=== PATIENT | male | born 1930 | race Caucasian/White ===

== ENCOUNTER 2017-04-10 12:10 | Emergency (ER) | payer MEDICARE, OTHER ==
[2017-04-10] MEDS ORDERED: Tetan/Diph/Pertus SYR(Tdap)* 0.5 ML SYR(BOOSTRIX) use SYR IM ONE (12:19)
[2017-04-10] MEDS ORDERED: Lidocaine 2% EPI 1:200000 MPF* 20 ML VIAL ONE (13:05)
--- NOTE | 2017-04-10 13:06 | RAD ---
HISTORY: Fall, head trauma COMPARISONS: November 17, 2007 TECHNIQUE: Multiple contiguous axial CT scans were obtained of the head without intravenous contrast. FINDINGS: HEMORRHAGE/INFARCT: There is no hemorrhage or acute infarct. MASSES/SHIFT: There is no mass or shift. EXTRA-AXIAL SPACES: There are no extra-axial fluid collections. SULCI AND VENTRICLES: The sulci and ventricles are normal in size and position for the patient's stated age. CEREBRUM: There are no focal parenchymal abnormalities. BRAINSTEM: There are no focal parenchymal abnormalities. CEREBELLUM: There are no focal parenchymal abnormalities. VESSELS: The vessels are grossly normal. PARANASAL SINUSES: The paranasal sinuses are clear. ORBITS: The orbits are unremarkable. BONES AND SOFT TISSUE: There is soft tissue swelling of the right frontal scalp. OTHER: None IMPRESSION: NO ACUTE INTRACRANIAL PATHOLOGY.
--- NOTE | 2017-04-10 13:09 | RAD ---
INDICATION: Fall. COMPARISON: No relevant prior exams available on the [facility] PACS for comparison. TECHNIQUE: Multidetector CT images foramen magnum to lung apices without contrast. Multiplanar reformation. REPORT: Normal vertebral alignment accounting for exam positioning without spondylolisthesis or subluxation at any level. Negative for cervical vertebral body or posterior element fracture. Negative for paravertebral hematoma. Advanced disc space narrowing with associated vertebral endplate osteophytosis and subchondral sclerosis at C5-C6. Less marked disc space narrowing at C6-C7. Mild multilevel facet joint osteoarthritis. Negative for significant acquired spinal stenosis at any level. IMPRESSION: Negative for traumatic cervical spine injury.
--- NOTE | 2017-04-10 13:21 | RAD ---
HISTORY: Fall, facial trauma COMPARISONS: August 11, 2012 TECHNIQUE: Multiple contiguous axial CT scans were obtained of the face without intravenous contrast, with coronal and sagittal multiplanar reformations. FINDINGS: BONES: There is no displaced fracture or dislocation. The orbital rim is intact. The zygomatic arch is intact. The pterygoid plates are intact. Degenerative changes are noted of the spine. ORBITS: The globes are round. The optic nerves are symmetric. The extraocular musculature is normal. There is no post septal or intraconal inflammatory change. There is no retrobulbar hematoma. PARANASAL SINUSES: There is mucosal thickening of the maxillary sinuses and ethmoid air cells. BRAIN AND SOFT TISSUE: There is soft tissue swelling of the right frontal scalp. OTHER: None. IMPRESSION: NO FACIAL FRACTURE
[2017-04-10 14:14] VITALS: BP 170/72
--- NOTE | 2017-04-11 08:16 | ED ---
Lanie Davis Gabriel, scribed for Brandon Talley MD on 04/10/17 at 1227 . Adult Trauma - HPI Summary HPI Summary: This patient is a 86 year old M BIBA to [facility] s/p fall that occurred [facility]. Patient had just finished a water Sal class at [employer] and was walking to his car in the parking lot when his legs became weak and he fell. Upon arrival patient was able to ambulate from the stretcher to the bed. Patient denies LOC, CP, SOB, dizziness, neck pain, memory loss, and confusion. Patient is not on blood thinner but took ASA this morning for a sore throat. Patient is unaware of when he has his last tetanus shot. - History of Current Complaint Stated Complaint: FALL Time Seen by Provider: 04/10/17 12:16 Hx Obtained From: Patient Mechanism of Injury: Fall Loss of Consciousness: no loss of consciousness Onset/Duration: Started Minutes Ago, Still Present Onset of Pain: Immediate Onset Severity: Mild Current Severity: Mild Pain Intensity: 2 Pain Scale Used: 0-10 Numeric Associated Signs & Symptoms: Positive: Negative - LOC, CP, SOB, dizziness, neck pain, and confusion. - Additional Pertinent History Primary Care Physician: [id number] - Allergy/Home Medications Allergies/Adverse Reactions: Allergies Allergy/AdvReac Type Severity Reaction Status Date / Time No Known Allergies Allergy Verified 05/05/15 02:22 PMH/Surg Hx/FS Hx/Imm Hx Endocrine/Hematology History: Reports: Hx Thyroid Disease - hypothyroidism Denies: Hx Diabetes Cardiovascular History: Reports: Hx Deep Vein Thrombosis - 2009, Other Cardiovascular Problems/Disorders - chronic lower extremity lymphadema Denies: Hx Hypertension Respiratory History: Reports: Hx Sleep Apnea - pt's own CPAP, Other Respiratory Problems/Disorders - KRISTA Denies: Hx Asthma, Hx Chronic Obstructive Pulmonary Disease (COPD) GI History: Denies: Hx Ulcer History: Reports: Hx Benign Prostatic Hyperplasia - s/p TURP, 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, Other Problems/ Disorders - TURP, R nephrectomy s/p renal cell carcinoma Sensory History: Reports: Hx Contacts or Glasses, Hx Glaucoma, Hx Hearing Aid - Bilat., Hx Hearing Problem Opthamlomology History: Reports: Hx Contacts or Glasses, Hx Glaucoma - Cancer History Cancer Type, Location and Year: Right kidney removed in 1990 - Surgical History Surgery Procedure, Year, and Place: t&a, gall bladder, bilat knee replacement, thyroid nodules removed, bilateral cataract, appendix, right kidney Infectious Disease History: Denies: Hx Hepatitis, Hx Human Immunodeficiency Virus (HIV), History Other Infectious Disease - Family History Known Family History: Negative: Renal Disease, Respiratory Disease, Seizure Disorder - Social History Alcohol Use: None Substance Use Type: Reports: None Smoking Status (MU): Never Smoked Tobacco Review of Systems Negative: Chest Pain Negative: Shortness Of Breath Musculoskeletal: Negative - neck pain, dizziness, confusion, memory loss Positive: Other - laceration to face Neurological: Negative - LOC All Other Systems Reviewed And Are Negative: Yes Physical Exam - Summary Physical Exam Summary: VITAL SIGNS: Reviewed. GENERAL: Patient is an obese male who is lying comfortable in the stretcher. Patient is not in any acute respiratory distress. HEAD AND FACE: laceration on the right eyebrow and right side of face. EYES: PERRLA, EOMI x 2, No injected conjunctiva, no nystagmus. EARS: Hearing grossly intact. Ear canals and tympanic membranes are within normal limits. MOUTH: Oropharynx within normal limits. NECK: Supple, trachea is midline, no adenopathy, no JVD, no carotid bruit, no c- spine tenderness, neck with full ROM. CHEST: Symmetric, no tenderness at palpation LUNGS: Clear to auscultation bilaterally. No wheezing or crackles. CVS: Regular rate and rhythm, S1 and S2 present, no murmurs or gallops appreciated. ABDOMEN: Soft, non-tender. No signs of distention. No rebound no guarding, and no masses palpated. Bowel sounds are normal. EXTREMITIES: FROM in all major joints, no edema, no cyanosis or clubbing. NEURO: Alert and oriented x 3. No acute neurological deficits. Speech is normal and follows commands. SKIN: Dry and warm, abrasion to the right ventral aspect of the hand Triage Information Reviewed: Yes Vital Signs On Initial Exam: Initial Vitals Temp Pulse Resp BP Pulse Ox 97.5 F 64 17 157/79 97 04/10/17 12:25 04/10/17 12:25 04/10/17 12:25 04/10/17 12:25 04/10/17 12:25 Vital Signs Reviewed: Yes Procedures - Laceration/Wound Repair 1 Location: head - above right eye Description: Irregular Anesthesia: 1.0%, Lido Betadine Prep?: Yes Irrigated w/ Saline (ccs): 500 Suture Type: Nylon Number of Sutures: 7 Diagnostics - Vital Signs Vital Signs Temp Pulse Resp BP Pulse Ox 04/10/17 14:12 97.9 F 66 17 170/72 97 04/10/17 12:25 97.5 F 64 17 157/79 97 - Laboratory Lab Statement: Any lab studies that have been ordered have been reviewed, and results considered in the medical decision making process. - CT CT C-spine CT Interpretation Completed By: Radiologist - Negative for traumatic cervical spine injury. ED physician has reviewed this radiology report. CT Brain CT Interpretation Completed By: Radiologist - NO ACUTE INTRACRANIAL PATHOLOGY. ED physician has reviewed this radiology report. CT Maxillofacial CT Interpretation Completed By: Radiologist - NO FACIAL FRACTURE ED physician has reviewed this radiology report. Adult Trauma Course/Dx - Course Assessment/Plan: This patient is a 86 year old M BIBA to [facility] s/p fall that occurred [employer]. Patient had just finished a water Sal class at [employer] and was walking to his car in the parking lot when his legs became weak and he fell. Upon arrival patient was able to ambulate from the stretcher to the bed. Patient denies LOC, CP, SOB, dizziness, neck pain, and confusion. Patient is not on blood thinner but took ASA this morning for a sore throat. Patient is unaware of when he has his last tetanus shot. CT C-spine reveals, per radiologist, Negative for traumatic cervical spine injury. CT Maxillofacial reveals, per radiologist, NO FACIAL FRACTURE. CT Brain reveals, per radiologist , NO ACUTE INTRACRANIAL PATHOLOGY. Patient had a mechanical fall. He denies MARRUFO dizziness double vision SOB CP and palpitations. There was laceration on the right eyebrow that was repaired he was give tetanus vaccine. He did not require pain medication. The patient is able to ambulating with cane and has no deficits so he will be discharged and follow up PCP. The patient is agreeable with this plan. - Diagnoses Differential Diagnosis/HQI/PQRI: Positive: Abrasion(s), Contusion(s), Fracture, Dislocation, Hematoma(s), Laceration(s), Sprain, Strain Provider Diagnoses: Laceration of face, Mechanical fall , Facial contusion, Abrasion Discharge - Discharge Plan Condition: Stable Disposition: HOME Patient Education Materials: Laceration (ED), Fall Prevention for Older Adults (ED) Referrals: Mikel Arriola MD [Medical Doctor] - 3 Days Additional Instructions: RETURN TO EMERGENCY DEPARTMENT FOR ANY NEW OR WORSENING SYMPTOMS The documentation as recorded by the Lanie strong Gabriel accurately reflects the service I personally performed and the decisions made by , Brandon Talley MD.
== END 2017-04-10 14:12 | disposition home or self-care (01) ==
LOC: ED 12:10
DX: S01.111A Laceration without foreign body of right eyelid and periocular area, initial encounter (principal); Z86.718 Personal history of other venous thrombosis and embolism; Z96.653 Presence of artificial knee joint, bilateral; N40.0 Benign prostatic hyperplasia without lower urinary tract symptoms; E03.9 Hypothyroidism, unspecified; W19.XXXA Unspecified fall, initial encounter; Y93.01 Activity, walking, marching and hiking; Y92.481 Parking lot as the place of occurrence of the external cause
CPT/HCPCS: 70450; 70486; 72125; 90471; 90715; 99282

== ENCOUNTER 2017-05-04 16:20 | Inpatient (IN) | payer MEDICARE, OTHER ==
--- NOTE | 2017-05-04 17:15 | RAD ---
INDICATION: Cough. COMPARISON: Comparison is made with a prior chest x-ray study from May 03, 2015. TECHNIQUE: A portable view of the chest was obtained. FINDINGS: Cardiac and mediastinal contours appear to be within normal limits. There is a small infiltrate at the right lung base. The lungs are otherwise clear. No pleural effusion is seen. IMPRESSION: SMALL RIGHT BASILAR INFILTRATE.
[2017-05-04 17:18] LABS: ABS Basophils 0 10^3/ul (0-0.2); ABS Eosinophils 0.1 10^3/ul (0-0.6); ABS Lymphocytes 1.2 10^3/ul (1.0-4.8); ABS Monocytes 0.7 10^3/ul (0-0.8); ABS Neutrophils 2.6 10^3/ul (1.5-7.7); ABS Nucleated RBC 0 10^3/ul; Eosinophil % 1.2 % (0-6); Hematocrit 39 % (42-52); Hemoglobin 13.7 g/dl (14.0-18.0); Lymphocyte % 26.3 % (25-47); Mean Corpuscular HGB Conc 35 g/dl (31-36); Mean Corpuscular Hemoglobin 31 pg (27-31); Mean Corpuscular Volume 88 fL (80-94); Mean Platelet Volume 8 um3 (7.4-10.4); Nucleated Red Blood Cells % 0.1; Platelet Count 108 10^3/ul (150-450); Red Blood Count 4.46 10^6/ul (4.0-5.4); Red Cell Distribution Width 14 % (10.5-15); White Blood Count 4.6 10^3/ul (3.5-10.8)
[2017-05-04 17:32] LABS: INR 1.13 (0.77-1.02)
[2017-05-04 17:35] LABS: Urine Appearance Clear; Urine Blood Negative (Negative); Urine Color Yellow; Urine Ketones Negative (Negative); Urine Protein 1+(30 mg/dL) (Negative); Urine Specific Gravity 1.017 (1.010-1.030); Urine Urobilinogen Negative (Negative)
[2017-05-04 17:49] LABS: EGFR Non-African American 47.8 (>60)
[2017-05-04] MEDS ORDERED: NS 0.9% 1000 ML* 1,000 ML IV ONE (18:21)
[2017-05-04] MEDS ORDERED: Levofloxacin 750 MG IVPREMIX(* 750 MG/150 ML BAG IVPB ONE (18:21)
[2017-05-04] MEDS ORDERED: Oseltamivir CAP* 75 MG CAP PO ONE (18:21)
--- NOTE | 2017-05-04 18:33 | ED ---
Pearl Davis Thomas, scribed for Raguh Epps MD on 05/04/17 at 1655 . Influenza-Like Illness - HPI Summary HPI Summary: The patient is an 86 year old male presenting with a fever, generalized weakness , and nasal drainage that began today. He has been dealing with a cough for the last few weeks that significantly worsened today. - History of Current Complaint Chief Complaint: EDFluSymptoms Time Seen by Provider: 05/04/17 16:27 Hx Obtained From: Patient Onset/Duration: Lasting Hours - onset today, Still Present Associated Signs & Symptoms: Fever, Cough, Nasal Congestion Related Hx: Possible Flu/Infectious Exposure - Allergy/Home Medications Allergies/Adverse Reactions: Allergies Allergy/AdvReac Type Severity Reaction Status Date / Time No Known Allergies Allergy Verified 05/05/15 02:22 PMH/Surg Hx/FS Hx/Imm Hx Endocrine/Hematology History: Reports: Hx Thyroid Disease - hypothyroidism Denies: Hx Diabetes Cardiovascular History: Reports: Hx Deep Vein Thrombosis - 2009, Other Cardiovascular Problems/Disorders - chronic lower extremity lymphadema Denies: Hx Hypertension Respiratory History: Reports: Hx Sleep Apnea - pt's own CPAP, Other Respiratory Problems/Disorders - KRISTA Denies: Hx Asthma, Hx Chronic Obstructive Pulmonary Disease (COPD) GI History: Denies: Hx Ulcer History: Reports: Hx Benign Prostatic Hyperplasia - s/p TURP, 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, Other Problems/ Disorders - TURP, R nephrectomy s/p renal cell carcinoma Sensory History: Reports: Hx Contacts or Glasses, Hx Glaucoma, Hx Hearing Aid - Bilat., Hx Hearing Problem Opthamlomology History: Reports: Hx Contacts or Glasses, Hx Glaucoma - Cancer History Cancer Type, Location and Year: Right kidney removed in 1990 - Surgical History Surgery Procedure, Year, and Place: t&a, gall bladder, bilat knee replacement, thyroid nodules removed, bilateral cataract, appendix, right kidney - Immunization History Date of Tetanus Vaccine: not upto date Infectious Disease History: No Infectious Disease History: Denies: Hx Hepatitis, Hx Human Immunodeficiency Virus (HIV), History Other Infectious Disease, Traveled Outside the [place] in Last 30 Days - Family History Known Family History: Negative: Renal Disease, Respiratory Disease, Seizure Disorder - Social History Alcohol Use: None Substance Use Type: Reports: None Smoking Status (MU): Never Smoked Tobacco Review of Systems Positive: Fever, Other - Generalized weakness Positive: Nasal Discharge Positive: Cough All Other Systems Reviewed And Are Negative: Yes Physical Exam - Summary Physical Exam Summary: Appearance: The patient is well-nourished in no acute distress and in no acute pain. Skin: The skin is warm and dry and skin color reflects adequate perfusion. HEENT: The head is normocephalic and atraumatic. The pupils are equal and reactive. The conjunctivae are clear and without drainage. Nares are patent and with congestion. Mouth reveals moist mucous membranes and the throat is without erythema and exudate. The external ears are intact. The ear canals are patent and without drainage. The tympanic membranes are intact. Neck: the neck is supple with full range of motion and non-tender. There are no carotid bruits. There is no neck vein distension. Respiratory: Chest is non-tender. He has coarse upper airway sounds. Cardiovascular: Heart is regular rate and rhythm. There is no murmur or rub auscultated. There is no peripheral edema and pulses are symmetrical and equal. Abdomen: The abdomen is soft and non-tender. There are normal bowel sounds heard in all four quadrants and there is no organomegaly palpated. Musculoskeletal: There is no back tenderness noted. Extremities are non-tender with full range of motion. There is good capillary refill. There is no peripheral edema or calf tenderness elicited. Neurological: Patient is alert and oriented to person, place and time. The patient has symmetrical motor strength in all four extremities. Cranial nerves are grossly intact. Deep tendon reflexes are symmetrical and equal in all four extremities. Psychiatric: The patient has an appropriate affect and does not exhibit any anxiety or depression. Triage Information Reviewed: Yes Vital Signs On Initial Exam: Initial Vitals Temp Pulse Resp BP Pulse Ox 100.7 F 82 20 158/69 97 05/04/17 16:24 1818 16:24 18 16:24 05/04/17 16:24 05/04/17 16:24 Vital Signs Reviewed: Yes Diagnostics - Vital Signs Vital Signs Temp Pulse Resp BP Pulse Ox 05/04/17 16:24 100.7 F 82 20 158/69 97 - Laboratory Lab Results: Lab Results 05/04/17 05/04/17 05/04/17 Range/Units 17:05 17:06 17:06 WBC 4.6 (3.5-10.8) 10^3/ul RBC 4.46 (4.0-5.4) 10^6/ul Hgb 13.7 L (14.0-18.0) g/dl Hct 39 L (42-52) % MCV 88 (80-94) fL MCH 31 (27-31) pg MCHC 35 (31-36) g/dl RDW 14 (10.5-15) % Plt Count 108 L (150-450) 10^3/ul MPV 8 (7.4-10.4) um3 Neut % (Auto) 57.4 (38-83) % Lymph % (Auto) 26.3 (25-47) % [place] % (Auto) 14.7 H (1-9) % Eos % (Auto) 1.2 (0-6) % Baso % (Auto) 0.4 (0-2) % Absolute Neuts (auto) 2.6 (1.5-7.7) 10^3/ul Absolute Lymphs (auto) 1.2 (1.0-4.8) 10^3/ul Absolute Monos (auto) 0.7 (0-0.8) 10^3/ul Absolute Eos (auto) 0.1 (0-0.6) 10^3/ul Absolute Basos (auto) 0 (0-0.2) 10^3/ul Absolute Nucleated RBC 0 10^3/ul Nucleated RBC % 0.1 INR (Anticoag Therapy) (0.77-1.02) Sodium 136 (133-145) mmol/L Potassium 4.3 (3.5-5.0) mmol/L Chloride 104 (101-111) mmol/L Carbon Dioxide 25 (22-32) mmol/L Anion Gap 7 (2-11) mmol/L BUN 18 (6-24) mg/dL Creatinine 1.41 H (0.67-1.17) mg/dL Est GFR ( Amer) 61.4 (>60) Est GFR (Non-Af Amer) 47.8 (>60) BUN/Creatinine Ratio 12.8 (8-20) Glucose 122 H (70-100) mg/dL Lactic Acid (0.5-2.0) mmol/L Calcium 9.1 (8.6-10.3) mg/dL Total Bilirubin 0.60 (0.2-1.0) mg/dL AST 36 (13-39) U/L ALT 39 (7-52) U/L Alkaline Phosphatase 54 (34-104) U/L Troponin I 0.01 (<0.04) ng/mL C-Reactive Protein 11.95 H (< 5.00) mg/L Total Protein 6.4 (6.4-8.9) g/dL Albumin 3.9 (3.2-5.2) g/dL Globulin 2.5 (2-4) g/dL Albumin/Globulin Ratio 1.6 (1-3) Urine Color Yellow Urine Appearance Clear Urine pH 6.0 (5-9) Ur Specific [place] 1.017 (1.010-1.030) Urine Protein 1+(30 mg/dl) H (Negative) Urine Ketones Negative (Negative) Urine Blood Negative (Negative) Urine Nitrate Negative (Negative) Urine Bilirubin Negative (Negative) Urine Urobilinogen Negative (Negative) Ur Leukocyte Esterase Negative (Negative) Urine WBC (Auto) Absent (Absent) Urine RBC (Auto) Absent (Absent) Urine Bacteria Absent (Absent) Urine Glucose Negative (Negative) Influenza A (Rapid) (Negative) Influenza B (Rapid) (Negative) 05/04/17 05/04/17 05/04/17 Range/Units 17:06 17:06 17:12 WBC (3.5-10.8) 10^3/ul RBC (4.0-5.4) 10^6/ul Hgb (14.0-18.0) g/dl Hct (42-52) % MCV (80-94) fL MCH (27-31) pg MCHC (31-36) g/dl RDW (10.5-15) % Plt Count (150-450) 10^3/ul MPV (7.4-10.4) um3 Neut % (Auto) (38-83) % Lymph % (Auto) (25-47) % [place] % (Auto) (1-9) % Eos % (Auto) (0-6) % Baso % (Auto) (0-2) % Absolute Neuts (auto) (1.5-7.7) 10^3/ul Absolute Lymphs (auto) (1.0-4.8) 10^3/ul Absolute Monos (auto) (0-0.8) 10^3/ul Absolute Eos (auto) (0-0.6) 10^3/ul Absolute Basos (auto) (0-0.2) 10^3/ul Absolute Nucleated RBC 10^3/ul Nucleated RBC % INR (Anticoag Therapy) 1.13 H (0.77-1.02) Sodium (133-145) mmol/L Potassium (3.5-5.0) mmol/L Chloride (101-111) mmol/L Carbon Dioxide (22-32) mmol/L Anion Gap (2-11) mmol/L BUN (6-24) mg/dL Creatinine (0.67-1.17) mg/dL Est GFR ( Amer) (>60) Est GFR (Non-Af Amer) (>60) BUN/Creatinine Ratio (8-20) Glucose (70-100) mg/dL Lactic Acid 1.3 (0.5-2.0) mmol/L Calcium (8.6-10.3) mg/dL Total Bilirubin (0.2-1.0) mg/dL AST (13-39) U/L ALT (7-52) U/L Alkaline Phosphatase (34-104) U/L Troponin I (<0.04) ng/mL C-Reactive Protein (< 5.00) mg/L Total Protein (6.4-8.9) g/dL Albumin (3.2-5.2) g/dL Globulin (2-4) g/dL Albumin/Globulin Ratio (1-3) Urine Color Urine Appearance Urine pH (5-9) Ur Specific [place] (1.010-1.030) Urine Protein (Negative) Urine Ketones (Negative) Urine Blood (Negative) Urine Nitrate (Negative) Urine Bilirubin (Negative) Urine Urobilinogen (Negative) Ur Leukocyte Esterase (Negative) Urine WBC (Auto) (Absent) Urine RBC (Auto) (Absent) Urine Bacteria (Absent) Urine Glucose (Negative) Influenza A (Rapid) Negative (Negative) Influenza B (Rapid) Positive H (Negative) Result Diagrams: 05/04/17 17:06 05/04/17 17:06 Lab Statement: Any lab studies that have been ordered have been reviewed, and results considered in the medical decision making process. - Radiology CXR Xray Interpretation: Positive (See Comments) - SMALL RIGHT BASILAR INFILTRATE. Dr. Epps has reviewed this report. Radiology Interpretation Completed By: Radiologist Flu Symptom Course/Dx - Course Course Of Treatment: Mr. Shah has has URI symptoms for less than a day. He is too weak to safely walk on his own and his is too frail to help him (his BMI is 39). He was found to have influenza B and a secondary pneumonia. He was treated with Tamiflu, IV NS and Levaquin. - Diagnoses Provider Diagnoses: Influenza, Pneumonia - Physician Notifications Discussed Care Of Patient With: Ryley Weeks Time Discussed With Above Provider: 18:24 Instructed by Provider To: Admit As Inpatient Discharge - Discharge Plan Condition: Stable Disposition: ADMITTED TO [facility] Referrals: Niurka Lei MD [Primary Care Provider] - The documentation as recorded by the Pearl strong Thomas accurately reflects the service I personally performed and the decisions made by me, Raghu Epps MD.
[2017-05-04] MEDS ORDERED: Acetaminophen TAB* 325 MG PO ONE (19:19)
[2017-05-04] MEDS ORDERED: Albuterol 2.5 MG/3 ML NEB.SOL* (0.083%) INH PRN (19:22)
[2017-05-04] MEDS ORDERED: Al Hydrox/Mg Hydrox/Simet LIQ* 30 ML UDC PO PRN (19:22)
[2017-05-04] MEDS ORDERED: Magnesium Hydroxide LIQ* 30 ML UDC PO PRN (19:22)
[2017-05-04] MEDS ORDERED: NS 0.9% 1000 ML* 1,000 ML IV SCH (19:30)
[2017-05-04] MEDS: cefTRIAXone(*) 1 GM in D5W 50 ML BAG* 50 ML IVPB SCH (21:14)
[2017-05-04] MEDS: Azithromycin IV(*) 500 MG in NS 0.9% 250 ML* 250 ML IVPB SCH (22:26)
[2017-05-04] MEDS: Heparin VIAL(*) 5000 UNITS/ML VIAL (FIVE THOUSAND) SUBCUT SCH (22:44)
[2017-05-05] MEDS ORDERED: Ondansetron INJ* 2 MG/ML VIAL IV PRN (04:27)
[2017-05-05] MEDS: Heparin VIAL(*) 5000 UNITS/ML VIAL (FIVE THOUSAND) SUBCUT SCH ×3 (06:19→21:22)
[2017-05-05] MEDS: Levothyroxine TAB* 100 MCG TAB PO SCH (06:19)
--- NOTE | 2017-05-05 06:30 | HP ---
CC: Dr. Niurka Lei * HISTORY AND PHYSICAL: DATE OF ADMISSION: 05/04/17 PROVIDER: Lola Rucker NP PRIMARY CARE PROVIDER: Dr. Niurka Lei. ATTENDING PHYSICIAN WHILE IN THE HOSPITAL: Dr. Ryley Weeks * (dictated by Lola Rucker NP). CHIEF COMPLAINT: 1. Weakness. 2. Influenza. HISTORY OF PRESENT ILLNESS: Mr. Shah is an 86-year-old gentleman, who carries a history of BPH; renal cell carcinoma; hypothyroid; chronic kidney disease, stage 3; glaucoma, who was brought to the emergency room by EMS due to weakness and fever. The patient states that he developed a cough approximately 3 days ago and the cough became worse yesterday, he reports this is a nonproductive cough. He states that today, he felt a fever and generalized weakness, muscle and joint aches. He states that his fever at home today was 101.7; at that time , his called his primary care physician, who instructed him to come to the emergency room. Due to his increased level of weakness, EMS was called and he was brought to the emergency room by EMS. He denies any other complaints other than the weakness, fatigue, and fever. He denies any falls. Denies any head injury. Denies any loss of consciousness. Denies any nausea, vomiting, or diarrhea. Denies any abdominal pain. Denies any shortness of breath or chest pain. Denies any urinary frequency. He does report urgency, but that is relieved if he stands to urinate. The patient does have a documented fever of 100.7 in the emergency room. Because of his profound weakness, fever, and positive influenza B, we were asked to evaluate him for admission. PAST MEDICAL HISTORY: Significant for: 1. BPH. 2. Renal cell carcinoma. 3. Hypothyroid. 4. Chronic kidney disease, stage 3. 5. Glaucoma. PAST SURGICAL HISTORY: Includes: 1. Right nephrectomy. 2. Prostate resection. 3. Arthroplasty of bilateral knees. 4. Tonsil and adenoids. 5. Appendectomy. 6. Cholecystectomy. 7. Thyroidectomy. ALLERGIES TO MEDICATIONS: No known drug allergies. FAMILY HISTORY: Coronary artery disease. Father had hypertension. Mother had diabetes and mother also had breast cancer. SOCIAL HISTORY: The patient has never smoked. He reports rare use of alcohol. Denies any drug use. He is currently retired as a sheet metal mechanic. He is and lives with his at home. His surrogate decision maker in the event he is unable to make his own decisions is his , her name is Amna Shah, her phone number is [phone]. REVIEW OF SYSTEMS: There was a documented fever. There has been no significant weight change. No double vision. Denies any ear drainage. Does report some rhinorrhea. Denies sore throat. Denies any chest pain. Denies orthopnea or nocturnal dyspnea. There is no abdominal pain. No nausea or vomiting. No diarrhea. No dysuria, no frequency. No seizures or loss of consciousness. No pruritus or skin ulcerations. A review of 14 systems was completed and all others are negative. PHYSICAL EXAMINATION GENERAL: At this time, Mr. Shah is an 86-year-old, who appears flushed, sitting on the stretcher in the emergency room. He does not appear to be in any acute distress. VITAL SIGNS: Blood pressure 171/72, heart rate is 71, respirations are 16 and regular, O2 saturation is 92% to 97% on room air. HEENT: Head is atraumatic, normocephalic. Eyes: EOMs are intact. Sclerae anicteric, not pale. Oral mucosa appears moist. No oropharyngeal erythema. NECK: Supple. LUNGS: With expiratory wheezes throughout bilaterally and diminished on the right base. There are no rales or rhonchi. CARDIAC: Heart sounds S1, S2. Regular rate and rhythm. There are no murmurs, rubs, or gallops. ABDOMEN: Soft and nontender. Bowel sounds are present x4. EXTREMITIES: Pulses are +2 throughout. He is able to move all 4 extremities with 5/5 strength. NEUROLOGIC: He is awake, alert, and oriented x3. His tongue is midline. Speech is clear. There are no gross focal deficits. SKIN: Intact. DIAGNOSTIC STUDIES/LAB DATA: WBC 4.6, RBC 4.46, hemoglobin 13.7, hematocrit 39 , platelet count was 108. INR was 1.13. Chemistry: Sodium 136, potassium 4.3 , chloride 104, carbon dioxide 25, anion gap 7, BUN 18, creatinine 1.41, glucose is 122, lactic acid was 1.3, calcium 9.1. AST 36, ALT 39. Troponin was 0.01. C- reactive protein was 11.95. Urine was clear, pH was 6; specific gravity 1.017; urine protein was 1+; urine ketones, blood, nitrites, bilirubin, , leukocyte esterase, wbc's, rbc's, urine bacteria, and urine glucose were all negative. Influenza A was negative, influenza B was positive. Chest x-ray shows small right basilar infiltrate. ASSESSMENT AND PLAN: Mr. Shah is an 86-year-old man that presented to the emergency room today by EMS for complaints of generalized weakness, fever, and cough. We were asked to evaluate due to his weakness and cough and he will be admitted inpatient for: 1. Weakness. I suspect this is probably related to his fever and influenza. I think that it would be beneficial to get him physical therapy evaluation for strength training so he can return home. His chest x-ray does show a right basilar infiltrate. I suspect this is related to pneumonia. He also tested positive for influenza B, which is probably contributing to his weakness and has a documented fever at home of 101.7 and in the emergency room of 100.7, also feels this is contributing to his generalized weakness and body aches. 2. Suspect right lower lobe pneumonia. We will place him on azithromycin 500 mg IV q.24 hours and ceftriaxone 1 g q.24 hours. He does have some wheezing present during auscultation. I will also order albuterol nebs q.4 hours as needed for shortness of breath and wheezing. 3. Fever. I suspect this is related to his influenza and possible pneumonia. We will continue to treat him with IV antibiotics for the pneumonia and Tamiflu for the influenza and we will give acetaminophen as needed to treat the fever. 4. Influenza B. We will place him on Tamiflu 30 mg p.o. b.i.d. He needs a renal adjusted dose to his creatinine of 1.41. 5. Glaucoma. He will continue his home eye drops timolol 0.5% and latanoprost 0.005%. 6. Benign prostatic hyperplasia. He will be placed on mg. 7. Hypothyroidism. He will continue his levothyroxine 200 mcg. 8. DVT prophylaxis. He will be placed on heparin 5000 units subcu daily q.8 hours. 9. Code status. He is a full code. 10. Fluid, electrolytes, and nutrition. He will be placed on a heart-healthy, caffeine okay diet. TIME SPENT: On this admission was approximately 60 minutes, greater than half that time was spent [id number] with the patient and his obtaining history and physical and the other time was spent going over his plan of care with the patient and implementing the plan of care. I have discussed this with my attending, Dr. Ryley Weeks, and he is in agreement with my plan. LOLA RUCKER, W[employer] TECHNICIAN [id number]/[facility] #: [id number] NIKITA
[2017-05-05 06:40] LABS: ABS Basophils 0 10^3/ul (0-0.2); ABS Eosinophils 0 10^3/ul (0-0.6); ABS Lymphocytes 1.2 10^3/ul (1.0-4.8); ABS Monocytes 0.4 10^3/ul (0-0.8); ABS Neutrophils 1.2 10^3/ul (1.5-7.7); ABS Nucleated RBC 0 10^3/ul; Eosinophil % 0.5 % (0-6); Hematocrit 36 % (42-52); Hemoglobin 12.8 g/dl (14.0-18.0); Lymphocyte % 41.5 % (25-47); Mean Corpuscular HGB Conc 36 g/dl (31-36); Mean Corpuscular Hemoglobin 31 pg (27-31); Mean Corpuscular Volume 88 fL (80-94); Mean Platelet Volume 8 um3 (7.4-10.4); Nucleated Red Blood Cells % 0.3; Platelet Count 93 10^3/ul (150-450); Red Cell Distribution Width 14 % (10.5-15); White Blood Count 2.8 10^3/ul (3.5-10.8)
[2017-05-05] MEDS: Timolol 0.5% OPTH.SOL* BTL BOTH EYES SCH (09:36)
[2017-05-05] MEDS: Oseltamivir CAP* 30 MG CAP PO SCH ×2 (09:37→21:22)
[2017-05-05] MEDS ORDERED: hydrALAZINE IV* 20 MG/ML VIAL IV SLOW PU PRN (12:09)
--- NOTE | 2017-05-05 12:28 | PN ---
Subjective Date of Service: 05/05/17 Interval History: Patient seen and examined at bedside. Denies fever, chills, headache, shortness of breath, chest discomfort, N/V/D. Pt states that he is feeling much better then when he arrived to the hospital. Pt states that his normal blood pressure is 130s systolic and high is no more than 150s. Family History: Unchanged from Admission Social History: Unchanged from Admission Past Medical History: Unchanged from Admission Objective Active Medications: Acetaminophen (Tylenol Tab*) 650 mg PO Q4H PRN Reason: FEVER/PAIN Al Hydrox/Mg Hydrox/Simethicone (Maalox Plus*) 30 ml PO Q6H PRN Reason: INDIGESTION Albuterol (Ventolin 2.5 Mg/3 Ml Neb.Guillermina*) 2.5 mg INH [id number] AWAKE PRN Reason: sob/wheezing Amlodipine Besylate (Norvasc Tab*) 5 mg PO DAILY [facility] Fesoterodine Fumarate (Toviaz (Nf)) 8 mg PO DAILY [facility] Heparin Sodium (Porcine) (Heparin Vial(*)) 5,000 units SUBCUT Q8HR [facility] Hydralazine HCl (Apresoline Iv*) 5 mg IV SLOW PU Q6H PRN Reason: Systolic Bp Greater Than: 185 Sodium Chloride (Ns 0.9% 1000 Ml*) 1,000 mls @ 75 mls/hr IV PER RATE [facility] Stop: 05/06/17 08:49 Ceftriaxone Sodium 1 gm/ (Dextrose) 50 mls @ 200 mls/hr IVPB Q24H [facility] Azithromycin 500 mg/ Sodium (Chloride) 250 mls @ 250 mls/hr IVPB Q24H [facility] Latanoprost (Xalatan 0.005%*) 1 drop BOTH EYES BEDTIME [facility] Levothyroxine Sodium (Synthroid Tab*) 200 mcg PO DAILY@0600 [facility] Magnesium Hydroxide (Milk Of Magnesia Liq*) 30 ml PO Q4H PRN Reason: CONSTIPATION Ondansetron HCl (Zofran Inj*) 4 mg IV Q6H PRN Reason: NAUSEA Oseltamivir Phosphate (Tamiflu Cap*) 30 mg PO BID [facility] Stop: 05/09/17 09:01 Timolol Maleate (Timoptic 0.5% Opth*) 1 drop BOTH EYES DAILY [facility] Vital Signs - 8 hr 05/05/17 05/05/17 05/05/17 07:51 08:29 11:13 Temperature 98.1 F 97.9 F Pulse Rate 77 62 Respiratory 16 16 20 Rate Blood Pressure 164/73 183/67 (mmHg) O2 Sat by Pulse 97 97 97 Oximetry 05/05/17 12:07 Temperature Pulse Rate Respiratory Rate Blood Pressure 192/98 (mmHg) O2 Sat by Pulse Oximetry Oxygen Devices in Use Now: None Appearance: NAD, laying in bed Ears/Nose/Mouth/Throat: Mucous Membranes Moist Respiratory: Symmetrical Chest Expansion and Respiratory Effort Cardiovascular: NL Sounds; No Murmurs; No JVD, RRR Abdominal: NL Sounds; No Tenderness; No Distention Extremities: No Edema Skin: No Rash or Ulcers Neurological: Alert and Oriented x 3, NL Muscle Strength and Tone Lines/Tubes/Other Access: Clean, Dry and Intact Peripheral IV - site benign Nutrition: Taking PO's Result Diagrams: 05/05/17 06:13 05/05/17 06:12 Additional Lab and Data: Microbiology and Other Data: Microbiology 05/05/17 06:45 Gram Stain - Final Sputum Assess/Plan/Problems-Billing Assessment: Mr. Shah is an 86 yo male with PMH significant for BPH, renal cell CA, hypothyroidism, CKD stage 3, and glaucoma who presented to the emergency room with complaints of weakness and cough - Patient Problems (1) Pneumonia Code(s): J18.9 - PNEUMONIA, UNSPECIFIED ORGANISM SNOMED Code(s): 505160632 Comment: - Afebrile and no leukocytosis - Legionella and S. Pneumo urine antigens negative - Sputum culture, pending - Continue azithromycin and ceftriaxone (2) Influenza B Code(s): J10.1 - FLU DUE TO OTH IDENT INFLUENZA VIRUS W OTH RESP MANIFEST SNOMED Code(s): 98845691 Comment: - Continue Tamiflu (renally dosed) and supportive care (3) HTN (hypertension) Code(s): I10 - ESSENTIAL (PRIMARY) HYPERTENSION SNOMED Code(s): 97387202 Comment: - SBP 140-190's - Will start amlodipine and hydralazine PRN for SBP > 185 (4) Weakness Code(s): R53.1 - WEAKNESS SNOMED Code(s): 04361401 Comment: - Resolving - Suspect secondary to PNA and Influenza B - Continue PT (5) BPH (benign prostatic hyperplasia) Code(s): N40.0 - BENIGN PROSTATIC HYPERPLASIA WITHOUT LOWER URINRY TRACT SYMP SNOMED Code(s): 991748295 Comment: - Continue Toviaz (6) Glaucoma Code(s): H40.9 - UNSPECIFIED GLAUCOMA SNOMED Code(s): 00354006 Comment: - Continue timolol and lantanoprost (7) Chronic kidney disease (CKD), stage III (moderate) Code(s): N18.3 - CHRONIC KIDNEY DISEASE, STAGE 3 (MODERATE) SNOMED Code(s): 249225911 Comment: - Stage 3 - Stable, at baseline (8) History of hypothyroidism Code(s): Z86.39 - PERSONAL HISTORY OF ENDO, NUTRITIONAL AND METABOLIC DISEASE SNOMED Code(s): 838832897 Comment: - TSH 3.16 - Continue levothyroxine (9) History of renal cell carcinoma Code(s): Z85.528 - PERSONAL HISTORY OF OTHER MALIGNANT NEOPLASM OF KIDNEY SNOMED Code(s): 368969467 (10) Obstructive sleep apnea on CPAP Code(s): G47.33 - OBSTRUCTIVE SLEEP APNEA (ADULT) (PEDIATRIC) SNOMED Code(s): 10753654 Comment: - Continue CPAP (11) DVT prophylaxis Code(s): ZSO1817 - SNOMED Code(s): 963196713 Comment: - SQ Heparin (12) Full code status Code(s): Z78.9 - OTHER SPECIFIED HEALTH STATUS SNOMED Code(s): 424527265 Status and Disposition: Inpatient. Discharge to home when medically stable, possibly in the morning.
[2017-05-05] MEDS: FESOTERODINE 8 MG PO SCH (12:38)
[2017-05-05] MEDS: amLODIPine TAB* 5 MG PO SCH (12:39)
[2017-05-05] MEDS ORDERED: Latanoprost 0.005%* 2.5 ml BTL BOTH EYES SCH (21:00)
[2017-05-05] MEDS: cefTRIAXone(*) 1 GM in D5W 50 ML BAG* 50 ML IVPB SCH (21:21)
[2017-05-05] MEDS: Azithromycin IV(*) 500 MG in NS 0.9% 250 ML* 250 ML IVPB SCH (22:00)
[2017-05-06] MEDS: Heparin VIAL(*) 5000 UNITS/ML VIAL (FIVE THOUSAND) SUBCUT SCH (05:56)
[2017-05-06] MEDS: Levothyroxine TAB* 100 MCG TAB PO SCH (05:56)
[2017-05-06] MEDS: Acetaminophen TAB* 325 MG PO PRN ×2 (05:56→11:31)
[2017-05-06 07:09] LABS: EGFR Non-African American 50.7 (>60)
[2017-05-06 07:28] LABS: Hematocrit 37 % (42-52); Mean Corpuscular HGB Conc 35 g/dl (31-36); Mean Corpuscular Hemoglobin 31 pg (27-31); Mean Corpuscular Volume 88 fL (80-94); Mean Platelet Volume 8 um3 (7.4-10.4); Platelet Count 97 10^3/ul (150-450); Red Blood Count 4.19 10^6/ul (4.0-5.4); Red Cell Distribution Width 14 % (10.5-15); White Blood Count 3.2 10^3/ul (3.5-10.8)
[2017-05-06 07:55] LABS: ABS Basophils 0 10^3/ul (0-0.2); ABS Eosinophils 0.1 10^3/ul (0-0.6); ABS Lymphocytes 1.5 10^3/ul (1.0-4.8); ABS Monocytes 0.4 10^3/ul (0-0.8); ABS Neutrophils 1.3 10^3/ul (1.5-7.7); ABS Nucleated RBC 0 10^3/ul; Eosinophil % 2.2 % (0-6); Lymphocyte % 45.8 % (25-47); Nucleated Red Blood Cells % 0.2
[2017-05-06] MEDS: FESOTERODINE 8 MG PO SCH (08:10)
[2017-05-06] MEDS: amLODIPine TAB* 5 MG PO SCH (08:10)
[2017-05-06] MEDS: Timolol 0.5% OPTH.SOL* BTL BOTH EYES SCH (08:10)
[2017-05-06] MEDS: Oseltamivir CAP* 30 MG CAP PO SCH (08:10)
[2017-05-06 11:11] VITALS: BP 127/65
--- NOTE | 2017-05-06 12:23 | PN ---
Subjective Date of Service: 05/06/17 Interval History: Patient seen and examined at bedside. Denies fever, chills, shortness of breath , chest discomfort, N/V/D. Pt reports wheezing when laying back, this mostly clears with cough, he also reports nasal congestion and postnasal drip. Pt reports discomfort in his left thigh, feels like he has strained a muscle. Family History: Unchanged from Admission Social History: Unchanged from Admission Past Medical History: Unchanged from Admission Objective Active Medications: Acetaminophen (Tylenol Tab*) 650 mg PO Q4H PRN Reason: FEVER/PAIN Al Hydrox/Mg Hydrox/Simethicone (Maalox Plus*) 30 ml PO Q6H PRN Reason: INDIGESTION Albuterol (Ventolin 2.5 Mg/3 Ml Neb.Guillermina*) 2.5 mg INH [id number] AWAKE PRN Reason: sob/wheezing Amlodipine Besylate (Norvasc Tab*) 5 mg PO DAILY [facility] Fesoterodine Fumarate (Toviaz (Nf)) 8 mg PO DAILY [facility] Heparin Sodium (Porcine) (Heparin Vial(*)) 5,000 units SUBCUT Q8HR [facility] Hydralazine HCl (Apresoline Iv*) 5 mg IV SLOW PU Q6H PRN Reason: Systolic Bp Greater Than: 185 Ceftriaxone Sodium 1 gm/ (Dextrose) 50 mls @ 200 mls/hr IVPB Q24H [facility] Azithromycin 500 mg/ Sodium (Chloride) 250 mls @ 250 mls/hr IVPB Q24H [facility] Latanoprost (Xalatan 0.005%*) 1 drop BOTH EYES BEDTIME [facility] Levothyroxine Sodium (Synthroid Tab*) 200 mcg PO DAILY@0600 [facility] Magnesium Hydroxide (Milk Of Magnesia Liq*) 30 ml PO Q4H PRN Reason: CONSTIPATION Ondansetron HCl (Zofran Inj*) 4 mg IV Q6H PRN Reason: NAUSEA Oseltamivir Phosphate (Tamiflu Cap*) 30 mg PO BID [facility] Stop: 05/09/17 09:01 Timolol Maleate (Timoptic 0.5% Opth*) 1 drop BOTH EYES DAILY [facility] Vital Signs - 8 hr 05/06/17 05/06/17 05/06/17 07:28 08:00 11:09 Temperature 97.7 F 97.8 F Pulse Rate 69 76 Respiratory 16 16 16 Rate Blood Pressure 147/67 127/65 (mmHg) O2 Sat by Pulse 95 95 98 Oximetry Oxygen Devices in Use Now: None Appearance: NAD, laying in bed Ears/Nose/Mouth/Throat: Mucous Membranes Moist Respiratory: Symmetrical Chest Expansion and Respiratory Effort, - - Upper airway rhonchi, Lung sounds diminished Cardiovascular: NL Sounds; No Murmurs; No JVD, RRR Abdominal: NL Sounds; No Tenderness; No Distention Extremities: - - trace bilateral LE edema Skin: No Rash or Ulcers Neurological: Alert and Oriented x 3, NL Muscle Strength and Tone Lines/Tubes/Other Access: Clean, Dry and Intact Peripheral IV - site benign Nutrition: Taking PO's Result Diagrams: 05/06/17 06:14 05/06/17 06:14 Additional Lab and Data: Microbiology and Other Data: Microbiology 05/05/17 06:45 Gram Stain - Final Sputum Assess/Plan/Problems-Billing Assessment: Mr. Shah is an 86 yo male with PMH significant for BPH, renal cell CA, hypothyroidism, CKD stage 3, and glaucoma who presented to the emergency room with complaints of weakness and cough - Patient Problems (1) Pneumonia Code(s): J18.9 - PNEUMONIA, UNSPECIFIED ORGANISM SNOMED Code(s): 012428035 Comment: - Afebrile and no leukocytosis - Legionella and S. Pneumo urine antigens negative - Blood cultures, no growth day 1 - Sputum culture, pending - Continue azithromycin and change to cefdinir (2) Influenza B Code(s): J10.1 - FLU DUE TO OTH IDENT INFLUENZA VIRUS W OTH RESP MANIFEST SNOMED Code(s): 98430951 Comment: - Continue Tamiflu (renally dosed) and supportive care (3) HTN (hypertension) Code(s): I10 - ESSENTIAL (PRIMARY) HYPERTENSION SNOMED Code(s): 44523189 Comment: - SBP 120-160's - Continue amlodipine (4) Weakness Code(s): R53.1 - WEAKNESS SNOMED Code(s): 74221390 Comment: - Resolving - Suspect secondary to PNA and Influenza B (5) BPH (benign prostatic hyperplasia) Code(s): N40.0 - BENIGN PROSTATIC HYPERPLASIA WITHOUT LOWER URINRY TRACT SYMP SNOMED Code(s): 167933632 Comment: - Continue Toviaz (6) Glaucoma Code(s): H40.9 - UNSPECIFIED GLAUCOMA SNOMED Code(s): 10550529 Comment: - Continue timolol and lantanoprost (7) Chronic kidney disease (CKD), stage III (moderate) Code(s): N18.3 - CHRONIC KIDNEY DISEASE, STAGE 3 (MODERATE) SNOMED Code(s): 864144781 Comment: - Stage 3 - Stable, at baseline (8) History of hypothyroidism Code(s): Z86.39 - PERSONAL HISTORY OF ENDO, NUTRITIONAL AND METABOLIC DISEASE SNOMED Code(s): 122769338 Comment: - TSH 3.16 - Continue levothyroxine (9) History of renal cell carcinoma Code(s): Z85.528 - PERSONAL HISTORY OF OTHER MALIGNANT NEOPLASM OF KIDNEY SNOMED Code(s): 344438738 (10) Obstructive sleep apnea on CPAP Code(s): G47.33 - OBSTRUCTIVE SLEEP APNEA (ADULT) (PEDIATRIC) SNOMED Code(s): 79352300 Comment: - Continue CPAP (11) DVT prophylaxis Code(s): UNL8147 - SNOMED Code(s): 820406190 Comment: - SQ Heparin (12) Full code status Code(s): Z78.9 - OTHER SPECIFIED HEALTH STATUS SNOMED Code(s): 871711040 Status and Disposition: Inpatient. Stable for discharge to home today.
--- NOTE | 2017-05-07 16:28 | DS ---
CC: Dr. Niurka Lei * DATE OF ADMISSION: 05/04/2017 DATE OF DISCHARGE: 05/06/2017 ATTENDING PHYSICIAN: Dr. Lyle Lyman * (dictated by Chace Chester NP). PRIMARY CARE PROVIDER: Dr. Niurka Lei. PRIMARY DIAGNOSES: 1. Influenza B. 2. Right lower lobe pneumonia. 3. Hypertension. 4. IV weakness, resolved. SECONDARY DIAGNOSES: 1. Glaucoma. 2. Benign prostatic hyperplasia. 3. Hypothyroidism. STUDIES DONE WHILE IN THE HOSPITAL: Chest x-ray on 05/04/2017: Radiologist's impression: Small right basilar infiltrate. DISCHARGE MEDICATIONS: New home medication: 1. Acetaminophen 650 mg oral every 4 hours as needed for fever or pain. 2. Tamiflu 30 mg oral twice daily for 3 more days to complete a 5 day course. 3. Amlodipine 5 mg oral daily. 4. Azithromycin 250 mg oral daily for 5 more days. 5. Cefdinir 300 mg oral twice daily for 8 more days. Continued home medications: 1. Timolol 0.5% one drop to both eyes daily. 2. Levothyroxine 200 mcg oral daily. 3. Latanoprost 0.005 one drop to both eyes daily. 4. Toviaz 8 mg oral daily. HISTORY OF PRESENT ILLNESS/HOSPITAL COURSE: Mr. Shah is an 86-year-old male with a past medical history significant for BPH, renal cell carcinoma, hypothyroidism, chronic kidney disease stage 3, and glaucoma who presented to the emergency room by EMS with complaints of weakness and fever. The patient had developed a cough approximately 3 days prior to his presentation and then the cough increased. He denied any sputum production. Patient then developed a fever, generalized weakness, muscle and joint pain. He reported having a fever up to 101.7 at home. His called his primary care provider who instructed him to go to the emergency room. Due to his increased level of weakness, she called the EMS who brought him to the emergency room. While in the emergency room, the patient had a temperature of 100.7. He was noted to have profound weakness. He was influenza B positive. He had a chest x-ray showing a right lower lobe infiltrate and the hospitalists were asked to evaluate him for admission. While in the hospital, the patient was treated with Tamiflu on a renally adjusted dose. He received 2 days of this. He remained afebrile with no leukocytosis. His weakness improved after some IV hydration. The patient was placed on azithromycin IV and ceftriaxone IV for his right lower lobe pneumonia. He worked with Physical Therapy and felt better. He was tolerating regular diet. Mr. Shah is stable for discharge to home today. Vital signs are as follows: Temperature 97.8, heart rate 76, respiratory rate 16, O2 sat 98% on room air, blood pressure 127/65. DISCHARGE PLAN: Mr. Shah will be discharged to home. Activity as tolerated. He should be on a regular diet. In regards to his influenza, he will be continued on Tamiflu 30 mg twice daily for 3 more days. This is renally adjusted due to his chronic kidney disease. For his right lower lobe pneumonia , he will be continued on azithromycin 250 mg daily for 5 more days to complete a 7 day course. He will be placed on cefdinir 300 mg oral twice daily for 8 more days to complete a 10 day course of cephalosporin. Patient was noted to be hypertensive during his stay with blood pressures in the 140s to 190s. He was started on amlodipine 5 mg oral daily. He has been encouraged to drink plenty of fluids to stay hydrated. He has a followup appointment with his primary care provider, Dr. Lei, on Friday, May 09 at 9 a.m. He has been asked to return to the emergency room for any chest pain or shortness of breath. He has been asked to call Dr. Lei's office if he develops lightheadedness. POINTS OF FOLLOW UP AT DISCUSSION: Please continue to monitor the patient's blood pressure to make sure that he does not become hypotensive in the setting of his newly added amlodipine. This is a summarized report of a complex medical history and hospital stay. For further details, please see the entire medical record. TIME SPENT: Time for this discharge was approximately 50 minutes, greater than half of that was spent [id number] with the patient and his discussing discharge plans and instructions. CONDITION ON DISCHARGE: Stable. CHACE CHESTER, MARIANNE [id number]/[facility] #: [id number] [facility] CENTERMax
== END 2017-05-06 13:10 | disposition home or self-care (01) | DRG 195 ==
LOC: ED 16:20 → MED 19:20
PROVIDERS: ADMIT Internal Medicine; ATTEND Internal Medicine
DX: J10.08 Influenza due to other identified influenza virus with other specified pneumonia (principal); N18.3 Chronic kidney disease, stage 3 (moderate); E89.0 Postprocedural hypothyroidism; G47.33 Obstructive sleep apnea (adult) (pediatric); N40.0 Benign prostatic hyperplasia without lower urinary tract symptoms; N18.9 Chronic kidney disease, unspecified; H40.9 Unspecified glaucoma; I12.9 Hypertensive chronic kidney disease with stage 1 through stage 4 chronic kidney disease, or unspecified chronic kidney disease; R53.1 Weakness; H91.93 Unspecified hearing loss, bilateral; Z96.653 Presence of artificial knee joint, bilateral; Z82.49 Family history of ischemic heart disease and other diseases of the circulatory system; Z80.3 Family history of malignant neoplasm of breast; Z72.89 Other problems related to lifestyle; Z86.718 Personal history of other venous thrombosis and embolism; Z90.5 Acquired absence of kidney; Z85.528 Personal history of other malignant neoplasm of kidney; Z97.4 Presence of external hearing-aid; Z98.42 Cataract extraction status, left eye; Z98.41 Cataract extraction status, right eye; Z90.49 Acquired absence of other specified parts of digestive tract
CPT/HCPCS: 36415; 71045; 80048; 80053; 81003; 81015; 83605; 84443; 84484; 85025; 85060; 85610; 86140; 87040; 87070; 87205; 87502; 87899; 99285; A9270-GY; J0360; J0456; J0696; J1644; J2405

== ENCOUNTER 2017-07-31 16:56 | Inpatient (IN) | payer MEDICARE, OTHER ==
[2017-07-31 18:05] LABS: Hematocrit 43 % (42-52); Hemoglobin 14.7 g/dl (14.0-18.0); Mean Corpuscular HGB Conc 34 g/dl (31-36); Mean Corpuscular Hemoglobin 30 pg (27-31); Mean Corpuscular Volume 89 fL (80-94); Platelet Count 149 10^3/ul (150-450); Red Blood Count 4.88 10^6/ul (4.0-5.4); Red Cell Distribution Width 14 % (10.5-15); White Blood Count 9.2 10^3/ul (3.5-10.8)
[2017-07-31 18:23] LABS: EGFR Non-African American 46.6 (>60)
--- NOTE | 2017-07-31 18:27 | RAD ---
Indication: Fall, ankle injury. 3 views of the right ankle demonstrates fracture of the medial malleolus and avulsion fracture of the distal fibula. Posterior malleolus appears to be grossly intact. IMPRESSION: Transverse fracture medial malleolus and avulsion fracture of the distal fibula.
--- NOTE | 2017-07-31 18:28 | RAD ---
Indication: Fall, foot injury. 3 views of the right foot demonstrates fracture of the medial and lateral malleolus. The remainder of the foot is unremarkable. The base of the fifth metatarsal is unremarkable. IMPRESSION: Bimalleolar fracture.
[2017-07-31] MEDS ORDERED: Cephalexin CAP* 500 MG PO ONE ×2 (18:32→18:38)
[2017-07-31] MEDS ORDERED: traMADol TAB* 50 MG PO ONE (18:33)
[2017-07-31] MEDS ORDERED: Sulfamethox/Trimethoprim DS 800/160* TAB PO ONE (18:38)
[2017-07-31] MEDS ORDERED: Ondansetron ODT TAB* 4 MG PO ONE (20:22)
[2017-07-31] MEDS ORDERED: Morphine VIAL* 4 MG/ML VIAL (1 ml vial) IV ONE (20:22)
[2017-07-31] MEDS ORDERED: Morphine VIAL* 4 MG/ML VIAL (1 ml vial) IV PRN (22:39)
[2017-08-01] MEDS: NS 0.9% 1000 ML* 1,000 ML IV SCH (01:18)
[2017-08-01] MEDS: oxyCODONE TAB* 5 MG TAB PO PRN ×2 (01:18→20:17)
[2017-08-01] MEDS: Latanoprost 0.005%* 2.5 ml BTL BOTH EYES SCH ×3 (04:18→20:18)
--- NOTE | 2017-08-01 05:25 | HP ---
H&P (Free Text) History and Physical: PCP: Nemo Gray MD Date/Time: 07/31/20170 CC: R ankle FX s/p mechanical fall HPI: Mr Shah is an 86YO male HX renal cell CA s/p R nephrectomy, CKD stg 3a, hypothyroidism, BPH, & glaucoma presents after falling from his lawn tractor 2nd getting his R foot caught. He was unable to stand, but denies significant pain. EMS was called and noted deformity of the R ankle which was confirmed as a bimalleolar FX via XRY upon arrival. He was unable to ambulate afterwards reducing/splinting and family was concerned about taking him home. As such, he will be observed overnight and orthopedics consulted for further management. There was no LOC or head impact. 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 hypothyroidism BPH glaucoma Ambulatory Orders Timolol 0.5% OPTH.TUNG* [Timoptic 0.5% Opth*] 1 drop BOTH EYES QAM 04/09/15 Fesoterodine (NF) [Toviaz (NF)] 8 mg PO DAILY 05/04/17 Latanoprost 0.005%* [Xalatan 0.005%*] 1 drop BOTH EYES QPM 05/04/17 Levothyroxine TAB* [Synthroid TAB*] 200 mcg PO DAILY 05/04/17 Fluticasone NASAL SPRAY 50MCG* [Flonase NASAL SPRAY 50MCG*] 1 spray BOTH NARES DAILY 07/31/17 Lisinopril TAB* [Prinivil TAB*] 5 mg PO DAILY 07/31/17 Allergies No Known Allergies Allergy (Verified 07/31/17 17:27) PSurgHx R nephrectomy TURP B TKA tonsillectomy appendectomy cholecystectomy thyroidectomy SocHx: no tobacco or recreational drugs, rare alcohol; lives with his ; retired; full code status FamHx: positive for CAD, HTN, DM, & breast CA ROS: as above, otherwise reviewed and all were negative vitals: Vital Signs Temp 36.9 C 08/01/17 04:22 Pulse 76 08/01/17 04:22 Resp 16 08/01/17 04:22 BP 160/86 08/01/17 04:30 Pulse Ox 98 08/01/17 04:22 Intake & Output 07/31/17 07/31/17 08/01/17 11:59 23:59 11:59 Output Total 300 Balance -300 Weight 140.704 kg 140.704 kg Output: Urine 300 Constitutional: NAD, normally developed, obese white male HEENM: atraumatic; sclera/conjunctiva: anicteric/clear; hearing: clinically mildly decreased; oropharynx: clear, mucosa moist Neck: soft tissue: non-tender; thyroid: normal Pulmonary: clear to auscultation bilaterally, good aeration, no accessory muscle use CV: RR/RR, normal S1S2, no carotid bruit, no jugular venous distention, 2+ B DP/ PT, no edema Abdominal: soft, non-distended, non-tender, no rebound/guarding/rigidity, normoactive bowel sounds, no hepatosplenomegaly or masses, no costovertebral angle tenderness Musculoskeletal: general: grossly intact, RLE in splint, currently non- ambulatory Integumental: normal appearance and texture of exposed skin Psychiatric orientation: AA&O to PPS affect: calm mood: cooperative eye contact: good content: reliable responses: timely insight: good Testing: Lab Results 07/31/17 07/31/17 08/01/17 Range/Units 17:54 17:54 00:08 WBC 9.2 (3.5-10.8) 10^3/ul RBC 4.88 (4.0-5.4) 10^6/ul Hgb 14.7 (14.0-18.0) g/dl Hct 43 (42-52) % MCV 89 (80-94) fL MCH 30 (27-31) pg MCHC 34 (31-36) g/dl RDW 14 (10.5-15) % Plt Count 149 L (150-450) 10^3/ul MPV 8.0 (7.4-10.4) um3 APTT 35.2 (26.0-36.3) seconds Sodium 141 (139-145) mmol/L Potassium 4.9 (3.5-5.0) mmol/L Chloride 108 (101-111) mmol/L Carbon Dioxide 28 (22-32) mmol/L Anion Gap 5 (2-11) mmol/L BUN 28 H (6-24) mg/dL Creatinine 1.44 H (0.67-1.17) mg/dL Est GFR ( Amer) 60.0 (>60) Est GFR (Non-Af Amer) 46.6 (>60) BUN/Creatinine Ratio 19.4 (8-20) Glucose 116 H (70-100) mg/dL Calcium 9.5 (8.6-10.3) mg/dL Total Bilirubin 0.50 (0.2-1.0) mg/dL AST 13 (13-39) U/L ALT 10 (7-52) U/L Alkaline Phosphatase 40 (34-104) U/L Total Protein 6.6 (6.4-8.9) g/dL Albumin 4.0 (3.2-5.2) g/dL Globulin 2.6 (2-4) g/dL Albumin/Globulin Ratio 1.5 (1-3) R ankle XRY, personally reviewed: IMPRESSION: Transverse fracture medial malleolus and avulsion fracture of the distal fibula. R foot XRY, personally reviewed: IMPRESSION: Bimalleolar fracture. 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
[2017-08-01 05:41] LABS: ABS Basophils 0 10^3/ul (0-0.2); ABS Eosinophils 0.1 10^3/ul (0-0.6); ABS Lymphocytes 1.9 10^3/ul (1.0-4.8); ABS Monocytes 0.6 10^3/ul (0-0.8); ABS Neutrophils 3.5 10^3/ul (1.5-7.7); ABS Nucleated RBC 0 10^3/ul; Eosinophil % 1.8 % (0-6); Hematocrit 40 % (42-52); Hemoglobin 13.9 g/dl (14.0-18.0); Lymphocyte % 31.2 % (25-47); Mean Corpuscular HGB Conc 35 g/dl (31-36); Mean Corpuscular Hemoglobin 31 pg (27-31); Mean Corpuscular Volume 88 fL (80-94); Nucleated Red Blood Cells % 0.1; Platelet Count 126 10^3/ul (150-450); Red Blood Count 4.56 10^6/ul (4.0-5.4); Red Cell Distribution Width 14 % (10.5-15); White Blood Count 6.1 10^3/ul (3.5-10.8)
[2017-08-01 05:48] LABS: INR 1.05 (0.77-1.02)
[2017-08-01] MEDS: Levothyroxine TAB* 100 MCG TAB PO SCH (05:57)
[2017-08-01] MEDS: Omeprazole CAP* 20 MG PO SCH (05:57)
[2017-08-01 05:58] LABS: EGFR Non-African American 51.1 (>60)
[2017-08-01] MEDS: Acetaminophen TAB* 325 MG PO PRN ×2 (05:58→20:17)
[2017-08-01] MEDS ORDERED: Heparin VIAL(*) 5000 UNITS/ML VIAL (FIVE THOUSAND) SUBCUT SCH (06:00)
[2017-08-01] MEDS: Docusate CAP* 100 MG PO SCH ×2 (09:13→20:17)
[2017-08-01] MEDS: Lisinopril TAB* 5 MG PO SCH (09:13)
[2017-08-01] MEDS: Timolol 0.5% OPTH.SOL* BTL BOTH EYES SCH (09:31)
--- NOTE | 2017-08-01 10:37 | RAD ---
INDICATION: Traumatic bimalleolar fracture of the right ankle. COMPARISON: Comparison is made with a prior x-ray study of the right ankle from July 31, 2017. TECHNIQUE: Contiguous axial sections were obtained of the right ankle. Images were reconstructed in the sagittal and coronal planes. FINDINGS: There is diffuse soft tissue swelling present. There is a small avulsion fracture fragment arising from the distal fibula which appears nondisplaced. The fracture fragment measures 1.6 x 0.6 cm in size. In addition, there is a transverse fracture of the medial malleolus which extends to the articular margin. The distal fragment is slightly displaced medially approximately 2 mm. There is mild widening of the medial joint space. There is also a small avulsion fracture fragment extending through the very posterior aspect of the posterior malleolus. The talus and calcaneus appear intact. There appear to be fractures at the bases of the third and fourth metatarsals which are only partially visualized on this exam of the ankle. IMPRESSION: 1. TRANSVERSE SLIGHTLY DISPLACED INTRA-ARTICULAR FRACTURE OF THE MEDIAL MALLEOLUS WITH MILD WIDENING OF THE MEDIAL MORTISE. 2. NONDISPLACED AVULSION FRACTURE FRAGMENT ARISING FROM THE FIBULAR TIP. 3. SMALL NONDISPLACED AVULSION FRACTURE FRAGMENT OF THE POSTERIOR MALLEOLUS. 4. FRACTURES AT THE BASES OF THE FOURTH AND FIFTH METATARSALS WHICH ARE NOT COMPLETELY IMAGED ON THIS STUDY.
[2017-08-01] MEDS ORDERED: Sodium Citrate/Citric Acid* 15 ML UDC ONE (13:16)
[2017-08-01] MEDS ORDERED: Bupivacaine 0.25% SDV* 30 ML ONE (13:36)
[2017-08-01] MEDS ORDERED: ceFAZolin 2 GM PREMIX (*) 2 GM/50 ML BAG IVPB ONE (14:05)
[2017-08-01] MEDS ORDERED: ceFAZolin 1 GM in Dextrose (*) 1 GM/50 ML BAG IVPB ONE (14:05)
[2017-08-01] MEDS ORDERED: fentaNYL* 50 MCG/ML 2 ML VIAL (100 MCG VIAL) ONE (14:21)
[2017-08-01] MEDS ORDERED: EPHEDrine (Pressors)* 50 MG/ML VIAL ONE (14:58)
[2017-08-01] MEDS ORDERED: Propofol* 10 MG/ML 20 ML BTL IV PUSH ONE (15:00)
[2017-08-01] MEDS ORDERED: fentaNYL* 50 MCG/ML 2 ML VIAL (100 MCG VIAL) IV PRN (15:26)
[2017-08-01] MEDS ORDERED: Naloxone* 0.4 MG/ML 1 ML VIAL IV PRN (15:26)
--- NOTE | 2017-08-01 18:54 | PN ---
Subjective Date of Service: 08/01/17 Interval History: Patient seen and examined in recovery, S/P right ankle repair. Patient denies chest pain or shortness of breath. Denies abd pain n/v/d. reports mild right ankle pain, sensation,movement and right toes warm to touch cap refill 3 seconds,. splint intact to right lower leg. Family History: Unchanged from Admission Social History: Unchanged from Admission Past Medical History: Unchanged from Admission Objective Active Medications: Acetaminophen (Tylenol Tab*) 650 mg PO Q6H PRN PRN Reason: FEVER/PAIN Last Admin: 08/01/17 05:58 Dose: 650 mg Docusate Sodium (Colace Cap*) 200 mg PO BID [facility] Last Admin: 08/01/17 09:13 Dose: Not Given Heparin Sodium (Porcine) (Heparin Vial(*)) 5,000 units SUBCUT Q8HR [facility] Sodium Chloride (Ns 0.9% 1000 Ml*) 1,000 mls @ 50 mls/hr IV PER RATE [facility] Last Admin: 08/01/17 01:18 Dose: 50 mls/hr Cefazolin Sodium/Dextrose (Kefzol 1 Gm In Dextrose Duplex (*)) 1 gm in 50 mls @ 200 mls/hr IVPB Q8H [facility] Latanoprost (Xalatan 0.005%*) 1 drop BOTH EYES QPM [facility] Last Admin: 08/01/17 04:18 Dose: Not Given Levothyroxine Sodium (Synthroid Tab*) 200 mcg PO 0600 [facility] Last Admin: 08/01/17 05:57 Dose: 200 mcg Lisinopril (Prinivil Tab*) 5 mg PO DAILY [facility] Last Admin: 08/01/17 09:13 Dose: Not Given Morphine Sulfate (Morphine Vial*) 2 mg IV Q4H PRN PRN Reason: PAIN Last Admin: 08/01/17 10:28 Dose: 2 mg Naloxone HCl (Narcan*) 0.08 mg IV Q2M PRN PRN Reason: severe induced resp depression Stop: 08/02/17 15:25 Omeprazole (Prilosec Cap*) 20 mg PO DAILY@0600 [facility] Last Admin: 08/01/17 05:57 Dose: 20 mg Oxycodone HCl (Roxycodone Tab*) 5 mg PO Q4H PRN PRN Reason: PAIN Last Admin: 08/01/17 01:18 Dose: 5 mg Timolol Maleate (Timoptic 0.5% Opth*) 1 drop BOTH EYES QAM [facility] Last Admin: 08/01/17 09:31 Dose: 1 drp Tramadol HCl (Ultram*) 50 mg PO Q6H PRN PRN Reason: PAIN Vital Signs - 8 hr 08/01/17 08/01/17 08/01/17 15:15 15:20 15:21 Temperature 97.9 F Pulse Rate 76 76 Respiratory 20 18 19 Rate Blood Pressure 154/76 156/77 (mmHg) O2 Sat by Pulse 97 97 Oximetry 08/01/17 08/01/17 08/01/17 15:25 15:26 15:30 Temperature Pulse Rate 76 Respiratory 18 20 18 Rate Blood Pressure 153/76 (mmHg) O2 Sat by Pulse 98 Oximetry 08/01/17 08/01/17 08/01/17 15:31 15:45 15:46 Temperature Pulse Rate 74 71 Respiratory 18 18 15 Rate Blood Pressure 162/90 165/94 (mmHg) O2 Sat by Pulse 99 97 Oximetry 08/01/17 08/01/17 08/01/17 16:00 16:01 16:16 Temperature Pulse Rate 68 73 Respiratory 18 16 19 Rate Blood Pressure 160/93 158/81 (mmHg) O2 Sat by Pulse 97 98 Oximetry 08/01/17 08/01/17 08/01/17 16:31 16:44 17:30 Temperature 97.9 F Pulse Rate 71 77 Respiratory 16 18 18 Rate Blood Pressure 146/72 166/86 (mmHg) O2 Sat by Pulse 97 98 Oximetry Oxygen Devices in Use Now: None Appearance: elderly male appears comfortable sitting on the str. Alert and oriented Eyes: No Scleral Icterus Ears/Nose/Mouth/Throat: Clear Oropharnyx, Mucous Membranes Moist Neck: NL Appearance and Movements; NL JVP, Trachea Midline Respiratory: Symmetrical Chest Expansion and Respiratory Effort, Clear to Auscultation Cardiovascular: NL Sounds; No Murmurs; No JVD, No Edema Abdominal: NL Sounds; No Tenderness; No Distention Extremities: No Edema, No Clubbing, Cyanosis Skin: No Rash or Ulcers, - - splint intact to right lower leg Neurological: Alert and Oriented x 3, NL Muscle Strength and Tone Nutrition: Taking PO's Result Diagrams: 08/01/17 05:07 08/01/17 05:07 Assess/Plan/Problems-Billing Assessment: Mr. Shah is an 86 y.o male with a history of renal cell CA s/p right nephrectomy , CKD, hypothyroid, glaucoma who presented with a right ankle fracture. S/p repair today. - Patient Problems (1) Closed right ankle fracture Current Visit: Yes Status: Acute Code(s): S82.891A - OTH FRACTURE OF RIGHT LOWER LEG, INIT FOR CLOS FX SNOMED Code(s): 76098900 Comment: Pt/OT per orthopedics pain management per orthopedics (2) HTN (hypertension) Current Visit: No Status: Acute Code(s): I10 - ESSENTIAL (PRIMARY) HYPERTENSION SNOMED Code(s): 30286957 Comment: - Currently taking lisinopril 5 mg at home - SBP 141-166 today may need to increase lisinopril to 10 mg (3) History of BPH Current Visit: No Status: Chronic Priority: Medium Code(s): Z87.438 - PERSONAL HISTORY OF OTHER DISEASES OF MALE GENITAL ORGANS SNOMED Code(s): 649195369 Comment: - Continue Toviaz. (4) History of glaucoma Current Visit: No Status: Chronic Priority: Medium Code(s): Z86.69 - PERSONAL HISTORY OF DIS OF THE NERVOUS SYS AND SENSE ORGANS SNOMED Code(s): 010598885 Comment: stable - continue home eye drops (5) History of hypothyroidism Current Visit: No Status: Chronic Priority: Medium Code(s): Z86.39 - PERSONAL HISTORY OF ENDO, NUTRITIONAL AND METABOLIC DISEASE SNOMED Code(s): 724952237 Comment: - Continue levothyroxine 200 mcg (6) DVT prophylaxis Current Visit: No Status: Acute Priority: Medium Onset Date: 03/06/14 Code(s): HTW7357 - SNOMED Code(s): 368490559 (7) Full code status Current Visit: No Status: Acute Priority: Medium Onset Date: 03/06/14 Code(s): Z78.9 - OTHER SPECIFIED HEALTH STATUS SNOMED Code(s): 963389778 Status and Disposition: inpatient - will most likely need STR at discharge.
--- NOTE | 2017-08-01 18:58 | ED ---
Lanie Davis Gabriel, scribed for Steven Daniels MD on 07/31/17 at 1751 . 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 Pt was mowing his lawn earlier and caught his ankle under the mower as he was stepping off it. There was obvious deformity on EMS arrival and they attempted a reduction that appeared successful. The patient rates the pain 1/10 in severity. Patient reports abrasions to the left castro and mild swelling. Patient denies head trauma. Pt has had multiple cellulitis infections and is requesting abx. - History of Current Complaint Chief Complaint: EDExtremityLower Stated Complaint: RT ANKLE INJURY Time Seen by Provider: 07/31/17 17:39 Hx Obtained From: Patient Mechanism Of Injury: Other Onset of Pain: Immediate Onset/Duration: Hours Severity Initially: Mild Severity Currently: Mild Pain Intensity: 1 Pain Scale Used: 0-10 Numeric Timing: Constant Associated Signs And Symptoms: Positive: Swelling - mild - Allergies/Home Medications Allergies/Adverse Reactions: Allergies Allergy/AdvReac Type Severity Reaction Status Date / Time No Known Allergies Allergy Verified 07/31/17 17:27 Home Medications: Home Medications Fluticasone NASAL SPRAY 50MCG* [Flonase NASAL SPRAY 50MCG*] 1 spray BOTH NARES DAILY 07/31/17 [History Confirmed 07/31/17] Lisinopril TAB* [Prinivil TAB*] 5 mg PO DAILY 07/31/17 [History Confirmed ] PMH/Surg Hx/FS Hx/Imm Hx Endocrine/Hematology History: Reports: Hx Thyroid Disease - hypothyroidism Denies: Hx Diabetes Cardiovascular History: Reports: Hx Deep Vein Thrombosis - 2009, Other Cardiovascular Problems/Disorders - chronic lower extremity lymphadema Denies: Hx Hypertension Respiratory History: Reports: Hx Sleep Apnea - pt's own CPAP, Other Respiratory Problems/Disorders - KRISTA Denies: Hx Asthma, Hx Chronic Obstructive Pulmonary Disease (COPD) GI History: Denies: Hx Ulcer History: Reports: Hx Benign Prostatic Hyperplasia - s/p TURP, 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, Other Problems/ Disorders - TURP, R nephrectomy s/p renal cell carcinoma Sensory History: Reports: Hx Contacts or Glasses, Hx Glaucoma, Hx Hearing Aid - Bilat., Hx Hearing Problem Opthamlomology History: Reports: Hx Contacts or Glasses, Hx Glaucoma - Cancer History Cancer Type, Location and Year: Right kidney removed in 1990 - Surgical History Surgery Procedure, Year, and Place: t&a, gall bladder, bilat knee replacement, thyroid nodules removed, bilateral cataract, appendix, right kidney - Immunization History Date of Tetanus Vaccine: not upto date Infectious Disease History: No Infectious Disease History: Denies: Hx Hepatitis, Hx Human Immunodeficiency Virus (HIV), History Other Infectious Disease, Traveled Outside the [place] in Last 30 Days - Family History Known Family History: Negative: Renal Disease, Respiratory Disease, Seizure Disorder - Social History Alcohol Use: None Substance Use Type: Reports: None Smoking Status (MU): Never Smoked Tobacco Review of Systems Constitutional: Negative - head trauma Negative: Fever, Chills Negative: Erythema Negative: Sore Throat Negative: Chest Pain Negative: Shortness Of Breath, Cough Negative: Abdominal Pain, Vomiting, Nausea Negative: dysuria, hematuria Positive: Edema, Other - RLE pain . Negative: Myalgia Positive: Other - abrasion . Negative: Rash Neurological: Negative - dizziness All Other Systems Reviewed And Are Negative: Yes Physical Exam - Summary Physical Exam Summary: Constitutional: Well-developed, Well-nourished, Alert. (-) Distressed Skin: Warm, Dry, multiple abrasion on the left anterior castro HENT: Normocephalic; Atraumatic Eyes: Conjunctiva normal Neck: Musculoskeletal ROM normal neck. (-) JVD, (-) Stridor, (-) Tracheal deviation Cardio: Rhythm regular, rate normal, Heart sounds normal; Intact distal pulses; The pedal pulses are 2+ and symmetric. Radial pulses are 2+ and symmetric. (-) Murmur Pulmonary/Chest wall: Effort normal. (-) Respiratory distress, (-) Wheezes, (-) Rales Abd: Soft, (-) Tenderness, (-) Distension, (-) Guarding, (-) Rebound Musculoskeletal: selling in the right ankle, pulses and movement are intact Lymph: (-) Cervical adenopathy Neuro: Alert, Oriented x3 Psych: Mood and affect Normal Triage Information Reviewed: Yes Vital Signs On Initial Exam: Initial Vitals Temp Pulse Resp BP Pulse Ox 97.5 F 78 20 150/72 99 05/18 17:23 07/31/17 17:23 07/31/17 17:23 07/31/17 17:23 07/31/17 17:23 Vital Signs Reviewed: Yes Procedures - Procedure Summary Procedure Summary: There was a second orthoglass splint applied that was posterior. Nuerovacular intact. Well tolerated. - Splinting Location: RLE Hand-Made Type: orthoglass Splint: sugar-tong Pre-Proc Neuro Vasc Exam: normal Post-Proc Neuro Vasc Exam: normal Diagnostics - Vital Signs Vital Signs Temp Pulse Resp BP Pulse Ox 07/31/17 17:23 97.5 F 78 20 150/72 99 - Laboratory Result Diagrams: 07/31/17 17:54 07/31/17 17:54 Lab Statement: Any lab studies that have been ordered have been reviewed, and results considered in the medical decision making process. - Radiology foot xray Radiology Interpretation Completed By: Radiologist - Bimalleolar fracture. ED physician has reviewed this radiology report. ankle Xray Radiology Interpretation Completed By: Radiologist - Transverse fracture medial malleolus and avulsion fracture of the distal fibula. ED physician has reviewed this radiology report. 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 Pt was mowing his lawn earlier and caught his ankle under the mower as he was stepping off it. There was obvious deformity on EMS arrival and they attempted a reduction that appeared successful. The patient rates the pain 1/10 in severity. Patient reports abrasions to the left castro and mild swelling. Patient denies head trauma. Pt has had multiple cellulitis infections and is requesting abx. Foot XR reveals, per radiologist, Bimalleolar fracture. Ankle XR reveals, per radiologist, Transverse fracture medial malleolus and avulsion fracture of the distal. fibula. We discussed patient care with Dr. Kelley and she accepts the patient for admission. The patient is agreeable with this plan. - Diagnoses Provider Diagnoses: Bimalleolar ankle fracture, Puncture wound of leg not thigh - Physician Notifications Discussed Care Of Patient With: Edwin Alcocer Time Discussed With Above Provider: 19:08 Instructed by Provider To: Admit As Inpatient Discharge - Sign-Out/Discharge Documenting (check all that apply): Discharge/Admit/Transfer - admitted - Discharge Plan Condition: Fair Disposition: ADMITTED TO [facility] Referrals: Yandy Sanford MD [Medical Doctor] - The documentation as recorded by the Lanie strong Gabriel accurately reflects the service I personally performed and the decisions made by , Steven Daniels MD.
--- NOTE | 2017-08-01 19:02 | RAD ---
INDICATION: Right knee pain. Fall. COMPARISON: None TECHNIQUE: AP and lateral views were obtained. FINDINGS: There is right knee arthroplasty. The prosthesis appears normally seated. There are soft tissue calcifications. No additional findings. IMPRESSION: THE RIGHT KNEE PROSTHESIS APPEARS NORMALLY SEATED. THERE ARE NO ACUTE FINDINGS
--- NOTE | 2017-08-01 20:29 | CONS ---
CONSULTATION REPORT: DATE OF CONSULT: 08/01/17 ATTENDING PHYSICIAN: Dr. Sanderson. REASON FOR CONSULTATION: Right ankle bimalleolar fracture. CHIEF COMPLAINT: Mr. Shah is a very pleasant 86-year-old gentleman who fell out of his riding subassembler on 07/31/17 and suffered a twisting injury to his right foot after it got caught. He was unable to stand, but denied increased pain. EMS was called, and a right ankle deformity was noted which was reduced on site. The patient was taken to [facility] Emergency Room where foot and ankle x-rays were obtained, which showed a bimalleolar fracture. Splint was applied. The patient was unable to ambulate and was admitted for observation last night with the possibility of undergoing an ORIF this morning. PAST MEDICAL HISTORY: 1. Renal cell carcinoma, status post right nephrectomy. 2. Chronic kidney disease, stage 3A. 3. Hypothyroidism. 4. BPH. 5. Glaucoma. PAST SURGICAL HISTORY: 1. Right nephrectomy. 2. TURP. 3. Bilateral total knee arthroplasties. 4. Tonsillectomy. 5. Appendectomy. 6. Cholecystectomy. 7. Partial thyroidectomy. MEDICATIONS: 1. Timolol 0.5% ophthalmic solution 1 drop both eyes q.a.m. 2. Toviaz 8 mg p.o. daily. 3. Xalatan 0.005% 1 drop both eyes q.p.m. 4. Synthroid 200 mcg p.o. daily. 5. Flonase nasal spray 1 spray bilateral nares. 6. Lisinopril 5 mg p.o. daily. ALLERGIES: No known drug allergies. SOCIAL HISTORY: The patient denies tobacco or recreational use. Rare alcohol use. Currently lives with his on one floor of his home. Retired. FAMILY MEDICAL HISTORY: Positive for CAD, hypertension, diabetes, and breast cancer. REVIEW OF SYSTEMS: The patient denies lightheadedness, dizziness, chest pain, fever, chills, nausea, vomiting, constipation, diarrhea, blood in his stool, blood in his urine, urinary tract infections, history of epilepsy, DVT, asthma. Positive for left knee pain. PHYSICAL EXAM: Vital Signs: Temperature 98.4, pulse 76, respirations 16, oxygen saturation 98% on room air, blood pressure 163/74. General: Well appearing, in no acute distress. Alert and oriented, appears slightly older than stated age. HEENT: Normocephalic, atraumatic. Musculoskeletal: Left lower extremity with mild nonpitting edema. Superficial abrasion to distal left castro. Negative Homans sign. Full range of motion of left ankle. Nontender to palpation of her left knee. Right lower extremity in a posterior and used splint. The patient has sensation over toes, although is unable to accurately state which toe is being touched. Minimal dorsiflexion, plantar flexion able to be performed due to splint; however, the patient states this is nontender. No induration or erythema noted above the splint. Tenderness to the medial collateral ligament and medial joint line on the left main, nontender over lateral aspect of the tibial plateau. Negative patellar grind. Negative patellar apprehension. Range of motion 0 to 105 degrees without difficulty. No swelling or edema noted. LABORATORY DATA: H and H of 13.9 and 40 with an INR of 0.15. Creatinine improved overnight from 1.44 to today's value of 1.33. Platelets low at 126,000 , down from 149,000 from last night. RADIOGRAPHS: CT recently obtained of the right lower extremity, awaiting final read. Foot and ankle x-rays obtained 07/31/17 show a bimalleolar fracture. IMPRESSION: An 86-year-old gentleman, status post mechanical fall resulting in right bimalleolar fracture. PLAN: 1. Hold anticoagulation and continue to keep the patient n.p.o. for possible OR this afternoon. 2. Continue to wear splint. 3. Hospitalists managing other medical comorbidities. 4. Nonweightbearing. 5. Surgery was discussed with the patient briefly. However, the patient will meet with either Dr. Landis or Dr. Sanderson to review exact surgical plan after CT has been reviewed. ANAND HOWE [id number]/[facility] #: [id number] NIKITA
[2017-08-01] MEDS: Heparin VIAL(*) 5000 UNITS/ML VIAL (FIVE THOUSAND) SUBCUT SCH (23:03)
[2017-08-01] MEDS: ceFAZolin 1 GM in Dextrose (*) 1 GM/50 ML BAG IVPB SCH (23:24)
[2017-08-02] MEDS: Levothyroxine TAB* 100 MCG TAB PO SCH (04:57)
[2017-08-02] MEDS: Acetaminophen TAB* 325 MG PO PRN (04:57)
[2017-08-02] MEDS: Omeprazole CAP* 20 MG PO SCH (04:57)
[2017-08-02] MEDS: NS 0.9% 1000 ML* 1,000 ML IV SCH (04:59)
--- NOTE | 2017-08-02 05:01 | OP ---
OPERATIVE REPORT: DATE OF OPERATION: 08/01/17 DATE OF : 32 SURGEON: Mitchell Sanderson MD PUMP ATTENDANT: Delaney Hameed PA-C PRE-OP DIAGNOSIS: Right medial malleolus fracture displacement. POST-OP DIAGNOSIS: Right medial malleolus fracture displacement. OPERATIVE PROCEDURE: Internal fixation right medial malleolus. DESCRIPTION OF PROCEDURE: The patient was taken to the operating room where a thigh tourniquet was i nflated and we made a longitudinal incision over the medial malleolus. The fracture was essentially at the axilla and displaced medially and posteriorly. We re-reduced this after irrigating the joint and pinned this temporarily. Paired 40-mm cancellous screws were placed across the fracture site wit h washers and then a small one-third tubular spring plate was attached with cortical screws. X-ray i ntraoperatively showed good satisfactory position of the hardware and the fracture. We then irrigate d thoroughly closing with 2-0 Vicryl, gabe for the skin, and a compression dressing plaster splint applied. [id number]/[facility] #: [id number]
[2017-08-02] MEDS: ceFAZolin 1 GM in Dextrose (*) 1 GM/50 ML BAG IVPB SCH ×3 (06:40→22:27)
[2017-08-02] MEDS: Heparin VIAL(*) 5000 UNITS/ML VIAL (FIVE THOUSAND) SUBCUT SCH ×3 (06:40→21:46)
[2017-08-02] MEDS: Timolol 0.5% OPTH.SOL* BTL BOTH EYES SCH (08:31)
[2017-08-02] MEDS: Lisinopril TAB* 5 MG PO SCH (08:32)
[2017-08-02] MEDS: Docusate CAP* 100 MG PO SCH ×2 (08:32→21:46)
[2017-08-02] MEDS: traMADol TAB* 50 MG PO PRN ×2 (08:33→14:46)
[2017-08-02] MEDS: oxyCODONE TAB* 5 MG TAB PO PRN ×3 (10:39→22:23)
[2017-08-02] MEDS: FESOTERODINE 8 MG PO SCH (10:40)
--- NOTE | 2017-08-02 15:06 | PN ---
Subjective Date of Service: 08/02/17 Interval History: c/o mild pain to right ankle, denies chest pain or shortness of breath. Denies abd pain n/v/d. denies fever or chills Family History: Unchanged from Admission Social History: Unchanged from Admission Past Medical History: Unchanged from Admission Objective Active Medications: Acetaminophen (Tylenol Tab*) 650 mg PO Q6H PRN PRN Reason: FEVER/PAIN Last Admin: 08/02/17 04:57 Dose: 650 mg Docusate Sodium (Colace Cap*) 200 mg PO BID [facility] Last Admin: 08/02/17 08:32 Dose: Not Given Heparin Sodium (Porcine) (Heparin Vial(*)) 5,000 units SUBCUT Q8HR [facility] Last Admin: 08/02/17 13:45 Dose: 5,000 units Cefazolin Sodium/Dextrose (Kefzol 1 Gm In Dextrose Duplex (*)) 1 gm in 50 mls @ 200 mls/hr IVPB Q8H [facility] Last Admin: 08/02/17 14:46 Dose: 200 mls/hr Latanoprost (Xalatan 0.005%*) 1 drop BOTH EYES QPM [facility] Last Admin: 08/01/17 20:18 Dose: 1 drop Levothyroxine Sodium (Synthroid Tab*) 200 mcg PO 0600 [facility] Last Admin: 08/02/17 04:57 Dose: 200 mcg Lisinopril (Prinivil Tab*) 5 mg PO DAILY [facility] Last Admin: 08/02/17 08:32 Dose: 5 mg Morphine Sulfate (Morphine Vial*) 2 mg IV Q4H PRN PRN Reason: PAIN Last Admin: 08/01/17 10:28 Dose: 2 mg Naloxone HCl (Narcan*) 0.08 mg IV Q2M PRN PRN Reason: severe induced resp depression Stop: 08/02/17 15:25 Non-Formulary Medication (Fesoterodine (Nf) [Toviaz (Nf)]) 8 mg PO DAILY [facility] Last Admin: 08/02/17 10:40 Dose: Not Given Omeprazole (Prilosec Cap*) 20 mg PO DAILY@0600 [facility] Last Admin: 08/02/17 04:57 Dose: 20 mg Oxycodone HCl (Roxycodone Tab*) 5 mg PO Q4H PRN PRN Reason: PAIN Last Admin: 08/02/17 10:39 Dose: 5 mg Timolol Maleate (Timoptic 0.5% Opth*) 1 drop BOTH EYES [facility]AM [facility] Last Admin: 08/02/17 08:31 Dose: 1 drp Tramadol HCl (Ultram*) 50 mg PO Q6H PRN PRN Reason: PAIN Last Admin: 08/02/17 14:46 Dose: 50 mg Vital Signs - 8 hr 08/02/17 08/02/17 08/02/17 08:00 08:26 08:33 Temperature 99.1 F Pulse Rate 76 Respiratory 18 18 20 Rate Blood Pressure 140/59 (mmHg) O2 Sat by Pulse 96 Oximetry 08/02/17 08/02/17 08/02/17 10:39 10:48 11:56 Temperature 98.8 F Pulse Rate 78 Respiratory 16 18 20 Rate Blood Pressure 178/90 (mmHg) O2 Sat by Pulse 99 Oximetry 08/02/17 08/02/17 13:05 14:46 Temperature Pulse Rate Respiratory 18 18 Rate Blood Pressure (mmHg) O2 Sat by Pulse Oximetry Oxygen Devices in Use Now: None, CPAP Appearance: appears comfortable resting in bed, no acute distress, alert and oriented x 3 Eyes: No Scleral Icterus Ears/Nose/Mouth/Throat: Clear Oropharnyx, Mucous Membranes Moist Neck: NL Appearance and Movements; NL JVP, Trachea Midline Respiratory: Symmetrical Chest Expansion and Respiratory Effort, Clear to Auscultation Cardiovascular: NL Sounds; No Murmurs; No JVD, No Edema Abdominal: NL Sounds; No Tenderness; No Distention Extremities: No Clubbing, Cyanosis, - - right toes warm to the touch , sensation intact Skin: - - abrasion to left leg, splint intact to right lower leg. Neurological: Alert and Oriented x 3, NL Muscle Strength and Tone Nutrition: Taking PO's Result Diagrams: 08/01/17 05:07 08/01/17 05:07 Assess/Plan/Problems-Billing Assessment: Mr. Shah is an 86 y.o male with a history of renal cell CA s/p right nephrectomy , CKD, hypothyroid, glaucoma who presented with a right ankle fracture. S/p repair today. - Patient Problems (1) Closed right ankle fracture Current Visit: Yes Status: Acute Code(s): S82.891A - OTH FRACTURE OF RIGHT LOWER LEG, INIT FOR CLOS FX SNOMED Code(s): 64404151 Comment: Pt/OT per orthopedics pain management per orthopedics (2) Abrasion Current Visit: Yes Status: Acute Code(s): T14.8XXA - OTHER INJURY OF UNSPECIFIED BODY REGION, INITIAL ENCOUNTER SNOMED Code(s): 724214459 Comment: dressing changes daily to left will contiue to monitor for signs of infection (3) HTN (hypertension) Current Visit: No Status: Acute Code(s): I10 - ESSENTIAL (PRIMARY) HYPERTENSION SNOMED Code(s): 10339866 Comment: - Currently taking lisinopril 5 mg at home - SBP 140-178 will increase lisinopril to 10 mg (4) History of BPH Current Visit: No Status: Chronic Priority: Medium Code(s): Z87.438 - PERSONAL HISTORY OF OTHER DISEASES OF MALE GENITAL ORGANS SNOMED Code(s): 757848876 Comment: - Continue Toviaz. (5) History of glaucoma Current Visit: No Status: Chronic Priority: Medium Code(s): Z86.69 - PERSONAL HISTORY OF DIS OF THE NERVOUS SYS AND SENSE ORGANS SNOMED Code(s): 665523983 Comment: stable - continue home eye drops (6) History of hypothyroidism Current Visit: No Status: Chronic Priority: Medium Code(s): Z86.39 - PERSONAL HISTORY OF ENDO, NUTRITIONAL AND METABOLIC DISEASE SNOMED Code(s): 539086539 Comment: - Continue levothyroxine 200 mcg (7) DVT prophylaxis Current Visit: No Status: Acute Priority: Medium Onset Date: 03/06/14 Code(s): XIN6163 - SNOMED Code(s): 524496549 (8) Full code status Current Visit: No Status: Acute Priority: Medium Onset Date: 03/06/14 Code(s): Z78.9 - OTHER SPECIFIED HEALTH STATUS SNOMED Code(s): 424816477 Status and Disposition: inpatient - will most likely need STR at discharge.
[2017-08-02] MEDS: Latanoprost 0.005%* 2.5 ml BTL BOTH EYES SCH (21:43)
[2017-08-03 05:44] LABS: ABS Basophils 0 10^3/ul (0-0.2); ABS Eosinophils 0.1 10^3/ul (0-0.6); ABS Lymphocytes 1.9 10^3/ul (1.0-4.8); ABS Monocytes 0.6 10^3/ul (0-0.8); ABS Neutrophils 3.6 10^3/ul (1.5-7.7); ABS Nucleated RBC 0 10^3/ul; Eosinophil % 2.2 % (0-6); Hematocrit 37 % (42-52); Hemoglobin 12.9 g/dl (14.0-18.0); Lymphocyte % 30.7 % (25-47); Mean Corpuscular HGB Conc 35 g/dl (31-36); Mean Corpuscular Hemoglobin 31 pg (27-31); Mean Corpuscular Volume 88 fL (80-94); Mean Platelet Volume 8.1 um3 (7.4-10.4); Nucleated Red Blood Cells % 0; Platelet Count 124 10^3/ul (150-450); Red Cell Distribution Width 14 % (10.5-15); White Blood Count 6.3 10^3/ul (3.5-10.8)
[2017-08-03] MEDS: Heparin VIAL(*) 5000 UNITS/ML VIAL (FIVE THOUSAND) SUBCUT SCH ×3 (05:54→21:56)
[2017-08-03] MEDS: Omeprazole CAP* 20 MG PO SCH (05:54)
[2017-08-03] MEDS: Levothyroxine TAB* 100 MCG TAB PO SCH (05:54)
[2017-08-03] MEDS: oxyCODONE TAB* 5 MG TAB PO PRN ×2 (05:54→13:51)
[2017-08-03] MEDS: ceFAZolin 1 GM in Dextrose (*) 1 GM/50 ML BAG IVPB SCH ×3 (05:55→21:57)
[2017-08-03] MEDS: Lisinopril TAB* 10 MG PO SCH (09:10)
[2017-08-03] MEDS: Docusate CAP* 100 MG PO SCH ×2 (09:10→19:28)
[2017-08-03] MEDS: FESOTERODINE 8 MG PO SCH ×2 (09:10→10:29)
[2017-08-03] MEDS: Timolol 0.5% OPTH.SOL* BTL BOTH EYES SCH (09:10)
[2017-08-03] MEDS: traMADol TAB* 50 MG PO PRN ×2 (09:45→17:59)
--- NOTE | 2017-08-03 13:31 | PN ---
Progress Note - Progress Note Date of Service: 08/03/17 SOAP: Subjective: Pt is doing well. Pain controlled. Denies F/C, CP, SOB, N/T or calf pain. VSS overnight Objective: PE: 86 y/o WDWN M NAD, A&Ox3, lying comfortably in bed RLE- splint c/d/i, +F/E knee and toes, NVI Vital Signs Temp Pulse Resp BP Pulse Ox 97.7 F 73 16 126/48 99 08/03/17 11:08 08/03/17 11:08 08/03/17 12:23 08/03/17 11:08 08/03/17 11:08 Laboratory Results - last 24 hr 08/03/17 05:09 WBC 6.3 RBC 4.20 Hgb 12.9 L Hct 37 L MCV 88 MCH 31 MCHC 35 RDW 14 Plt Count 124 L MPV 8.1 Neut % (Auto) 57.3 Lymph % (Auto) 30.7 [place] % (Auto) 9.6 H Eos % (Auto) 2.2 Baso % (Auto) 0.2 Absolute Neuts (auto) 3.6 Absolute Lymphs (auto) 1.9 Absolute Monos (auto) 0.6 Absolute Eos (auto) 0.1 Absolute Basos (auto) 0 Absolute Nucleated RBC 0 Nucleated RBC % 0 Assessment: S/P right ankle ORIF medial malleolus fracture with Dr. Sanderson 08/01 Plan: NWB RLE- ok to use knee scooter keep splint clean dry and intact until post op visit Cont PT/OT F/U Dr Sanderson 14 days post op DC per hospitalist, will likely need GREG
[2017-08-03] MEDS: Acetaminophen TAB* 325 MG PO PRN (13:51)
[2017-08-03] MEDS: Latanoprost 0.005%* 2.5 ml BTL BOTH EYES SCH (17:59)
--- NOTE | 2017-08-03 18:19 | PN ---
Subjective Date of Service: 08/03/17 Interval History: c/o coccyx pain for lying in bed, encouraged to reposition, Denies chest pain or shortness of breath. denies abd pain n/v/d, no c/o right ankle pain, Family History: Unchanged from Admission Social History: Unchanged from Admission Past Medical History: Unchanged from Admission Objective Active Medications: Acetaminophen (Tylenol Tab*) 650 mg PO Q6H PRN PRN Reason: FEVER/PAIN Last Admin: 08/03/17 13:51 Dose: 650 mg Docusate Sodium (Colace Cap*) 200 mg PO BID [facility] Last Admin: 08/03/17 09:10 Dose: 200 mg Fesoterodine Fumarate (Toviaz (Nf)) 8 mg PO DAILY [facility] Last Admin: 08/03/17 09:10 Dose: 8 mg Heparin Sodium (Porcine) (Heparin Vial(*)) 5,000 units SUBCUT Q8HR [facility] Last Admin: 08/03/17 13:52 Dose: 5,000 units Cefazolin Sodium/Dextrose (Kefzol 1 Gm In Dextrose Duplex (*)) 1 gm in 50 mls @ 200 mls/hr IVPB Q8H [facility] Last Admin: 08/03/17 13:52 Dose: 200 mls/hr Latanoprost (Xalatan 0.005%*) 1 drop BOTH EYES QPM [facility] Last Admin: 08/03/17 17:59 Dose: 1 drop Levothyroxine Sodium (Synthroid Tab*) 200 mcg PO 0600 [facility] Last Admin: 08/03/17 05:54 Dose: 200 mcg Lisinopril (Prinivil Tab*) 10 mg PO DAILY [facility] Last Admin: 08/03/17 09:10 Dose: 10 mg Morphine Sulfate (Morphine Vial*) 2 mg IV Q4H PRN PRN Reason: PAIN Last Admin: 08/01/17 10:28 Dose: 2 mg Omeprazole (Prilosec Cap*) 20 mg PO DAILY@0600 [facility] Last Admin: 08/03/17 05:54 Dose: 20 mg Oxycodone HCl (Roxycodone Tab*) 5 mg PO Q4H PRN PRN Reason: PAIN Last Admin: 08/03/17 13:51 Dose: 5 mg Timolol Maleate (Timoptic 0.5% Opth*) 1 drop BOTH EYES QAM [facility] Last Admin: 08/03/17 09:10 Dose: 2 drp Tramadol HCl (Ultram*) 50 mg PO Q6H PRN PRN Reason: PAIN Last Admin: 08/03/17 17:59 Dose: 50 mg Vital Signs - 8 hr 08/03/17 08/03/17 08/03/17 10:22 11:08 12:23 Temperature 97.7 F Pulse Rate 73 Respiratory 16 16 16 Rate Blood Pressure 126/48 (mmHg) O2 Sat by Pulse 99 Oximetry 08/03/17 08/03/17 13:51 17:59 Temperature Pulse Rate Respiratory 16 20 Rate Blood Pressure (mmHg) O2 Sat by Pulse Oximetry Oxygen Devices in Use Now: None Appearance: appears comfortable resting in bed, alert Eyes: No Scleral Icterus Ears/Nose/Mouth/Throat: Clear Oropharnyx, Mucous Membranes Moist Neck: NL Appearance and Movements; NL JVP, Trachea Midline Respiratory: Symmetrical Chest Expansion and Respiratory Effort, Clear to Auscultation Cardiovascular: NL Sounds; No Murmurs; No JVD, No Edema Abdominal: NL Sounds; No Tenderness; No Distention Extremities: No Edema, No Clubbing, Cyanosis Skin: - - dressing intact to right ankle Neurological: Alert and Oriented x 3 Nutrition: Taking PO's Result Diagrams: 08/03/17 05:09 08/01/17 05:07 Assess/Plan/Problems-Billing Assessment: Mr. Shah is an 86 y.o male with a history of renal cell CA s/p right nephrectomy , CKD, hypothyroid, glaucoma who presented with a right ankle fracture. S/p repair today. - Patient Problems (1) Closed right ankle fracture Current Visit: Yes Status: Acute Code(s): S82.891A - OTH FRACTURE OF RIGHT LOWER LEG, INIT FOR CLOS FX SNOMED Code(s): 07143623 Comment: Pt/OT per orthopedics pain management per orthopedics (2) Abrasion Current Visit: Yes Status: Acute Code(s): T14.8XXA - OTHER INJURY OF UNSPECIFIED BODY REGION, INITIAL ENCOUNTER SNOMED Code(s): 685255801 Comment: dressing changes daily to left will continue to monitor for signs of infection- no sign of infection today (3) HTN (hypertension) Current Visit: No Status: Acute Code(s): I10 - ESSENTIAL (PRIMARY) HYPERTENSION SNOMED Code(s): 35702208 Comment: - Currently taking lisinopril 10 mg - SBP 126-148 - improved (4) History of BPH Current Visit: No Status: Chronic Priority: Medium Code(s): Z87.438 - PERSONAL HISTORY OF OTHER DISEASES OF MALE GENITAL ORGANS SNOMED Code(s): 769858292 Comment: - Continue Toviaz. (5) History of glaucoma Current Visit: No Status: Chronic Priority: Medium Code(s): Z86.69 - PERSONAL HISTORY OF DIS OF THE NERVOUS SYS AND SENSE ORGANS SNOMED Code(s): 214667514 Comment: stable - continue home eye drops (6) History of hypothyroidism Current Visit: No Status: Chronic Priority: Medium Code(s): Z86.39 - PERSONAL HISTORY OF ENDO, NUTRITIONAL AND METABOLIC DISEASE SNOMED Code(s): 841814674 Comment: - Continue levothyroxine 200 mcg (7) DVT prophylaxis Current Visit: No Status: Acute Priority: Medium Onset Date: 03/06/14 Code(s): TRR6911 - SNOMED Code(s): 891973809 (8) Full code status Current Visit: No Status: Acute Priority: Medium Onset Date: 03/06/14 Code(s): Z78.9 - OTHER SPECIFIED HEALTH STATUS SNOMED Code(s): 564971395 Status and Disposition: inpatient - will most likely need STR at discharge.
[2017-08-04] MEDS: traMADol TAB* 50 MG PO PRN ×2 (05:26→15:20)
[2017-08-04] MEDS: Omeprazole CAP* 20 MG PO SCH (05:26)
[2017-08-04] MEDS: Levothyroxine TAB* 100 MCG TAB PO SCH (05:26)
[2017-08-04] MEDS: Heparin VIAL(*) 5000 UNITS/ML VIAL (FIVE THOUSAND) SUBCUT SCH ×4 (05:28→22:48)
[2017-08-04] MEDS: ceFAZolin 1 GM in Dextrose (*) 1 GM/50 ML BAG IVPB SCH (06:09)
[2017-08-04] MEDS: Lisinopril TAB* 10 MG PO SCH (08:25)
[2017-08-04] MEDS: Docusate CAP* 100 MG PO SCH ×2 (08:25→20:40)
[2017-08-04] MEDS: FESOTERODINE 8 MG PO SCH (08:25)
[2017-08-04] MEDS: Timolol 0.5% OPTH.SOL* BTL BOTH EYES SCH (08:26)
--- NOTE | 2017-08-04 09:24 | PN ---
Progress Note - Progress Note Date of Service: 08/04/17 SOAP: Subjective: 86 y/o male s/p internal fixation of R medial mal by Dr. Dixon 08/01. VSS afebrile. Patient without pain since incident. FEeling well, working with PT however difficulty with remaining non-weight bearing. Objective: General- Well appearing, NAD AO resting in bed comfortably MSK- splint intact over R foot, no drainage, odor noted, sensation intact to great toe, no erythem induration, no induration erythema above splint. Assessment: Stable 86 y/o male s/p internal fixation of R medial mal by Dr. Dixon 08/01. VSS afebrile. Plan: - PMRU consult placed, awaiting placement to rehab - DVT prophylaxis- Heparin - Continue current pain meds - Conitnue PT/ OT - Renal functino remains stable - H&H stable Vital Signs Temp 98.0 F 08/04/17 12:15 Pulse 71 08/04/17 12:15 Resp 16 08/04/17 12:15 BP 121/53 08/04/17 12:15 Pulse Ox 96 08/04/17 12:15 Intake & Output 08/03/17 08/04/17 08/04/17 18:59 06:59 18:59 Intake Total 1030 710 Output Total 750 1100 400 Balance 280 -390 -400 Intake: IVPB 50 ABX - CEFAZOLIN 50 Oral 1030 660 Output: Urine 750 1100 400 Other: Estimated Void Small # Bowel Movements 0 # Voids 1 Acetaminophen (Tylenol Tab*) 650 mg PO Q6H PRN PRN Reason: FEVER/PAIN Last Admin: 08/03/17 13:51 Dose: 650 mg Bacitracin (Bacitracin Ointment*) 1 applic TOPICAL BID [facility] Docusate Sodium (Colace Cap*) 200 mg PO BID [facility] Last Admin: 08/04/17 08:25 Dose: 200 mg Fesoterodine Fumarate (Toviaz (Nf)) 8 mg PO DAILY [facility] Last Admin: 08/04/17 08:25 Dose: 8 mg Heparin Sodium (Porcine) (Heparin Vial(*)) 5,000 units SUBCUT Q8HR [facility] Last Admin: 08/04/17 05:28 Dose: 5,000 units Latanoprost (Xalatan 0.005%*) 1 drop BOTH EYES QPM [facility] Last Admin: 08/03/17 17:59 Dose: 1 drop Levothyroxine Sodium (Synthroid Tab*) 200 mcg PO 0600 [facility] Last Admin: 08/04/17 05:26 Dose: 200 mcg Lisinopril (Prinivil Tab*) 10 mg PO DAILY [facility] Last Admin: 08/04/17 08:25 Dose: 10 mg Morphine Sulfate (Morphine Vial*) 2 mg IV Q4H PRN PRN Reason: PAIN Last Admin: 08/01/17 10:28 Dose: 2 mg Omeprazole (Prilosec Cap*) 20 mg PO DAILY@0600 [facility] Last Admin: 08/04/17 05:26 Dose: 20 mg Oxycodone HCl (Roxycodone Tab*) 5 mg PO Q4H PRN PRN Reason: PAIN Last Admin: 08/03/17 13:51 Dose: 5 mg Timolol Maleate (Timoptic 0.5% Opth*) 1 drop BOTH EYES QAM [facility] Last Admin: 08/04/17 08:26 Dose: 2 drp Tramadol HCl (Ultram*) 50 mg PO Q6H PRN PRN Reason: PAIN Last Admin: 08/04/17 05:26 Dose: 50 mg
--- NOTE | 2017-08-04 14:55 | PN ---
Subjective Date of Service: 08/04/17 Interval History: NO complaints of pain. Denies calf pain. Denies chest pain or shortness of breath. Denies abd pain n/v/d. Family History: Unchanged from Admission Social History: Unchanged from Admission Past Medical History: Unchanged from Admission Objective Active Medications: Acetaminophen (Tylenol Tab*) 650 mg PO Q6H PRN PRN Reason: FEVER/PAIN Last Admin: 08/03/17 13:51 Dose: 650 mg Bacitracin (Bacitracin Ointment*) 1 applic TOPICAL BID [facility] Docusate Sodium (Colace Cap*) 200 mg PO BID [facility] Last Admin: 08/04/17 08:25 Dose: 200 mg Fesoterodine Fumarate (Toviaz (Nf)) 8 mg PO DAILY [facility] Last Admin: 08/04/17 08:25 Dose: 8 mg Heparin Sodium (Porcine) (Heparin Vial(*)) 5,000 units SUBCUT Q8HR [facility] Last Admin: 08/04/17 05:28 Dose: 5,000 units Latanoprost (Xalatan 0.005%*) 1 drop BOTH EYES QPM [facility] Last Admin: 08/03/17 17:59 Dose: 1 drop Levothyroxine Sodium (Synthroid Tab*) 200 mcg PO 0600 [facility] Last Admin: 08/04/17 05:26 Dose: 200 mcg Lisinopril (Prinivil Tab*) 10 mg PO DAILY [facility] Last Admin: 08/04/17 08:25 Dose: 10 mg Morphine Sulfate (Morphine Vial*) 2 mg IV Q4H PRN PRN Reason: PAIN Last Admin: 08/01/17 10:28 Dose: 2 mg Omeprazole (Prilosec Cap*) 20 mg PO DAILY@0600 [facility] Last Admin: 08/04/17 05:26 Dose: 20 mg Oxycodone HCl (Roxycodone Tab*) 5 mg PO Q4H PRN PRN Reason: PAIN Last Admin: 08/03/17 13:51 Dose: 5 mg Timolol Maleate (Timoptic 0.5% Opth*) 1 drop BOTH EYES QAM [facility] Last Admin: 08/04/17 08:26 Dose: 2 drp Tramadol HCl (Ultram*) 50 mg PO Q6H PRN PRN Reason: PAIN Last Admin: 08/04/17 05:26 Dose: 50 mg Vital Signs - 8 hr 08/04/17 08/04/17 08/04/17 07:25 07:30 07:52 Temperature 98.0 F Pulse Rate 69 Respiratory 20 18 16 Rate Blood Pressure 144/53 (mmHg) O2 Sat by Pulse 94 Oximetry 08/04/17 08/04/17 09:10 12:15 Temperature 98.0 F Pulse Rate 71 Respiratory 16 Rate Blood Pressure 121/53 (mmHg) O2 Sat by Pulse 94 96 Oximetry Oxygen Devices in Use Now: None Appearance: elderly obese pain, sitting in the w/c, alert appears comfortable. Eyes: No Scleral Icterus Ears/Nose/Mouth/Throat: Clear Oropharnyx, Mucous Membranes Moist Neck: NL Appearance and Movements; NL JVP, Trachea Midline Respiratory: Symmetrical Chest Expansion and Respiratory Effort, Clear to Auscultation Cardiovascular: NL Sounds; No Murmurs; No JVD, No Edema Abdominal: NL Sounds; No Tenderness; No Distention Extremities: No Edema, No Clubbing, Cyanosis, - - rightlower leg splint intact Skin: - - left lower leg with 2 abrasion and open area, no redness or swelling , surrounding tissue without redness. Neurological: Alert and Oriented x 3 Nutrition: Taking PO's Result Diagrams: 08/03/17 05:09 08/01/17 05:07 Assess/Plan/Problems-Billing Assessment: Mr. Shah is an 86 y.o male with a history of renal cell CA s/p right nephrectomy , CKD, hypothyroid, glaucoma who presented with a right ankle fracture. S/p repair today. 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 (3) HTN (hypertension) Current Visit: No Status: Acute Code(s): I10 - ESSENTIAL (PRIMARY) HYPERTENSION SNOMED Code(s): 66283452 Comment: - Lisinopril was increased to 10 mg 08/03/17 - SBP improving (4) History of BPH Current Visit: No Status: Chronic Priority: Medium Code(s): Z87.438 - PERSONAL HISTORY OF OTHER DISEASES OF MALE GENITAL ORGANS SNOMED Code(s): 617772930 Comment: - Continue Toviaz. (5) History of glaucoma Current Visit: No Status: Chronic Priority: Medium Code(s): Z86.69 - PERSONAL HISTORY OF DIS OF THE NERVOUS SYS AND SENSE ORGANS SNOMED Code(s): 725535359 Comment: stable - continue home eye drops (6) History of hypothyroidism Current Visit: No Status: Chronic Priority: Medium Code(s): Z86.39 - PERSONAL HISTORY OF ENDO, NUTRITIONAL AND METABOLIC DISEASE SNOMED Code(s): 551486673 Comment: - Continue levothyroxine 200 mcg (7) DVT prophylaxis Current Visit: No Status: Acute Priority: Medium Onset Date: 03/06/14 Code(s): ZMY3309 - SNOMED Code(s): 655482165 (8) Full code status Current Visit: No Status: Acute Priority: Medium Onset Date: 03/06/14 Code(s): Z78.9 - OTHER SPECIFIED HEALTH STATUS SNOMED Code(s): 861626481 Status and Disposition: inpatient - will most likely need STR at discharge.
[2017-08-04] MEDS: Latanoprost 0.005%* 2.5 ml BTL BOTH EYES SCH (18:16)
[2017-08-04] MEDS: Bacitracin OINTMENT* 0.5% 0.5 oz TUBE TOPICAL SCH (20:40)
[2017-08-05] MEDS: traMADol TAB* 50 MG PO PRN (05:30)
[2017-08-05] MEDS: Levothyroxine TAB* 100 MCG TAB PO SCH (05:30)
[2017-08-05] MEDS: Omeprazole CAP* 20 MG PO SCH (05:30)
[2017-08-05] MEDS: Heparin VIAL(*) 5000 UNITS/ML VIAL (FIVE THOUSAND) SUBCUT SCH (05:32)
[2017-08-05 06:51] LABS: ABS Basophils 0 10^3/ul (0-0.2); ABS Eosinophils 0.2 10^3/ul (0-0.6); ABS Lymphocytes 1.9 10^3/ul (1.0-4.8); ABS Monocytes 0.5 10^3/ul (0-0.8); ABS Neutrophils 2.8 10^3/ul (1.5-7.7); ABS Nucleated RBC 0 10^3/ul; Eosinophil % 3.5 % (0-6); Hematocrit 37 % (42-52); Hemoglobin 12.9 g/dl (14.0-18.0); Lymphocyte % 35.7 % (25-47); Mean Corpuscular HGB Conc 35 g/dl (31-36); Mean Corpuscular Hemoglobin 31 pg (27-31); Mean Corpuscular Volume 87 fL (80-94); Mean Platelet Volume 7.8 um3 (7.4-10.4); Nucleated Red Blood Cells % 0.1; Platelet Count 163 10^3/ul (150-450); Red Cell Distribution Width 14 % (10.5-15); White Blood Count 5.4 10^3/ul (3.5-10.8)
[2017-08-05 06:58] LABS: EGFR Non-African American 50.2 (>60)
--- NOTE | 2017-08-05 08:38 | PN ---
Subjective Date of Service: 08/05/17 Interval History: Mr. Shah denies complaint and is eager for breakfast and then discharge to [facility]. Family History: Unchanged from Admission Social History: Unchanged from Admission Past Medical History: Unchanged from Admission Objective Active Medications: Acetaminophen (Tylenol Tab*) 650 mg PO Q6H PRN Bacitracin (Bacitracin Ointment*) 1 applic TOPICAL BID [facility] Docusate Sodium (Colace Cap*) 200 mg PO BID [facility] Fesoterodine Fumarate (Toviaz (Nf)) 8 mg PO DAILY [facility] Heparin Sodium (Porcine) (Heparin Vial(*)) 5,000 units SUBCUT Q8HR [facility] Latanoprost (Xalatan 0.005%*) 1 drop BOTH EYES QPM [facility] Levothyroxine Sodium (Synthroid Tab*) 200 mcg PO 0600 [facility] Lisinopril (Prinivil Tab*) 10 mg PO DAILY [facility] Morphine Sulfate (Morphine Vial*) 2 mg IV Q4H PRN Omeprazole (Prilosec Cap*) 20 mg PO DAILY@0600 [facility] Oxycodone HCl (Roxycodone Tab*) 5 mg PO Q4H PRN Timolol Maleate (Timoptic 0.5% Opth*) 1 drop BOTH EYES QAM [facility] Tramadol HCl (Ultram*) 50 mg PO Q6H PRN Vital Signs: Temp Pulse Resp BP Pulse Ox 97.9 F 72 18 146/51 96 08/05/17 07:28 08/05/17 07:28 08/05/17 07:28 08/05/17 07:28 08/05/17 07:28 Oxygen Devices in Use Now: None Appearance: Male lying in bed in NAD Eyes: No Scleral Icterus Ears/Nose/Mouth/Throat: Mucous Membranes Moist Neck: Trachea Midline Respiratory: Symmetrical Chest Expansion and Respiratory Effort, Clear to Auscultation Cardiovascular: NL Sounds; No Murmurs; No JVD, No Edema Abdominal: NL Sounds; No Tenderness; No Distention Lymphatic: No Cervical Adenopathy Extremities: No Edema Skin: - - L LE dressing CDI (abrasion) CDI, R LE cast CDI, + CMS Neurological: Alert and Oriented x 3, NL Muscle Strength and Tone Nutrition: Taking PO's Result Diagrams: 08/05/17 06:06 08/05/17 06:06 Assess/Plan/Problems-Billing Assessment: Mr. Shah is an 86 y.o male with a history of renal cell CA s/p right nephrectomy , CKD, hypothyroid, glaucoma who presented with a right ankle fracture, now s/ p repair. 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 (3) HTN (hypertension) Comment: - Lisinopril was increased to 10 mg 08/03/17 - SBP improving (4) Chronic kidney disease (CKD), stage III (moderate) Comment: - Stage 3 - Stable, at baseline (5) History of BPH Comment: - Continue Toviaz. (6) History of glaucoma Comment: stable - continue home eye drops (7) History of hypothyroidism Comment: - Continue levothyroxine 200 mcg (8) DVT prophylaxis Comment: per Ortho (9) Full code status Comment: Status and Disposition: Discharge to [facility].
[2017-08-05] MEDS: Timolol 0.5% OPTH.SOL* BTL BOTH EYES SCH (08:40)
[2017-08-05] MEDS: Docusate CAP* 100 MG PO SCH ×2 (08:40→08:41)
[2017-08-05] MEDS: Lisinopril TAB* 10 MG PO SCH (08:40)
[2017-08-05] MEDS: FESOTERODINE 8 MG PO SCH (08:40)
[2017-08-05] MEDS: Bacitracin OINTMENT* 0.5% 0.5 oz TUBE TOPICAL SCH (08:40)
[2017-08-05 10:20] VITALS: BP 146/51
--- NOTE | 2017-08-06 03:09 | DS ---
CC: Niurka Lei MD* [facility] MEDICINE DISCHARGE SUMMARY: DATE OF ADMISSION: 07/31/17 DATE OF DISCHARGE: 08/05/17 ATTENDING PHYSICIAN: Sunita Mendoza DO * (dictation provided by Marylin Anand NP ). PRIMARY DIAGNOSIS: Right ankle fracture status post internal fixation, right medial malleolus on 08/01/17. SECONDARY DIAGNOSES: 1. Hypertension. 2. Obstructive sleep apnea with CPAP. 3. Renal cell carcinoma status post nephrectomy. 4. Chronic kidney disease stage 3A. 5. Hypothyroidism. 6. Benign prostatic hypertrophy. 7. Glaucoma. PAST SURGICAL HISTORY: 1. Right nephrectomy. 2. TURP. 3. Bilateral TKA's. 4. Tonsillectomy. 5. Appendectomy. 6. Cholecystectomy. 7. Thyroidectomy. MEDICATIONS AT THE TIME OF DISCHARGE: 1. Latanoprost 0.005% 1 drop both eyes q.p.m. 2. Fluticasone nasal spray 1 spray both nares daily. 3. Toviaz 8 mg p.o. daily. 4. Timolol 0.5% 1 drop both eyes q.a.m. 5. Levothyroxine 200 mcg p.o. daily. 6. Oxycodone 5 mg p.o. q.4 hours p.r.n. 7. Lisinopril 10 mg p.o. daily. 8. Docusate 200 mg p.o. b.i.d. 9. Bacitracin apply topically b.i.d. to left lower extremity abrasions. 10. Tylenol 650 mg p.o. q.6 hours p.r.n. HOSPITAL COURSE: Mr. Mauro Shah is an 86-year-old male with a past medical history as mentioned above who presented to the hospital on 07/31/17 after a mechanical fall with right ankle pain. Please see the dictated H and P from Dr. Edwin Alcocer for complete details. In brief, the patient states that he fell from his lawn tractor after he had his right foot caught. In the emergency room, he was confirmed to have a bimalleolar fracture via x-ray. He was unable to ambulate after reduction and splinting and therefore, was placed on observation status in the hospital. Mr. Shah was seen in consultation by Dr. Mitchell Sanderson and his team. He recommended that the patient have internal fixation of the right medial malleolus which was performed on 08/01/17.Mr. Shah has been doing well postoperatively. His hemoglobin has only fallen minimally; on arrival it was 14.7 and on 08/05/17 it was 12.9. His BUN and creatinine have remained stable and consistent with his history of CKD. During the hospitalization, the patient was noted to have a slightly uncontrolled blood pressure with systolics running 100 to 160. For this reason , his lisinopril was increased from 5 to 10 mg and today and his blood pressure is running in the 140s systolically. Mr. Shah has continued to work with Physical and Occupational therapy but continues to need further rehabilitation and has been accepted by [facility]. The patient is to be discharged there today and then to follow up with Dr. Lei and Dr. Sanderson in the outpatient setting. DISPOSITION: To [facility]. DIET: Low fat, low salt. ACTIVITY: Nonweightbearing, right lower extremity. FOLLOWUP PLANS: Please follow up with Dr. Sanderson per recommendations from Orthopedics. Please follow up with Dr. Lei at the time of discharge regarding ongoing management of chronic medical problems including blood pressure. TIME SPENT: Approximately 60 minutes were spent on the discharge of this patient, more than half that time spent with the patient at the bedside reviewing the events leading up to and during this hospitalization, performing the physical examination and reviewing my discharge plan. MARYLIN ANAND NP [id number]/[facility] #: [id number] NIKITA
--- NOTE | 2017-08-07 08:22 | RAD ---
INDICATION: Fall, right ankle fracture COMPARISONS: July 31, 2017 TECHNIQUE: Fluoroscopy was provided for a surgical procedure. Total fluoroscopy time is: 1.6 seconds. Images are submitted for review on August 07, 2017 FINDINGS: A single spot image demonstrates internal fixation of the medial malleolus. IMPRESSION: FLUOROSCOPY WAS PROVIDED FOR A SURGICAL PROCEDURE CPT II Codes: G9500
== END 2017-08-05 09:45 | DRG 494 ==
LOC: ED 16:56 → SSU 22:31 → OBSVTOIN 08-01 15:04
PROVIDERS: ADMIT Hospitalist; ATTEND Hospitalist
PROC: 2W3QX1Z Immobilization of Right Lower Leg using Splint (ICD-10-PCS; 2017-08-01)
PROC: 0QSG04Z Reposition Right Tibia with Internal Fixation Device, Open Approach (ICD-10-PCS; principal; 2017-08-01 14:15)
DX: S82.51XA Displaced fracture of medial malleolus of right tibia, initial encounter for closed fracture (principal); S80.812A Abrasion, left lower leg, initial encounter; I12.9 Hypertensive chronic kidney disease with stage 1 through stage 4 chronic kidney disease, or unspecified chronic kidney disease; N18.3 Chronic kidney disease, stage 3 (moderate); G47.33 Obstructive sleep apnea (adult) (pediatric); H40.9 Unspecified glaucoma; I89.0 Lymphedema, not elsewhere classified; Z96.653 Presence of artificial knee joint, bilateral; E89.0 Postprocedural hypothyroidism; N40.0 Benign prostatic hyperplasia without lower urinary tract symptoms; E66.9 Obesity, unspecified; Z85.53 Personal history of malignant neoplasm of renal pelvis; Z90.5 Acquired absence of kidney; Z90.79 Acquired absence of other genital organ(s); Z90.49 Acquired absence of other specified parts of digestive tract; Z79.51 Long term (current) use of inhaled steroids; W30.9XXA Contact with unspecified agricultural machinery, initial encounter; Y92.89 Other specified places as the place of occurrence of the external cause; Z72.89 Other problems related to lifestyle; Z82.49 Family history of ischemic heart disease and other diseases of the circulatory system; Z83.3 Family history of diabetes mellitus; Z80.3 Family history of malignant neoplasm of breast; Z86.718 Personal history of other venous thrombosis and embolism; Z68.37 Body mass index [BMI] 37.0-37.9, adult
CPT/HCPCS: 36415; 76000; 80048; 80053; 82565; 84520; 85025; 85027; 85610; 85730; 99285; A9270-GY; C1713; C1776; G8978-GP-CM; G8979-GP-CL; G8987-GO-CM; G8988-GO-CI; J0690; J1644; J2270; J2704; J3010

== ENCOUNTER 2017-08-05 07:03 | Inpatient (IN) | payer MEDICARE, OTHER ==
[2017-08-05] MEDS ORDERED: Bisacodyl SUPP* 10 MG SUPP PR PRN (11:15)
[2017-08-05] MEDS ORDERED: Senna TAB PO PRN (11:15)
[2017-08-05] MEDS ORDERED: Magnesium Hydroxide LIQ* 30 ML UDC PO PRN (11:15)
--- NOTE | 2017-08-05 12:33 | PMRUTEAM ---
PMRU: Team Meeting Current Status: Nursing: Current Status Skin Deviations [Left Lower Abrasion Leg] Skin Deviations [Right Leg] Other Skin Deviation Description [ Abrasions X2-described in note Left Lower Leg] Skin Deviation Description [ cast Right Leg] Skin Deviation Description [ red raised bumps Back] Physical Therapy: Current Status Bed Mobility Assistance Mod Assist Transfer Moblility Assistance Mod Assist,2 or More Person Assist Ambulation Assistance Unable Ambulation Assistive Devices Rolling Walker Stairs Assistance NT Stairs Recommended Devices Two Rails Number of Stairs Occupational Therapy: Current Status Upper Body Dressing Min Assist Lower Body Dressing Total Assist Bathing Min Assist Toileting Total Assist,2 Person Assist Eating Independent Nutrition: Current Status Monitoring full assessment planned on 08/12 per NDS protocol. Initial/tentative goals as outlined below. Goals: Occupational Therapy: Initial Goals Goals to be Completed in (Days 21-30 ) Upper Body Bathing Routine Supervision/Set Up Lower Body Bathing Routine Minimal Contact Assist Upper Body Dressing Routine Supervision/Set Up Lower Body Dressing Routine Moderate Assist Toilet Hygeine and Clothing Minimal Contact Assist Management Routine Toilet Transfer Routine Supervision/Set Up Step-In Shower Transfer Supervision/Set Up Routine Functional Transfers for ADL Supervision/Set Up Grooming Routine Independent Feeding Routine Independent Nutrition: Goals Intervention Goals 1. adequate po intake to support lean body mass, hydration, and stable wt 2. glycemic control within inpatient parameters and without s/sx hypo- or hyperglycemia 3. achieve and maintain regular bowel pattern without constipation or diarrhea 4. skin will remain intact without s/sx breakdown Medicine Note: Length of Stay: 3 weeks Anticipated Discharge Destination: Tentative Discharge Date: 08/26/17 Discharged to: Home
[2017-08-05] MEDS: Heparin VIAL(*) 5000 UNITS/ML VIAL (FIVE THOUSAND) SUBCUT SCH ×2 (13:21→20:56)
[2017-08-05] MEDS ORDERED: Latanoprost 0.005%* 2.5 ml BTL BOTH EYES SCH (18:00)
[2017-08-05] MEDS: Docusate CAP* 100 MG PO SCH (19:29)
[2017-08-05] MEDS: traMADol TAB* 50 MG PO PRN (20:09)
[2017-08-05] MEDS: Bacitracin OINTMENT* 0.5% 0.5 oz TUBE TOPICAL SCH (20:56)
--- NOTE | 2017-08-05 22:54 | HP ---
ADMISSION HISTORY AND PHYSICAL: DATE OF ADMISSION: 08/05/17 HISTORY OF PRESENT ILLNESS: Mauro Shah is an 86-year-old white male. He has a history of renal cancer and has undergone a right nephrectomy. He also has a history of hypothyroidism. On 07/31/17, the patient was mowing his lawn. He was getting off the recovery auditor and his right foot got stuck and he had difficulty getting off the mower. He was unable to stand after that. EMS was called and may noted a deformity of his right ankle. They tried to reduce the ankle. He was brought to the emergency room. X-rays were done, which showed a transverse fracture of the medial malleolus and avulsion fracture of the distal fibula on the right side. He was splinted, but was unable to return home. He was then admitted to the hospital. He was seen in consultation by Orthopedics. It was recommended that he have surgical fixation of his ankle. He was made n.p.o. He was taken to the operating room on 08/01/[address] Sanderson and underwent an internal fixation of the right medial malleolus. Postoperatively, the patient was made nonweightbearing. He was placed in a splint. He was put on heparin for DVT prophylaxis. He was felt to have physical therapy and occupational therapy needs even after working with PT and OT on the acute service. He is now being admitted for inpatient rehab so that he might return to independent living. PAST MEDICAL HISTORY: Significant for the aforementioned renal cell cancer. He has undergone a right nephrectomy. He has had a history of bilateral knee replacements, the last one was in 2008. He has a history of hypothyroidism. He has a history of glaucoma, chronic kidney disease stage 3. CURRENT MEDICATIONS: Include: 1. Toviaz. 2. He is also on heparin for DVT prophylaxis. 3. Eyedrops for glaucoma. 4. Lisinopril. 5. Synthroid. 6. Omeprazole. ALLERGIES: No known drug allergies. SOCIAL HISTORY: He is a nonsmoker and nondrinker. Lives with his in a 2- story house. He can stay on the first floor if needed. His is currently undergoing treatment for ovarian cancer. REVIEW OF SYSTEMS: The patient reports no current shortness of breath or chest pain. PHYSICAL EXAMINATION VITAL SIGNS: The patient's temperature is 97.8, blood pressure is 143/58, pulse 72, respirations 18. HEENT: His extraocular movements were intact. Tongue is midline. NECK: Supple with no lymphadenopathy. LUNGS: Sound clear to auscultation bilaterally. HEART: Sounds were regular. S1 and S2 were audible. ABDOMEN: Soft and nontender. EXTREMITIES: Reveal his right leg is in a cast. He is able to wiggle the toes on the right foot. Left leg looks okay. NEUROLOGIC: He is awake, alert, oriented. Muscle strength is about 5/5 except the right lower extremity is 3/5. FUNCTIONAL EXAM: The patient is dependent in bed mobilities. ASSESSMENT: Right medial malleolar fracture, status post internal fixation. PLAN: We are going to integrate him into a comprehensive and therapeutic rehab program. We will have the following goals: 1. Physical Therapy will work with the patient. They are going to work on functional transfer training, ambulation training, hopping and wheelchair mobilities. 2. Occupational Therapy will see the patient, work on his activities of daily living including toileting and toilet transfers. 3. Heparin for DVT prophylaxis. 4. Adequate analgesia, although he has very little pain at the present time. 5. His bowels will be regulated. 6. For his blood pressure, we are going to continue lisinopril. 7. Continue Synthroid for hypothyroidism. 8. For his glaucoma, we will continue his Xalatan eye drops as well as his Timoptic. 9. Family training as appropriate. 10. special services agent will be closely involved to make sure that any services and equipment the patient requires are in place prior to discharge. 11. He does have some abrasions on his left leg. We will continue bacitracin ointment to these. 12. Home with appropriate services. ESTIMATED LENGTH OF STAY: 10 to 12 days. [id number]/[facility] #: [id number] NIKITA
[2017-08-06] MEDS: Levothyroxine TAB* 100 MCG TAB PO SCH (05:45)
[2017-08-06] MEDS: Omeprazole CAP* 20 MG PO SCH (05:45)
[2017-08-06] MEDS: Heparin VIAL(*) 5000 UNITS/ML VIAL (FIVE THOUSAND) SUBCUT SCH ×3 (05:46→21:37)
[2017-08-06 06:24] LABS: ABS Basophils 0 10^3/ul (0-0.2); ABS Eosinophils 0.2 10^3/ul (0-0.6); ABS Lymphocytes 1.8 10^3/ul (1.0-4.8); ABS Monocytes 0.5 10^3/ul (0-0.8); ABS Neutrophils 2.2 10^3/ul (1.5-7.7); ABS Nucleated RBC 0 10^3/ul; Eosinophil % 3.6 % (0-6); Hematocrit 35 % (42-52); Hemoglobin 12.3 g/dl (14.0-18.0); Lymphocyte % 38.6 % (25-47); Mean Corpuscular HGB Conc 35 g/dl (31-36); Mean Corpuscular Hemoglobin 31 pg (27-31); Mean Corpuscular Volume 88 fL (80-94); Mean Platelet Volume 7.4 um3 (7.4-10.4); Nucleated Red Blood Cells % 0.1; Platelet Count 157 10^3/ul (150-450); Red Cell Distribution Width 14 % (10.5-15); White Blood Count 4.6 10^3/ul (3.5-10.8)
[2017-08-06] MEDS: FESOTERODINE 8 MG PO SCH (08:12)
[2017-08-06] MEDS: Lisinopril TAB* 10 MG PO SCH (08:13)
[2017-08-06] MEDS: Docusate CAP* 100 MG PO SCH ×2 (08:13→19:32)
[2017-08-06] MEDS: Timolol 0.5% OPTH.SOL* BTL BOTH EYES SCH (08:16)
[2017-08-06] MEDS: Bacitracin OINTMENT* 0.5% 0.5 oz TUBE TOPICAL SCH ×2 (08:16→19:46)
[2017-08-06] MEDS: traMADol TAB* 50 MG PO PRN (18:54)
--- NOTE | 2017-08-06 19:29 | PN ---
Progress Note Date of Service: 08/06/17 Note: MAYUR MCNEIL was visited. Therapy notes read and reviewed. He feels like he is doing a little better with movement. Otherwise he has no complaints. Current Medications: Active Medications Generic Name Dose Route Start Last Admin Trade Name Freq PRN Reason Stop Dose Admin Acetaminophen 650 mg 08/05/17 11:15 Tylenol Tab* PO Q6H PRN FEVER/PAIN Bacitracin 1 applic 08/05/17 21:00 08/06/17 08:16 Bacitracin Ointment* TOPICAL 1 applic BID ALLA Administration Bisacodyl 10 mg 08/05/17 11:15 Dulcolax Supp* [place] DAILY PRN CONSTIPATION Docusate Sodium 100 mg 08/05/17 21:00 08/06/17 08:13 Colace Cap* PO 100 mg BID ALLA Administration Fesoterodine Fumarate 8 mg 08/06/17 09:00 08/06/17 08:12 Toviaz (Nf) PO 8 mg DAILY ALLA Administration Heparin Sodium (Porcine) 5,000 units 08/05/17 14:00 08/06/17 14:13 Heparin Vial(*) SUBCUT 5,000 units Q8HR ALLA Administration Latanoprost 1 drop 08/06/17 21:00 Xalatan 0.005%* BOTH EYES BEDTIME ALLA Levothyroxine Sodium 200 mcg 08/06/17 06:00 08/06/17 05:45 Synthroid Tab* PO 200 mcg DAILY@0600 ALLA Administration Lisinopril 10 mg 08/06/17 09:00 08/06/17 08:13 Prinivil Tab* PO 10 mg DAILY ALLA Administration Magnesium Hydroxide 30 ml 08/05/17 11:15 Milk Of Magnesia Liq* PO Q6H PRN CONSTIPATION Omeprazole 20 mg 08/06/17 06:00 08/06/17 05:45 Prilosec Cap* PO 20 mg 0600 ALLA Administration Senna 2 tab 08/05/17 11:15 Senokot Tab* PO BEDTIME PRN CONSTIPATION Timolol Maleate 1 drop 08/06/17 09:00 08/06/17 08:16 Timoptic 0.5% Opth* BOTH EYES 1 drop DAILY ALLA Administration Tramadol HCl 50 mg 08/05/17 11:23 08/06/17 18:54 Ultram* PO 50 mg Q6H PRN Administration PAIN - MODERATE Vital Signs: Vital Signs Temp Pulse Resp BP Pulse Ox 97.7 F 72 18 140/46 99 08/06/17 15:38 08/06/17 15:38 08/06/17 18:56 08/06/17 15:38 08/06/17 17:19 Lab Results: Laboratory Results - last 24 hr 08/06/17 08/06/17 06:07 06:07 WBC 4.6 RBC 4.00 Hgb 12.3 L Hct 35 L MCV 88 MCH 31 MCHC 35 RDW 14 Plt Count 157 MPV 7.4 Neut % (Auto) 47.4 Lymph % (Auto) 38.6 Fleming % (Auto) 10.0 H Eos % (Auto) 3.6 Baso % (Auto) 0.4 Absolute Neuts (auto) 2.2 Absolute Lymphs (auto) 1.8 Absolute Monos (auto) 0.5 Absolute Eos (auto) 0.2 Absolute Basos (auto) 0 Absolute Nucleated RBC 0 Nucleated RBC % 0.1 Sodium 138 L Potassium 4.3 Chloride 108 Carbon Dioxide 26 Anion Gap 4 BUN 38 H Creatinine 1.38 H Est GFR ( Amer) 63.0 Est GFR (Non-Af Amer) 49.0 BUN/Creatinine Ratio 27.5 H Glucose 115 H Calcium 9.0 Total Bilirubin 0.40 AST 17 ALT 7 Alkaline Phosphatase 45 Total Protein 5.7 L Albumin 3.1 L Globulin 2.6 Albumin/Globulin Ratio 1.2 Exam: LUNGS: Clear HEART: Regular rhythm ABDOMEN: Soft EXTREMITIES: Right ankle in splint. Able to move toes NEUROLOGIC: alert and oriented. Moves all 4 extremities. Assessment/Plan: 1. Right medial malleolar fracture, distal fibular fracture, S/P internal fixation: NWB RLE. PT/OT 2. CKD, Stage 3: stable 3. Hypothyroidism: Synthroid 4. Glaucoma: Eye drops 5. DVT Prophylaxis: Heparin S/Q 6. Advanced directives: Full code. is HCP 08/06/17 19:31
[2017-08-06] MEDS: Latanoprost 0.005%* 2.5 ml BTL BOTH EYES SCH (19:46)
[2017-08-07] MEDS: Omeprazole CAP* 20 MG PO SCH (05:53)
[2017-08-07] MEDS: Levothyroxine TAB* 100 MCG TAB PO SCH (05:56)
[2017-08-07] MEDS: Heparin VIAL(*) 5000 UNITS/ML VIAL (FIVE THOUSAND) SUBCUT SCH ×3 (05:59→20:35)
[2017-08-07] MEDS: Bacitracin OINTMENT* 0.5% 0.5 oz TUBE TOPICAL SCH ×2 (09:20→20:36)
[2017-08-07] MEDS: Docusate CAP* 100 MG PO SCH ×2 (09:39→20:36)
[2017-08-07] MEDS: FESOTERODINE 8 MG PO SCH (09:40)
[2017-08-07] MEDS: Timolol 0.5% OPTH.SOL* BTL BOTH EYES SCH (09:41)
[2017-08-07] MEDS: traMADol TAB* 50 MG PO PRN (09:41)
[2017-08-07] MEDS: Lisinopril TAB* 10 MG PO SCH (09:41)
--- NOTE | 2017-08-07 20:06 | PN ---
Progress Note Date of Service: 08/07/17 Note: MAYUR MCNEIL was visited. Therapy notes read and reviewed. he would like to go home but still a little unsteady. Breathing ok. Pain controlled Current Medications: Active Medications Generic Name Dose Route Start Last Admin Trade Name Freq PRN Reason Stop Dose Admin Acetaminophen 650 mg 08/05/17 11:15 Tylenol Tab* PO Q6H PRN FEVER/PAIN Bacitracin 1 applic 08/05/17 21:00 08/07/17 09:20 Bacitracin Ointment* TOPICAL Not Given BID ALLA Bisacodyl 10 mg 08/05/17 11:15 Dulcolax Supp* [place] DAILY PRN CONSTIPATION Docusate Sodium 100 mg 08/05/17 21:00 08/07/17 09:39 Colace Cap* PO 100 mg BID ALLA Administration Fesoterodine Fumarate 8 mg 08/08/17 09:00 Toviaz (Nf) PO 0900 ALLA Heparin Sodium (Porcine) 5,000 units 08/05/17 14:00 08/07/17 13:47 Heparin Vial(*) SUBCUT 5,000 units Q8HR ALLA Administration Latanoprost 1 drop 08/06/17 21:00 08/06/17 19:46 Xalatan 0.005%* BOTH EYES 1 drop BEDTIME ALLA Administration Levothyroxine Sodium 200 mcg 08/06/17 06:00 08/07/17 05:56 Synthroid Tab* PO 200 mcg DAILY@0600 ALLA Administration Lisinopril 10 mg 08/06/17 09:00 08/07/17 09:41 Prinivil Tab* PO 10 mg DAILY ALLA Administration Magnesium Hydroxide 30 ml 08/05/17 11:15 Milk Of Magnesia Liq* PO Q6H PRN CONSTIPATION Omeprazole 20 mg 08/06/17 06:00 08/07/17 05:53 Prilosec Cap* PO 20 mg 0600 ALLA Administration Senna 2 tab 08/05/17 11:15 Senokot Tab* PO BEDTIME PRN CONSTIPATION Timolol Maleate 1 drop 08/06/17 09:00 08/07/17 09:41 Timoptic 0.5% Opth* BOTH EYES 1 drop DAILY ALLA Administration Tramadol HCl 50 mg 08/05/17 11:23 08/07/17 09:41 Ultram* PO 50 mg Q6H PRN Administration PAIN - MODERATE Vital Signs: Vital Signs Temp Pulse Resp BP Pulse Ox 98.1 F 61 18 114/56 98 08/07/17 15:15 08/07/17 15:15 08/07/17 15:15 08/07/17 15:15 08/07/17 15:15 Exam: LUNGS: Clear HEART: Regular rhythm ABDOMEN: Soft EXTREMITIES: Right ankle in splint. Able to move toes NEUROLOGIC: alert and oriented. Moves all 4 extremities. Assessment/Plan: 1. Right medial malleolar fracture, distal fibular fracture, S/P internal fixation: NWB RLE. PT/OT 2. CKD, Stage 3: stable 3. Hypothyroidism: Synthroid 4. Glaucoma: Eye drops 5. DVT Prophylaxis: Heparin S/Q 6. Advanced directives: Full code. is HCP 08/07/17 20:06
[2017-08-07] MEDS: Acetaminophen TAB* 325 MG PO PRN (20:35)
[2017-08-07] MEDS: Latanoprost 0.005%* 2.5 ml BTL BOTH EYES SCH (20:36)
[2017-08-08] MEDS: Heparin VIAL(*) 5000 UNITS/ML VIAL (FIVE THOUSAND) SUBCUT SCH ×3 (05:38→20:42)
[2017-08-08] MEDS: Levothyroxine TAB* 100 MCG TAB PO SCH (05:39)
[2017-08-08] MEDS: Omeprazole CAP* 20 MG PO SCH (05:39)
[2017-08-08] MEDS: Bacitracin OINTMENT* 0.5% 0.5 oz TUBE TOPICAL SCH ×2 (07:29→19:20)
[2017-08-08] MEDS: traMADol TAB* 50 MG PO PRN ×2 (09:10→19:19)
[2017-08-08] MEDS: Docusate CAP* 100 MG PO SCH ×2 (09:10→19:19)
[2017-08-08] MEDS: Lisinopril TAB* 10 MG PO SCH (09:10)
[2017-08-08] MEDS: FESOTERODINE 8 MG PO SCH (09:10)
[2017-08-08] MEDS: Timolol 0.5% OPTH.SOL* BTL BOTH EYES SCH (09:10)
--- NOTE | 2017-08-08 16:28 | PN ---
Progress Note Date of Service: 08/08/17 Note: MAYUR MCNEIL was visited. Therapy notes read and reviewed. Don is working hard with therapy but having a hard time maintaining NWB as his left leg was weaker than his right prior to his ankle fracture. Current Medications: Active Medications Generic Name Dose Route Start Last Admin Trade Name Freq PRN Reason Stop Dose Admin Acetaminophen 650 mg 08/05/17 11:15 08/07/17 20:35 Tylenol Tab* PO 650 mg Q6H PRN Administration FEVER/PAIN Bacitracin 1 applic 08/05/17 21:00 08/08/17 07:29 Bacitracin Ointment* TOPICAL Not Given BID ALLA Bisacodyl 10 mg 08/05/17 11:15 Dulcolax Supp* [place] DAILY PRN CONSTIPATION Docusate Sodium 100 mg 08/05/17 21:00 08/08/17 09:10 Colace Cap* PO 100 mg BID ALLA Administration Fesoterodine Fumarate 8 mg 08/08/17 09:00 08/08/17 09:10 Toviaz (Nf) PO 8 mg 0900 ALLA Administration Heparin Sodium (Porcine) 5,000 units 08/05/17 14:00 08/08/17 13:36 Heparin Vial(*) SUBCUT 5,000 units Q8HR ALLA Administration Latanoprost 1 drop 08/06/17 21:00 08/07/17 20:36 Xalatan 0.005%* BOTH EYES 1 drop BEDTIME ALLA Administration Levothyroxine Sodium 200 mcg 08/06/17 06:00 08/08/17 05:39 Synthroid Tab* PO 200 mcg DAILY@0600 ALLA Administration Lisinopril 10 mg 08/06/17 09:00 08/08/17 09:10 Prinivil Tab* PO 10 mg DAILY ALLA Administration Magnesium Hydroxide 30 ml 08/05/17 11:15 Milk Of Magnesia Liq* PO Q6H PRN CONSTIPATION Omeprazole 20 mg 08/06/17 06:00 08/08/17 05:39 Prilosec Cap* PO 20 mg 0600 ALLA Administration Senna 2 tab 08/05/17 11:15 Senokot Tab* PO BEDTIME PRN CONSTIPATION Timolol Maleate 1 drop 08/06/17 09:00 08/08/17 09:10 Timoptic 0.5% Opth* BOTH EYES 1 drop DAILY ALLA Administration Tramadol HCl 50 mg 08/05/17 11:23 08/08/17 09:10 Ultram* PO 50 mg Q6H PRN Administration PAIN - MODERATE Vital Signs: Vital Signs Temp Pulse Resp BP Pulse Ox 98.7 F 64 22 107/54 99 08/08/17 15:47 08/08/17 15:47 08/08/17 15:47 08/08/17 15:47 08/08/17 15:47 Exam: LUNGS: Clear HEART: Regular rhythm ABDOMEN: Soft EXTREMITIES: Right ankle in splint. Able to move toes NEUROLOGIC: alert and oriented. Moves all 4 extremities. Assessment/Plan: 1. Right medial malleolar fracture, distal fibular fracture, S/P internal fixation: NWB RLE. PT/OT 2. CKD, Stage 3: stable 3. Hypothyroidism: Synthroid 4. Glaucoma: Eye drops 5. DVT Prophylaxis: Heparin S/Q 6. Advanced directives: Full code. is HCP 08/08/17 16:28
[2017-08-08] MEDS: Latanoprost 0.005%* 2.5 ml BTL BOTH EYES SCH (19:20)
[2017-08-09] MEDS: Levothyroxine TAB* 100 MCG TAB PO SCH (06:14)
[2017-08-09] MEDS: Omeprazole CAP* 20 MG PO SCH (06:14)
[2017-08-09] MEDS: Heparin VIAL(*) 5000 UNITS/ML VIAL (FIVE THOUSAND) SUBCUT SCH ×3 (06:15→20:49)
[2017-08-09] MEDS: Lisinopril TAB* 10 MG PO SCH (09:31)
[2017-08-09] MEDS: Docusate CAP* 100 MG PO SCH ×2 (09:32→20:46)
[2017-08-09] MEDS: Timolol 0.5% OPTH.SOL* BTL BOTH EYES SCH (09:32)
[2017-08-09] MEDS: FESOTERODINE 8 MG PO SCH (09:32)
[2017-08-09] MEDS: Bacitracin OINTMENT* 0.5% 0.5 oz TUBE TOPICAL SCH ×2 (09:45→20:49)
[2017-08-09] MEDS: traMADol TAB* 50 MG PO PRN ×2 (13:44→20:46)
[2017-08-09] MEDS: Acetaminophen TAB* 325 MG PO PRN (17:32)
--- NOTE | 2017-08-09 19:31 | PN ---
Progress Note Date of Service: 08/09/17 Note: MAYUR MCNEIL was visited. Therapy notes read and reviewed. He feels like the swelling in his leg has gone down. The cast is a bit looser Current Medications: Active Medications Generic Name Dose Route Start Last Admin Trade Name Freq PRN Reason Stop Dose Admin Acetaminophen 650 mg 08/05/17 11:15 08/09/17 17:32 Tylenol Tab* PO 650 mg Q6H PRN Administration FEVER/PAIN Bacitracin 1 applic 08/05/17 21:00 08/09/17 09:45 Bacitracin Ointment* TOPICAL 1 applic BID ALLA Administration Bisacodyl 10 mg 08/05/17 11:15 Dulcolax Supp* [place] DAILY PRN CONSTIPATION Docusate Sodium 100 mg 08/05/17 21:00 08/09/17 09:32 Colace Cap* PO 100 mg BID ALLA Administration Fesoterodine Fumarate 8 mg 08/08/17 09:00 08/09/17 09:32 Toviaz (Nf) PO 8 mg 0900 ALLA Administration Heparin Sodium (Porcine) 5,000 units 08/05/17 14:00 08/09/17 13:42 Heparin Vial(*) SUBCUT 5,000 units Q8HR ALLA Administration Latanoprost 1 drop 08/06/17 21:00 08/08/17 19:20 Xalatan 0.005%* BOTH EYES 1 drop BEDTIME ALLA Administration Levothyroxine Sodium 200 mcg 08/06/17 06:00 08/09/17 06:14 Synthroid Tab* PO 200 mcg DAILY@0600 ALLA Administration Lisinopril 10 mg 08/06/17 09:00 08/09/17 09:31 Prinivil Tab* PO 10 mg DAILY ALLA Administration Magnesium Hydroxide 30 ml 08/05/17 11:15 Milk Of Magnesia Liq* PO Q6H PRN CONSTIPATION Omeprazole 20 mg 08/06/17 06:00 08/09/17 06:14 Prilosec Cap* PO 20 mg 0600 ALLA Administration Senna 2 tab 08/05/17 11:15 Senokot Tab* PO BEDTIME PRN CONSTIPATION Timolol Maleate 1 drop 08/06/17 09:00 08/09/17 09:32 Timoptic 0.5% Opth* BOTH EYES 1 drop DAILY ALLA Administration Tramadol HCl 50 mg 08/05/17 11:23 08/09/17 13:44 Ultram* PO 50 mg Q6H PRN Administration PAIN - MODERATE Vital Signs: Vital Signs Temp Pulse Resp BP Pulse Ox 98.3 F 68 18 110/47 99 08/09/17 15:27 08/09/17 15:27 08/09/17 16:17 08/09/17 15:27 08/09/17 15:27 Exam: LUNGS: Clear HEART: Regular rhythm ABDOMEN: Soft EXTREMITIES: Right ankle in splint. Able to move toes NEUROLOGIC: alert and oriented. Moves all 4 extremities. Assessment/Plan: 1. Right medial malleolar fracture, distal fibular fracture, S/P internal fixation: NWB RLE. PT/OT. Ortho follow up next week 2. CKD, Stage 3: stable 3. Hypothyroidism: Synthroid 4. Glaucoma: Eye drops 5. DVT Prophylaxis: Heparin S/Q 6. Advanced directives: Full code. is HCP 08/09/17 19:32
[2017-08-09] MEDS: Latanoprost 0.005%* 2.5 ml BTL BOTH EYES SCH (20:48)
[2017-08-10] MEDS: Levothyroxine TAB* 100 MCG TAB PO SCH (05:13)
[2017-08-10] MEDS: Omeprazole CAP* 20 MG PO SCH (05:13)
[2017-08-10] MEDS: Heparin VIAL(*) 5000 UNITS/ML VIAL (FIVE THOUSAND) SUBCUT SCH ×3 (05:14→21:00)
[2017-08-10] MEDS: Lisinopril TAB* 10 MG PO SCH (08:26)
[2017-08-10] MEDS: Docusate CAP* 100 MG PO SCH ×2 (08:27→20:10)
[2017-08-10] MEDS: FESOTERODINE 8 MG PO SCH (08:28)
[2017-08-10] MEDS: Timolol 0.5% OPTH.SOL* BTL BOTH EYES SCH (08:29)
[2017-08-10] MEDS: Bacitracin OINTMENT* 0.5% 0.5 oz TUBE TOPICAL SCH ×2 (11:43→20:09)
[2017-08-10] MEDS: Acetaminophen TAB* 325 MG PO PRN (14:45)
--- NOTE | 2017-08-10 17:39 | PN ---
Progress Note Date of Service: 08/10/17 Note: MAYUR MCNEIL was visited. Nursing notes read and reviewed. Again, I reinforced that we would call ortho on Friday regarding his splint Current Medications: Active Medications Generic Name Dose Route Start Last Admin Trade Name Freq PRN Reason Stop Dose Admin Acetaminophen 650 mg 08/05/17 11:15 08/10/17 14:45 Tylenol Tab* PO 650 mg Q6H PRN Administration FEVER/PAIN Bacitracin 1 applic 08/05/17 21:00 08/10/17 11:43 Bacitracin Ointment* TOPICAL 1 applic BID ALLA Administration Bisacodyl 10 mg 08/05/17 11:15 Dulcolax Supp* [place] DAILY PRN CONSTIPATION Docusate Sodium 100 mg 08/05/17 21:00 08/10/17 08:27 Colace Cap* PO 100 mg BID ALLA Administration Fesoterodine Fumarate 8 mg 08/08/17 09:00 08/10/17 08:28 Toviaz (Nf) PO 8 mg 0900 ALLA Administration Heparin Sodium (Porcine) 5,000 units 08/05/17 14:00 08/10/17 14:43 Heparin Vial(*) SUBCUT 5,000 units Q8HR ALLA Administration Latanoprost 1 drop 08/06/17 21:00 08/09/17 20:48 Xalatan 0.005%* BOTH EYES 1 drop BEDTIME ALLA Administration Levothyroxine Sodium 200 mcg 08/06/17 06:00 08/10/17 05:13 Synthroid Tab* PO 200 mcg DAILY@0600 ALLA Administration Lisinopril 10 mg 08/06/17 09:00 08/10/17 08:26 Prinivil Tab* PO 10 mg DAILY ALLA Administration Magnesium Hydroxide 30 ml 08/05/17 11:15 Milk Of Magnesia Liq* PO Q6H PRN CONSTIPATION Omeprazole 20 mg 08/06/17 06:00 08/10/17 05:13 Prilosec Cap* PO 20 mg 0600 ALLA Administration Senna 2 tab 08/05/17 11:15 08/09/17 20:46 Senokot Tab* PO 2 tab BEDTIME PRN Administration CONSTIPATION Timolol Maleate 1 drop 08/06/17 09:00 08/10/17 08:29 Timoptic 0.5% Opth* BOTH EYES 1 drop DAILY ALLA Administration Tramadol HCl 50 mg 08/05/17 11:23 08/09/17 20:46 Ultram* PO 50 mg Q6H PRN Administration PAIN - MODERATE Vital Signs: Vital Signs Temp Pulse Resp BP Pulse Ox 97.9 F 64 16 111/54 99 08/10/17 15:10 08/10/17 15:10 08/10/17 15:10 08/10/17 15:10 08/10/17 15:10 Exam: LUNGS: Clear HEART: Regular rhythm ABDOMEN: Soft EXTREMITIES: Right ankle in splint. Able to move toes NEUROLOGIC: alert and oriented. Moves all 4 extremities. Assessment/Plan: 1. Right medial malleolar fracture, distal fibular fracture, S/P internal fixation: NWB RLE. PT/OT. Ortho follow up 2. CKD, Stage 3: stable 3. Hypothyroidism: Synthroid 4. Glaucoma: Eye drops 5. DVT Prophylaxis: Heparin S/Q 6. Advanced directives: Full code. is HCP 08/10/17 17:40
[2017-08-10] MEDS: traMADol TAB* 50 MG PO PRN (19:57)
[2017-08-10] MEDS: Latanoprost 0.005%* 2.5 ml BTL BOTH EYES SCH (20:10)
[2017-08-11] MEDS: Heparin VIAL(*) 5000 UNITS/ML VIAL (FIVE THOUSAND) SUBCUT SCH ×3 (06:33→21:04)
[2017-08-11] MEDS: Levothyroxine TAB* 100 MCG TAB PO SCH (06:34)
[2017-08-11] MEDS: Omeprazole CAP* 20 MG PO SCH (06:34)
[2017-08-11] MEDS: Bacitracin OINTMENT* 0.5% 0.5 oz TUBE TOPICAL SCH ×2 (08:17→21:03)
[2017-08-11] MEDS: Docusate CAP* 100 MG PO SCH ×2 (08:24→21:04)
[2017-08-11] MEDS: Lisinopril TAB* 10 MG PO SCH (08:24)
[2017-08-11] MEDS: FESOTERODINE 8 MG PO SCH (08:24)
[2017-08-11] MEDS: Timolol 0.5% OPTH.SOL* BTL BOTH EYES SCH (08:25)
--- NOTE | 2017-08-11 16:17 | PN ---
Progress Note Date of Service: 08/11/17 Note: MAYUR MCNEIL was visited. Nursing notes read and reviewed. Don has no complaints. Current Medications: Active Medications Generic Name Dose Route Start Last Admin Trade Name Freq PRN Reason Stop Dose Admin Acetaminophen 650 mg 08/05/17 11:15 08/10/17 14:45 Tylenol Tab* PO 650 mg Q6H PRN Administration FEVER/PAIN Bacitracin 1 applic 08/05/17 21:00 08/11/17 08:17 Bacitracin Ointment* TOPICAL Not Given BID ALLA Bisacodyl 10 mg 08/05/17 11:15 Dulcolax Supp* [place] DAILY PRN CONSTIPATION Docusate Sodium 100 mg 08/05/17 21:00 08/11/17 08:24 Colace Cap* PO 100 mg BID ALLA Administration Fesoterodine Fumarate 8 mg 08/08/17 09:00 08/11/17 08:24 Toviaz (Nf) PO 8 mg 0900 ALLA Administration Heparin Sodium (Porcine) 5,000 units 08/05/17 14:00 08/11/17 14:17 Heparin Vial(*) SUBCUT 5,000 units Q8HR ALLA Administration Latanoprost 1 drop 08/06/17 21:00 08/10/17 20:10 Xalatan 0.005%* BOTH EYES 1 drop BEDTIME ALLA Administration Levothyroxine Sodium 200 mcg 08/06/17 06:00 08/11/17 06:34 Synthroid Tab* PO 200 mcg DAILY@0600 ALLA Administration Lisinopril 10 mg 08/06/17 09:00 08/11/17 08:24 Prinivil Tab* PO 10 mg DAILY ALLA Administration Magnesium Hydroxide 30 ml 08/05/17 11:15 Milk Of Magnesia Liq* PO Q6H PRN CONSTIPATION Omeprazole 20 mg 08/06/17 06:00 08/11/17 06:34 Prilosec Cap* PO 20 mg 0600 ALLA Administration Senna 2 tab 08/05/17 11:15 08/09/17 20:46 Senokot Tab* PO 2 tab BEDTIME PRN Administration CONSTIPATION Timolol Maleate 1 drop 08/06/17 09:00 08/11/17 08:25 Timoptic 0.5% Opth* BOTH EYES 1 drop DAILY ALLA Administration Tramadol HCl 50 mg 08/05/17 11:23 08/10/17 19:57 Ultram* PO 50 mg Q6H PRN Administration PAIN - MODERATE Vital Signs: Vital Signs Temp Pulse Resp BP Pulse Ox 98.8 F 77 18 144/53 98 08/11/17 06:32 08/11/17 06:32 08/11/17 06:32 08/11/17 06:32 08/11/17 06:32 Exam: LUNGS: Clear HEART: Regular rhythm ABDOMEN: Soft EXTREMITIES: Right ankle in splint. Able to move toes NEUROLOGIC: alert and oriented. Moves all 4 extremities. Assessment/Plan: 1. Right medial malleolar fracture, distal fibular fracture, S/P internal fixation: NWB RLE. PT/OT. Ortho follow up 2. CKD, Stage 3: stable 3. Hypothyroidism: Synthroid 4. Glaucoma: Eye drops 5. DVT Prophylaxis: Heparin S/Q 6. Advanced directives: Full code. is HCP 08/11/17 16:17
[2017-08-11] MEDS: Latanoprost 0.005%* 2.5 ml BTL BOTH EYES SCH (21:04)
[2017-08-11] MEDS: traMADol TAB* 50 MG PO PRN (21:04)
[2017-08-12] MEDS: Levothyroxine TAB* 100 MCG TAB PO SCH (05:39)
[2017-08-12] MEDS: Omeprazole CAP* 20 MG PO SCH (05:39)
[2017-08-12] MEDS: Heparin VIAL(*) 5000 UNITS/ML VIAL (FIVE THOUSAND) SUBCUT SCH ×3 (05:39→21:21)
[2017-08-12] MEDS: Docusate CAP* 100 MG PO SCH ×2 (07:30→21:22)
[2017-08-12] MEDS: Lisinopril TAB* 10 MG PO SCH (07:30)
[2017-08-12] MEDS: Timolol 0.5% OPTH.SOL* BTL BOTH EYES SCH (07:30)
[2017-08-12] MEDS: FESOTERODINE 8 MG PO SCH (07:30)
[2017-08-12] MEDS: Bacitracin OINTMENT* 0.5% 0.5 oz TUBE TOPICAL SCH ×2 (07:32→21:22)
--- NOTE | 2017-08-12 12:37 | PMRUTEAM ---
PMRU: Team Meeting Current Status: Nursing: Current Status Skin Deviations [Left Lower Abrasion Leg] Skin Deviations [Right Leg] Other Skin Deviations [Back] Other Skin Deviation Description [ upper leg JU. optifoam gentle intact to lower Left Lower Leg] abrasion Skin Deviation Description [ cast intact Right Leg] Skin Deviation Description [ red bumps Back] Bladder Current Status uses urinal Bowel Current Status bowel meds given Nutrition Current Status appetite great Medication Current Status nothing given for pain this am. needs reinforcement Physical Therapy: Current Status Bed Mobility Assistance Supervision Transfer Moblility Assistance Max Assist Transfer/Bed Mobility Celia Lift Recommended Devices Ambulation Assistance Unable Ambulation Assistive Devices Straight Cane Stairs Assistance Contact Guard Assist Stairs Recommended Devices Two Rails Number of Stairs 3 Manual Wheelchair Control/ Bilateral UE's Technique Wheelchair Propulsion Ability Standby Assistance Wheelchair Distance (ft) 150 Objective Comments therapist fit pt in new w/c with elevating leg rest, extending RLE and having pt's leg rest of calf pad but keeping foot rest out of the way in order for pt to maintain NWB to R LE. Therapist educated and trained pt in lifting R LE on/off calf pad and in w/c propulsion throughout hallways , making multiple turns and turning in narrow spaces. Pt requires occasional VCs for reaching back and fully pushing through with bilateral UEs on w/c rim. Occupational Therapy: Current Status Upper Body Dressing Supervision Lower Body Dressing Max Asst Bathing Mod Assist Toileting Total Assist,2 Person Assist Toilet Transfer Total Assist,2 Person Assist Shower Transfer Total Assist,2 Person Assist Eating Independent Rec Therapy: Current Status Summary of Assessment and RT assessment complete and pt. is aware of RT Clinical Impression services. Pt. has been very engaged and talkative during leisure visits. Pt. identified with many interests and active involvement in them prior to admission. Treatment Goals Pt. will engage in leisure activities while on the unit. Treatment Plan Provide RT services and encourage involvement. Social Work: Current Status Discharge Plan return home with home care svs and family support Potential for Family Training pt's is involved and supportive Anticipated Discharge Home Destination Discharge With home care svs and family support Nutrition: Current Status Monitoring pt consuming 100% of regular diet. Skin is intact ; low risk for breakdown. BMs 08/09, 08/10; Colace given daily. Senna last given 08/09. Full nutrition assessment planned today per NDS protocol. Initial/tentative goals as outlined below. Goals: Physical Therapy: Initial Goals Bed Mobility Assistance Independent Transfer Mobility Assistance Independent Transfer/Bed Mobility Rolling Walker Recommended Devices Ambulation Independent Ambulation Recommended Devices Rolling Walker Ambulation Distance 10 Wheelchair Propulsion Ability Independent Wheelchair Distance (ft) 300 Physical Therapy: Updated Goals Transfer/Bed Mobility Celia Lift Recommended Devices Occupational Therapy: Initial Goals Goals to be Completed in (Days 21 ) Upper Body Bathing Routine Supervision/Set Up Lower Body Bathing Routine Minimal Contact Assist Upper Body Dressing Routine Supervision/Set Up Lower Body Dressing Routine Moderate Assist Toilet Hygeine and Clothing Minimal Contact Assist Management Routine Toilet Transfer Routine Supervision/Set Up Step-In Shower Transfer Supervision/Set Up Routine Functional Transfers for ADL Supervision/Set Up Grooming Routine Independent Feeding Routine Independent Nursing: Goals Bladder Goal indepedent Bowel Goal independent Nutrition Goal 100% of all meals Medication Goal independent Nutrition: Goals Intervention Goals 1. adequate po intake to support lean body mass, hydration, and stable wt 2. achieve and maintain regular bowel pattern without constipation or diarrhea 3. skin will remain intact without s/sx breakdown Social Work: Goals Discharge Plan return home with home care svs and family support Potential for Family Training pt's is involved and supportive Anticipated Discharge Home Destination Discharge With home care svs and family support Care Plan: Care Plan ADL's - Improve/Maintain Start: 08/05/17 15:30 Freq: DAILY@1200 Status: Active Target: Protocol: Activity Type Activity Date Activity User E-Sign Co-Sign Detail Recorded Client Recorded Date Recorded By Document 08/07/17 10:31 [id number] 08/07/17 10:31 [id number] 08/07/17 10:31 PMRU Outcome: ADL's/ADL Transfers Orders/Interventions Occupational Therapy Evaluation & Treatment Communication Tool in Patient Room Device Yes Address Deficits Secondary To: right ankle fx Patient to receive OT 5x/wk for 60-120 Therex min/day Self Care Management Group Therapy UE/LE ADL's with Assist Yes: setup-modA ADL Transfers with Assist Yes: supervision Toileting: Transfers,Clothing Management Yes: ,Hygeine w/Assist supervision transfer, Tina Progression Toward Outcome/Goals Progressing Outcome/Goals Met Pt participated well in ADL treatment session, able to complete pushups in recliner chair and maintain WB status for assist with hiking pants once in recliner chair. Discharge Planning - Improve/Maintain Start: 08/05/17 22:21 Freq: DAILY@1200 Status: Active Target: Protocol: Activity Type Activity Date Activity User E-Sign Co-Sign Detail Recorded Client Recorded Date Recorded By Document 08/11/17 01:19 [id number] 08/11/17 01:19 [id number] 08/11/17 01:19 PMRU Outcome: Discharge Planning Update Patient Family No Outcome/Goals Demonstrates Understanding of Discharge Plan Progression Toward Outcome/Goals Progressing Education-Improve/Maintain Start: 08/05/17 22:21 Freq: DAILY@1200 Status: Active Target: Protocol: Activity Type Activity Date Activity User E-Sign Co-Sign Detail Recorded Client Recorded Date Recorded By Document 08/11/17 13:13 [id number] 08/11/17 13:15 [id number] 08/11/17 13:13 PMRU Outcome: Education Outcome/Goals Demonstrates Skills Encourage Questions Progression Toward Outcome/Goals Progressing Mobility- Improve/Maintain Start: 08/05/17 18:43 Freq: DAILY@1200 Status: Active Target: Protocol: Activity Type Activity Date Activity User E-Sign Co-Sign Detail Recorded Client Recorded Date Recorded By Document 08/08/17 16:04 [id number] 08/08/17 16:04 [id number] 08/08/17 16:04 PMRU Outcome: Mobility Physical Therapy Evaluation and Yes Treatment Activity OOB with Assistance Yes NWB Yes: RLE Device Yes Assistance Yes Patient to be seen 5x/wk for 60-120 min/ Therex day for: Mobility Training Gait Training W/C Mobility Balance Outcome/Goals Maintain/ Achieve Baseline Mobility Status Improve Mobility Status Demonstrates Proper Use of Assistive Devices Free from Complications of Immobility Progression Toward Outcome/Goals Progressing Bed Mobility Yes: independent Transfers Yes: independent with RW Gait x ft Yes: independent 10' with RW W/C Mobility x ft Yes: independent to community destinations ( 300) Pain/Comfort- Improve/Maintain Start: 08/05/17 22:21 Freq: DAILY@1200 Status: Active Target: Protocol: Activity Type Activity Date Activity User E-Sign Co-Sign Detail Recorded Client Recorded Date Recorded By Document 08/11/17 13:13 [id number] 08/11/17 13:15 [id number] 08/11/17 13:13 PMRU Outcome: Pain/Comfort Outcome/Goals Demonstrates Knowledge and Use of Available Comfort Measures Achieves Acceptable Comfort/Pain Level as Determined by Patient/Condit Maintain Comfort Level Allowing Patient to Fully Participate in Rehab Progression Toward Outcome/Goals Progressing Outcome/Goals Met Comment denies pain Safety- Improve/Maintain Start: 08/05/17 22:21 Freq: DAILY@1200 Status: Active Target: Protocol: Activity Type Activity Date Activity User E-Sign Co-Sign Detail Recorded Client Recorded Date Recorded By Document 08/11/17 13:13 [id number] 08/11/17 13:15 [id number] 08/11/17 13:13 PMRU Outcome: Safety Outcome/Goals Remain Free of Injury or Harm Cooperates with Safety Measures for Least Restrictive Environment Prevent Falls/ Injury Progression Toward Outcome/Goals Progressing Skin- Improve/Maintain Start: 08/05/17 22:21 Freq: DAILY@1200 Status: Active Target: Protocol: Activity Type Activity Date Activity User E-Sign Co-Sign Detail Recorded Client Recorded Date Recorded By Document 08/11/17 13:13 [id number] 08/11/17 13:15 [id number] 08/11/17 13:13 PMRU Outcome: Skin Skin Risk Level Medium Outcome/Goals Maintain/ Improve Skin Intergrity Free from Decubitus Maintain/ Improve Wound Status Surgical Incisions Healing Progression Toward Outcome/Goals Progressing Medicine Note: Length of Stay: 2 weeks Anticipated Discharge Destination: Home Tentative Discharge Date: 2 weeks Discharged to: home
--- NOTE | 2017-08-12 16:50 | PN ---
Progress Note Date of Service: 08/12/17 Note: MAYUR MCNEIL was visited. Therapy notes read and reviewed. He was discussed in interdisciplinary team rounds. Splint is a little loose. Asked ortho to see. Current Medications: Active Medications Generic Name Dose Route Start Last Admin Trade Name Freq PRN Reason Stop Dose Admin Acetaminophen 650 mg 08/05/17 11:15 08/10/17 14:45 Tylenol Tab* PO 650 mg Q6H PRN Administration FEVER/PAIN Bacitracin 1 applic 08/05/17 21:00 08/12/17 07:32 Bacitracin Ointment* TOPICAL Not Given BID ALLA Bisacodyl 10 mg 08/05/17 11:15 Dulcolax Supp* [place] DAILY PRN CONSTIPATION Docusate Sodium 100 mg 08/05/17 21:00 08/12/17 07:30 Colace Cap* PO 100 mg BID ALLA Administration Fesoterodine Fumarate 8 mg 08/08/17 09:00 08/12/17 07:30 Toviaz (Nf) PO 8 mg 0900 ALLA Administration Heparin Sodium (Porcine) 5,000 units 08/05/17 14:00 08/12/17 14:47 Heparin Vial(*) SUBCUT 5,000 units Q8HR ALLA Administration Latanoprost 1 drop 08/06/17 21:00 08/11/17 21:04 Xalatan 0.005%* BOTH EYES 1 drop BEDTIME ALLA Administration Levothyroxine Sodium 200 mcg 08/06/17 06:00 08/12/17 05:39 Synthroid Tab* PO 200 mcg DAILY@0600 ALLA Administration Lisinopril 10 mg 08/06/17 09:00 08/12/17 07:30 Prinivil Tab* PO 10 mg DAILY ALLA Administration Magnesium Hydroxide 30 ml 08/05/17 11:15 Milk Of Magnesia Liq* PO Q6H PRN CONSTIPATION Omeprazole 20 mg 08/06/17 06:00 08/12/17 05:39 Prilosec Cap* PO 20 mg 0600 ALLA Administration Senna 2 tab 08/05/17 11:15 08/09/17 20:46 Senokot Tab* PO 2 tab BEDTIME PRN Administration CONSTIPATION Timolol Maleate 1 drop 08/06/17 09:00 08/12/17 07:30 Timoptic 0.5% Opth* BOTH EYES 1 drop DAILY ALLA Administration Vital Signs: Vital Signs Temp Pulse Resp BP Pulse Ox 98.0 F 61 16 129/49 100 08/12/17 15:53 08/12/17 15:53 08/12/17 15:53 08/12/17 15:53 08/12/17 15:53 Exam: LUNGS: Clear HEART: Regular rhythm ABDOMEN: Soft EXTREMITIES: Right ankle in splint. Able to move toes NEUROLOGIC: alert and oriented. Moves all 4 extremities. Assessment/Plan: 1. Right medial malleolar fracture, distal fibular fracture, S/P internal fixation: NWB RLE. PT/OT. Ortho follow up may change splint when gabe come out 2. CKD, Stage 3: stable 3. Hypothyroidism: Synthroid 4. Glaucoma: Eye drops 5. DVT Prophylaxis: Heparin S/Q 6. Advanced directives: Full code. is HCP 08/12/17 16:50
[2017-08-12] MEDS: Acetaminophen TAB* 325 MG PO PRN (21:21)
[2017-08-12] MEDS: Latanoprost 0.005%* 2.5 ml BTL BOTH EYES SCH (21:22)
[2017-08-13] MEDS: Omeprazole CAP* 20 MG PO SCH (05:49)
[2017-08-13] MEDS: Levothyroxine TAB* 100 MCG TAB PO SCH (05:49)
[2017-08-13] MEDS: Heparin VIAL(*) 5000 UNITS/ML VIAL (FIVE THOUSAND) SUBCUT SCH ×3 (05:50→22:02)
[2017-08-13 07:31] LABS: ABS Basophils 0 10^3/ul (0-0.2); ABS Eosinophils 0.2 10^3/ul (0-0.6); ABS Monocytes 0.3 10^3/ul (0-0.8); ABS Nucleated RBC 0 10^3/ul; Hematocrit 36 % (42-52); Hemoglobin 12.2 g/dl (14.0-18.0); Lymphocyte % 35.2 % (25-47); Mean Corpuscular HGB Conc 34 g/dl (31-36); Mean Corpuscular Hemoglobin 30 pg (27-31); Mean Corpuscular Volume 88 fL (80-94); Mean Platelet Volume 7.3 um3 (7.4-10.4); Nucleated Red Blood Cells % 0.1; Platelet Count 174 10^3/ul (150-450); Red Blood Count 4.05 10^6/ul (4.0-5.4); Red Cell Distribution Width 14 % (10.5-15); White Blood Count 5.6 10^3/ul (3.5-10.8)
[2017-08-13] MEDS: Timolol 0.5% OPTH.SOL* BTL BOTH EYES SCH (09:10)
[2017-08-13] MEDS: Bacitracin OINTMENT* 0.5% 0.5 oz TUBE TOPICAL SCH ×2 (09:10→22:03)
[2017-08-13] MEDS: Lisinopril TAB* 10 MG PO SCH (09:10)
[2017-08-13] MEDS: Docusate CAP* 100 MG PO SCH ×2 (09:10→22:02)
[2017-08-13] MEDS: FESOTERODINE 8 MG PO SCH (09:10)
--- NOTE | 2017-08-13 20:28 | PN ---
Progress Note Date of Service: 08/13/17 Note: MAYUR MCNEIL was visited. Therapy notes read and reviewed. He has a lot of trouble remembering he is NWB on his Right foot and ankle. May not be able to make it home as a result Current Medications: Active Medications Generic Name Dose Route Start Last Admin Trade Name Freq PRN Reason Stop Dose Admin Acetaminophen 650 mg 08/05/17 11:15 08/12/17 21:21 Tylenol Tab* PO 650 mg Q6H PRN Administration FEVER/PAIN Bacitracin 1 applic 08/05/17 21:00 08/13/17 09:10 Bacitracin Ointment* TOPICAL Not Given BID ALLA Bisacodyl 10 mg 08/05/17 11:15 Dulcolax Supp* [place] DAILY PRN CONSTIPATION Docusate Sodium 100 mg 08/05/17 21:00 08/13/17 09:10 Colace Cap* PO 100 mg BID ALLA Administration Fesoterodine Fumarate 8 mg 08/08/17 09:00 08/13/17 09:10 Toviaz (Nf) PO 8 mg 0900 ALLA Administration Heparin Sodium (Porcine) 5,000 units 08/05/17 14:00 08/13/17 14:19 Heparin Vial(*) SUBCUT 5,000 units Q8HR ALLA Administration Latanoprost 1 drop 08/06/17 21:00 08/12/17 21:22 Xalatan 0.005%* BOTH EYES 1 drop BEDTIME ALLA Administration Levothyroxine Sodium 200 mcg 08/06/17 06:00 08/13/17 05:49 Synthroid Tab* PO 200 mcg DAILY@0600 ALLA Administration Lisinopril 10 mg 08/06/17 09:00 08/13/17 09:10 Prinivil Tab* PO 10 mg DAILY ALLA Administration Magnesium Hydroxide 30 ml 08/05/17 11:15 Milk Of Magnesia Liq* PO Q6H PRN CONSTIPATION Omeprazole 20 mg 08/06/17 06:00 08/13/17 05:49 Prilosec Cap* PO 20 mg 0600 ALLA Administration Senna 2 tab 08/05/17 11:15 08/09/17 20:46 Senokot Tab* PO 2 tab BEDTIME PRN Administration CONSTIPATION Timolol Maleate 1 drop 08/06/17 09:00 08/13/17 09:10 Timoptic 0.5% Opth* BOTH EYES 1 drop DAILY ALLA Administration Vital Signs: Vital Signs Temp Pulse Resp BP Pulse Ox 98.4 F 62 16 125/53 100 08/13/17 16:35 08/13/17 16:35 08/13/17 16:35 08/13/17 16:35 08/13/17 16:35 Lab Results: Laboratory Results - last 24 hr 08/13/17 08/13/17 07:15 07:15 WBC 5.6 RBC 4.05 Hgb 12.2 L Hct 36 L MCV 88 MCH 30 MCHC 34 RDW 14 Plt Count 174 MPV 7.3 L Neut % (Auto) 54.4 Lymph % (Auto) 35.2 [place] % (Auto) 6.2 Eos % (Auto) 4.0 Baso % (Auto) 0.2 Absolute Neuts (auto) 3.0 Absolute Lymphs (auto) 2.0 Absolute Monos (auto) 0.3 Absolute Eos (auto) 0.2 Absolute Basos (auto) 0 Absolute Nucleated RBC 0 Nucleated RBC % 0.1 Sodium 141 Potassium 4.4 Chloride 111 Carbon Dioxide 26 Anion Gap 4 BUN 29 H Creatinine 1.31 H Est GFR ( Amer) 66.9 Est GFR (Non-Af Amer) 52.0 BUN/Creatinine Ratio 22.1 H Glucose 119 H Calcium 9.2 Total Bilirubin 0.40 AST 13 ALT 16 Alkaline Phosphatase 56 Total Protein 5.7 L Albumin 3.3 Globulin 2.4 Albumin/Globulin Ratio 1.4 Exam: LUNGS: Clear HEART: Regular rhythm ABDOMEN: Soft EXTREMITIES: Right ankle in splint. Able to move toes NEUROLOGIC: alert and oriented. Moves all 4 extremities. Assessment/Plan: 1. Right medial malleolar fracture, distal fibular fracture, S/P internal fixation: NWB RLE. PT/OT. Ortho follow up may change splint when gabe come out 2. CKD, Stage 3: stable 3. Hypothyroidism: Synthroid 4. Glaucoma: Eye drops 5. DVT Prophylaxis: Heparin S/Q 6. Advanced directives: Full code. is HCP 08/13/17 20:28
[2017-08-13] MEDS: Acetaminophen TAB* 325 MG PO PRN (22:01)
[2017-08-13] MEDS: Latanoprost 0.005%* 2.5 ml BTL BOTH EYES SCH (22:02)
[2017-08-14] MEDS: Levothyroxine TAB* 100 MCG TAB PO SCH (05:40)
[2017-08-14] MEDS: Omeprazole CAP* 20 MG PO SCH (05:40)
[2017-08-14] MEDS: Heparin VIAL(*) 5000 UNITS/ML VIAL (FIVE THOUSAND) SUBCUT SCH ×3 (05:41→21:34)
[2017-08-14] MEDS: Docusate CAP* 100 MG PO SCH ×2 (08:06→20:13)
[2017-08-14] MEDS: Lisinopril TAB* 10 MG PO SCH (08:06)
[2017-08-14] MEDS: FESOTERODINE 8 MG PO SCH (08:07)
[2017-08-14] MEDS: Timolol 0.5% OPTH.SOL* BTL BOTH EYES SCH (08:07)
[2017-08-14] MEDS: Bacitracin OINTMENT* 0.5% 0.5 oz TUBE TOPICAL SCH ×2 (08:07→20:16)
[2017-08-14] MEDS: Acetaminophen TAB* 325 MG PO PRN ×2 (09:45→20:12)
--- NOTE | 2017-08-14 19:33 | PN ---
Progress Note Date of Service: 08/14/17 Note: MAYUR MCNEIL was visited. Therapy notes read and reviewed. I met with Don to discuss alternative discharge options if he can't maintain NWB status. Will discuss with interdisciplinary team tomorrow. Current Medications: Active Medications Generic Name Dose Route Start Last Admin Trade Name Freq PRN Reason Stop Dose Admin Acetaminophen 650 mg 08/05/17 11:15 08/14/17 09:45 Tylenol Tab* PO 650 mg Q6H PRN Administration FEVER/PAIN Bacitracin 1 applic 08/05/17 21:00 08/14/17 08:07 Bacitracin Ointment* TOPICAL 1 applic BID ALLA Administration Bisacodyl 10 mg 08/05/17 11:15 Dulcolax Supp* [place] DAILY PRN CONSTIPATION Docusate Sodium 100 mg 08/05/17 21:00 08/14/17 08:06 Colace Cap* PO 100 mg BID ALLA Administration Fesoterodine Fumarate 8 mg 08/08/17 09:00 08/14/17 08:07 Toviaz (Nf) PO 8 mg 0900 ALLA Administration Heparin Sodium (Porcine) 5,000 units 08/05/17 14:00 08/14/17 14:06 Heparin Vial(*) SUBCUT 5,000 units Q8HR ALLA Administration Latanoprost 1 drop 08/06/17 21:00 08/13/17 22:02 Xalatan 0.005%* BOTH EYES 1 drop BEDTIME ALLA Administration Levothyroxine Sodium 200 mcg 08/06/17 06:00 08/14/17 05:40 Synthroid Tab* PO 200 mcg DAILY@0600 ALLA Administration Lisinopril 10 mg 08/06/17 09:00 08/14/17 08:06 Prinivil Tab* PO 10 mg DAILY ALLA Administration Magnesium Hydroxide 30 ml 08/05/17 11:15 Milk Of Magnesia Liq* PO Q6H PRN CONSTIPATION Omeprazole 20 mg 08/06/17 06:00 08/14/17 05:40 Prilosec Cap* PO 20 mg 0600 ALLA Administration Senna 2 tab 08/05/17 11:15 08/09/17 20:46 Senokot Tab* PO 2 tab BEDTIME PRN Administration CONSTIPATION Timolol Maleate 1 drop 08/06/17 09:00 08/14/17 08:07 Timoptic 0.5% Opth* BOTH EYES 1 drop DAILY ALLA Administration Vital Signs: Vital Signs Temp Pulse Resp BP Pulse Ox 98.3 F 59 16 137/60 100 08/14/17 16:02 08/14/17 16:02 08/14/17 16:02 08/14/17 16:02 08/14/17 16:26 Exam: LUNGS: Clear HEART: Regular rhythm ABDOMEN: Soft EXTREMITIES: Right ankle in splint. Able to move toes NEUROLOGIC: alert and oriented. Moves all 4 extremities. Assessment/Plan: 1. Right medial malleolar fracture, distal fibular fracture, S/P internal fixation: NWB RLE. PT/OT. Ortho follow up may change splint when gabe come out 2. CKD, Stage 3: stable 3. Hypothyroidism: Synthroid 4. Glaucoma: Eye drops 5. DVT Prophylaxis: Heparin S/Q 6. Advanced directives: Full code. is HCP 08/14/17 19:33
[2017-08-14] MEDS: Latanoprost 0.005%* 2.5 ml BTL BOTH EYES SCH (20:12)
[2017-08-15] MEDS: Levothyroxine TAB* 100 MCG TAB PO SCH (05:37)
[2017-08-15] MEDS: Omeprazole CAP* 20 MG PO SCH (05:37)
[2017-08-15] MEDS: Heparin VIAL(*) 5000 UNITS/ML VIAL (FIVE THOUSAND) SUBCUT SCH ×3 (05:38→21:26)
[2017-08-15] MEDS: Bacitracin OINTMENT* 0.5% 0.5 oz TUBE TOPICAL SCH (07:25)
[2017-08-15] MEDS: Lisinopril TAB* 10 MG PO SCH (07:29)
[2017-08-15] MEDS: Timolol 0.5% OPTH.SOL* BTL BOTH EYES SCH (07:29)
[2017-08-15] MEDS: Docusate CAP* 100 MG PO SCH ×2 (07:30→20:45)
[2017-08-15] MEDS: FESOTERODINE 8 MG PO SCH (07:30)
[2017-08-15] MEDS: Acetaminophen TAB* 325 MG PO PRN ×3 (09:07→20:45)
--- NOTE | 2017-08-15 09:53 | PN ---
Progress Note Date of Service: 08/15/17 Note: MAYUR MCNEIL was visited. Nursing and therapy notes read and reviewed. No chest pain, shortness of breath or abdominal pain. Wants to know when gabe will come out. Current Medications: Active Medications Generic Name Dose Route Start Last Admin Trade Name Freq PRN Reason Stop Dose Admin Acetaminophen 650 mg 08/05/17 11:15 08/15/17 09:07 Tylenol Tab* PO 650 mg Q6H PRN Administration FEVER/PAIN Bacitracin 1 applic 08/05/17 21:00 08/15/17 07:25 Bacitracin Ointment* TOPICAL Not Given BID [facility] Bisacodyl 10 mg 08/05/17 11:15 [address]ax Supp* CT DAILY PRN CONSTIPATION Docusate Sodium 100 mg 08/05/17 21:00 08/15/17 07:30 Colace Cap* PO Not Given BID ALLA Fesoterodine Fumarate 8 mg 08/08/17 09:00 08/15/17 07:30 Toviaz (Nf) PO 8 mg 0900 [facility] Administration Heparin Sodium (Porcine) 5,000 units 08/05/17 14:00 08/15/17 05:38 Heparin Vial(*) SUBCUT 5,000 units Q8HR ALLA Administration Latanoprost 1 drop 08/06/17 21:00 08/14/17 20:12 Xalatan 0.005%* BOTH EYES 1 drop BEDTIME ALLA Administration Levothyroxine Sodium 200 mcg 08/06/17 06:00 08/15/17 05:37 Synthroid Tab* PO 200 mcg DAILY@0600 ALLA Administration Lisinopril 10 mg 08/06/17 09:00 08/15/17 07:29 Prinivil Tab* PO 10 mg DAILY ALLA Administration Magnesium Hydroxide 30 ml 08/05/17 11:15 Milk Of Magnesia Liq* PO Q6H PRN CONSTIPATION Omeprazole 20 mg 08/06/17 06:00 08/15/17 05:37 Prilosec Cap* PO 20 mg 0600 ALLA Administration Senna 2 tab 08/05/17 11:15 08/09/17 20:46 Senokot Tab* PO 2 tab BEDTIME PRN Administration CONSTIPATION Timolol Maleate 1 drop 08/06/17 09:00 08/15/17 07:29 Timoptic 0.5% Opth* BOTH EYES 1 drop DAILY ALLA Administration Vital Signs: Vital Signs Temp Pulse Resp BP Pulse Ox 98.7 F 88 20 138/79 98 08/15/17 05:39 08/15/17 05:39 08/15/17 05:39 08/15/17 05:39 08/15/17 05:39 Exam: GEN: no acute distress. alert and appropriate. LUNGS: Clear to auscultation bilaterally. HEART: Regular rate and rhythm ABDOMEN: + bowel sounds, soft, non-tender and non-distended. EXTREMITIES: Right ankle in splint. No edema. NEUROLOGIC: Motor 5/5 in left lower extremity with normal sensation. Right lower extremity with 5/5 motor at toes DF and normal sensation. Assessment/Plan: 86yo man s/p bimalleolar fracture and ORIF 1. Right medial malleolar fracture, distal fibular fracture, S/P internal fixation: NWB RLE. PT/OT. I spoke to Dr. Pereyra since Dr. Sanderson is off today and the weekend. Today is POD #14. Either ortho will see today or Friday for staple removal and splint adjustment if needed. Dr. Sanderson is back on Friday. 2. CKD, Stage 3: stable 3. Hypothyroidism: Synthroid 4. Glaucoma: Eye drops 5. DVT Prophylaxis: Heparin S/Q 6. Advanced directives: Full code. is HCP 7. Estimated LOS: discharged planned for 08/26, but will discuss with team his progress. He has had issues with remembering NWB precautions and may need subacute rehab. Dr. Hicks and SW also initiated discussion yesterday with patient. 08/15/17 09:49
[2017-08-15] MEDS: Latanoprost 0.005%* 2.5 ml BTL BOTH EYES SCH (20:45)
[2017-08-16] MEDS: Levothyroxine TAB* 100 MCG TAB PO SCH (05:39)
[2017-08-16] MEDS: Omeprazole CAP* 20 MG PO SCH (05:39)
[2017-08-16] MEDS: Heparin VIAL(*) 5000 UNITS/ML VIAL (FIVE THOUSAND) SUBCUT SCH ×3 (05:39→21:00)
[2017-08-16] MEDS: Lisinopril TAB* 10 MG PO SCH (09:03)
[2017-08-16] MEDS: Timolol 0.5% OPTH.SOL* BTL BOTH EYES SCH (09:04)
[2017-08-16] MEDS: FESOTERODINE 8 MG PO SCH (09:04)
[2017-08-16] MEDS: Docusate CAP* 100 MG PO SCH ×2 (09:06→20:47)
[2017-08-16] MEDS: Acetaminophen TAB* 325 MG PO PRN ×2 (09:09→21:05)
--- NOTE | 2017-08-16 10:55 | PN ---
Progress Note Date of Service: 08/16/17 Note: MAYUR MCNEIL was visited. Nursing and therapy notes read and reviewed. SW met with pt and yesterday after we discussed his case at team meeting and decided he would benefit from subacute rehabilitation. He continues to have difficulty maintaining NWB. Current Medications: Active Medications Generic Name Dose Route Start Last Admin Trade Name Freq PRN Reason Stop Dose Admin Acetaminophen 650 mg 08/05/17 11:15 08/16/17 09:09 Tylenol Tab* PO 650 mg Q6H PRN Administration FEVER/PAIN Bisacodyl 10 mg 08/05/17 11:15 Dulcolax Supp* [place] DAILY PRN CONSTIPATION Docusate Sodium 100 mg 08/05/17 21:00 08/16/17 09:06 Colace Cap* PO Not Given BID ALLA Fesoterodine Fumarate 8 mg 08/08/17 09:00 08/16/17 09:04 Toviaz (Nf) PO 8 mg 0900 ALLA Administration Heparin Sodium (Porcine) 5,000 units 08/05/17 14:00 08/16/17 05:39 Heparin Vial(*) SUBCUT 5,000 units Q8HR ALLA Administration Latanoprost 1 drop 08/06/17 21:00 08/15/17 20:45 Xalatan 0.005%* BOTH EYES 1 drop BEDTIME ALLA Administration Levothyroxine Sodium 200 mcg 08/06/17 06:00 08/16/17 05:39 Synthroid Tab* PO 200 mcg DAILY@0600 ALLA Administration Lisinopril 10 mg 08/06/17 09:00 08/16/17 09:03 Prinivil Tab* PO 10 mg DAILY ALLA Administration Magnesium Hydroxide 30 ml 08/05/17 11:15 Milk Of Magnesia Liq* PO Q6H PRN CONSTIPATION Omeprazole 20 mg 08/06/17 06:00 08/16/17 05:39 Prilosec Cap* PO 20 mg 0600 ALLA Administration Senna 2 tab 08/05/17 11:15 08/09/17 20:46 Senokot Tab* PO 2 tab BEDTIME PRN Administration CONSTIPATION Timolol Maleate 1 drop 08/06/17 09:00 08/16/17 09:04 Timoptic 0.5% Opth* BOTH EYES 1 drop DAILY ALLA Administration Vital Signs: Vital Signs Temp Pulse Resp BP Pulse Ox 98.9 F 77 18 133/54 99 08/16/17 05:54 08/16/17 05:54 08/16/17 05:54 08/16/17 05:54 08/16/17 09:00 Exam: GEN: no acute distress. alert and appropriate. LUNGS: Clear to auscultation bilaterally. HEART: Regular rate and rhythm ABDOMEN: + bowel sounds, soft, non-tender and non-distended. EXTREMITIES: Right ankle in splint. No edema. NEUROLOGIC: Motor 5/5 in left lower extremity with normal sensation. Right lower extremity with 5/5 motor at toes DF and normal sensation. Assessment/Plan: 86yo man s/p bimalleolar fracture and ORIF 1. Right medial malleolar fracture, distal fibular fracture, S/P internal fixation: NWB RLE. PT/OT. I spoke to Dr. Pereyra on 08/15 Dr. Sanderson was off until Friday. Today is POD #15. She have ortho f/u Friday for staple removal and splint adjustment if needed. 2. CKD, Stage 3: stable 3. Hypothyroidism: Synthroid 4. Glaucoma: Eye drops 5. DVT Prophylaxis: Heparin S/Q 6. Advanced directives: Full code. is HCP 7. Estimated LOS: looking into subacute rehab. He prefers [facility] 08/16/17 10:53
[2017-08-16] MEDS: Latanoprost 0.005%* 2.5 ml BTL BOTH EYES SCH (21:00)
[2017-08-17] MEDS: Levothyroxine TAB* 100 MCG TAB PO SCH (05:54)
[2017-08-17] MEDS: Heparin VIAL(*) 5000 UNITS/ML VIAL (FIVE THOUSAND) SUBCUT SCH ×3 (05:55→20:43)
[2017-08-17] MEDS: Omeprazole CAP* 20 MG PO SCH (05:55)
[2017-08-17] MEDS: Acetaminophen TAB* 325 MG PO PRN (05:58)
[2017-08-17] MEDS: FESOTERODINE 8 MG PO SCH (07:14)
[2017-08-17] MEDS: Timolol 0.5% OPTH.SOL* BTL BOTH EYES SCH (07:14)
[2017-08-17] MEDS: Docusate CAP* 100 MG PO SCH ×2 (07:14→20:43)
[2017-08-17] MEDS: Lisinopril TAB* 10 MG PO SCH (07:14)
--- NOTE | 2017-08-17 09:53 | PN ---
Progress Note Date of Service: 08/17/17 Note: MAYUR MCNEIL was visited. Nursing and therapy notes read and reviewed. No chest pain, shortness of breath or abdominal pain. No new concerns. Current Medications: Active Medications Generic Name Dose Route Start Last Admin Trade Name Freq PRN Reason Stop Dose Admin Acetaminophen 650 mg 08/05/17 11:15 08/17/17 05:58 Tylenol Tab* PO 650 mg Q6H PRN Administration FEVER/PAIN Bisacodyl 10 mg 08/05/17 11:15 Dulcolax Supp* AR DAILY PRN CONSTIPATION Docusate Sodium 100 mg 08/05/17 21:00 08/17/17 07:14 Colace Cap* PO Not Given BID ALLA Fesoterodine Fumarate 8 mg 08/08/17 09:00 08/17/17 07:14 Toviaz (Nf) PO 8 mg 0900 ALLA Administration Heparin Sodium (Porcine) 5,000 units 08/05/17 14:00 08/17/17 05:55 Heparin Vial(*) SUBCUT 5,000 units Q8HR ALLA Administration Latanoprost 1 drop 08/06/17 21:00 08/16/17 21:00 Xalatan 0.005%* BOTH EYES 1 drop BEDTIME ALLA Administration Levothyroxine Sodium 200 mcg 08/06/17 06:00 08/17/17 05:54 Synthroid Tab* PO 200 mcg DAILY@0600 ALLA Administration Lisinopril 10 mg 08/06/17 09:00 08/17/17 07:14 Prinivil Tab* PO 10 mg DAILY ALLA Administration Magnesium Hydroxide 30 ml 08/05/17 11:15 Milk Of Magnesia Liq* PO Q6H PRN CONSTIPATION Omeprazole 20 mg 08/06/17 06:00 08/17/17 05:55 Prilosec Cap* PO 20 mg 0600 ALLA Administration Senna 2 tab 08/05/17 11:15 08/09/17 20:46 Senokot Tab* PO 2 tab BEDTIME PRN Administration CONSTIPATION Timolol Maleate 1 drop 08/06/17 09:00 08/17/17 07:14 Timoptic 0.5% Opth* BOTH EYES 1 drop DAILY ALLA Administration Vital Signs: Vital Signs Temp Pulse Resp BP Pulse Ox 98.2 F 78 18 136/81 99 08/17/17 05:33 08/17/17 05:33 08/17/17 05:58 08/17/17 05:33 08/17/17 07:05 Exam: GEN: no acute distress. alert and appropriate. LUNGS: Clear to auscultation bilaterally. HEART: Regular rate and rhythm ABDOMEN: + bowel sounds, soft, non-tender and non-distended. EXTREMITIES: Right ankle in splint. No edema. NEUROLOGIC: Motor 5/5 in left lower extremity with normal sensation. Right lower extremity with 5/5 motor at toes DF and normal sensation. Assessment/Plan: 86yo man s/p bimalleolar fracture and ORIF 1. Right medial malleolar fracture, distal fibular fracture, S/P internal fixation: NWB RLE. PT/OT. I spoke to Dr. Pereyra on 08/15. Dr. Sanderson off until Friday. Today is POD #16. He should have ortho f/u Friday for staple removal and splint adjustment. 2. CKD, Stage 3: stable 3. Hypothyroidism: Synthroid 4. Glaucoma: Eye drops 5. DVT Prophylaxis: Heparin S/Q 6. Advanced directives: Full code. is HCP 7. Estimated LOS: looking into subacute rehab. He prefers [facility] 08/17/17 09:52
[2017-08-17] MEDS: Latanoprost 0.005%* 2.5 ml BTL BOTH EYES SCH (20:42)
[2017-08-18] MEDS: Heparin VIAL(*) 5000 UNITS/ML VIAL (FIVE THOUSAND) SUBCUT SCH ×3 (05:55→21:17)
[2017-08-18] MEDS: Levothyroxine TAB* 100 MCG TAB PO SCH (05:55)
[2017-08-18] MEDS: Omeprazole CAP* 20 MG PO SCH (05:55)
[2017-08-18] MEDS: Docusate CAP* 100 MG PO SCH ×2 (08:28→21:17)
[2017-08-18] MEDS: Timolol 0.5% OPTH.SOL* BTL BOTH EYES SCH (08:28)
[2017-08-18] MEDS: Lisinopril TAB* 10 MG PO SCH (08:28)
[2017-08-18] MEDS: FESOTERODINE 8 MG PO SCH (08:29)
--- NOTE | 2017-08-18 14:43 | PN ---
PROGRESS NOTE: DATE OF SERVICE: 08/18/17 SUBJECTIVE: Mauro has pretty much failed PT in terms of being nonweightbearing, so the plan at this point is to transfer to rehab. I would estimate we would let him bear weight partially in about 2 to 3 weeks' time. At that juncture, he will need an x-ray. His splint is removed and the wound is healing nicely. Daniele are removed and a new splint applied. [id number]/[facility] #: [id number] NIKITA
[2017-08-18] MEDS: Acetaminophen TAB* 325 MG PO PRN ×2 (15:38→21:16)
--- NOTE | 2017-08-18 16:29 | PN ---
Progress Note Date of Service: 08/18/17 Note: MAYUR MCNEIL was visited. Therapy notes read and reviewed. Ortho came by to change splint and remove sutures. He otherwise feels okay. Not able to maintain NWB and will go to [facility] Current Medications: Active Medications Generic Name Dose Route Start Last Admin Trade Name Freq PRN Reason Stop Dose Admin Acetaminophen 650 mg 08/05/17 11:15 08/18/17 15:38 Tylenol Tab* PO 650 mg Q6H PRN Administration FEVER/PAIN Bisacodyl 10 mg 08/05/17 11:15 Dulcolax Supp* [place] DAILY PRN CONSTIPATION Docusate Sodium 100 mg 08/05/17 21:00 08/18/17 08:28 Colace Cap* PO 100 mg BID ALLA Administration Fesoterodine Fumarate 8 mg 08/08/17 09:00 08/18/17 08:29 Toviaz (Nf) PO 8 mg 0900 ALLA Administration Heparin Sodium (Porcine) 5,000 units 08/05/17 14:00 08/18/17 14:50 Heparin Vial(*) SUBCUT 5,000 units Q8HR ALLA Administration Latanoprost 1 drop 08/06/17 21:00 08/17/17 20:42 Xalatan 0.005%* BOTH EYES 1 drop BEDTIME ALLA Administration Levothyroxine Sodium 200 mcg 08/06/17 06:00 08/18/17 05:55 Synthroid Tab* PO 200 mcg DAILY@0600 ALLA Administration Lisinopril 10 mg 08/06/17 09:00 08/18/17 08:28 Prinivil Tab* PO 10 mg DAILY ALLA Administration Magnesium Hydroxide 30 ml 08/05/17 11:15 Milk Of Magnesia Liq* PO Q6H PRN CONSTIPATION Omeprazole 20 mg 08/06/17 06:00 08/18/17 05:55 Prilosec Cap* PO 20 mg 0600 ALLA Administration Senna 2 tab 08/05/17 11:15 08/09/17 20:46 Senokot Tab* PO 2 tab BEDTIME PRN Administration CONSTIPATION Timolol Maleate 1 drop 08/06/17 09:00 08/18/17 08:28 Timoptic 0.5% Opth* BOTH EYES 1 drop DAILY ALLA Administration Vital Signs: Vital Signs Temp Pulse Resp BP Pulse Ox 98.2 F 68 22 118/63 98 06/04/18 15:54 08/18/17 15:54 08/18/17 15:54 08/18/17 15:54 08/18/17 15:54 Exam: LUNGS: Clear HEART: Regular rhythm ABDOMEN: Soft EXTREMITIES: Right ankle in splint. Able to move toes NEUROLOGIC: alert and oriented. Moves all 4 extremities. Assessment/Plan: 1. Right medial malleolar fracture, distal fibular fracture, S/P internal fixation: NWB RLE. PT/OT. ortho f/u today and removed gabe and splint adjustment. 2. CKD, Stage 3: stable 3. Hypothyroidism: Synthroid 4. Glaucoma: Eye drops 5. DVT Prophylaxis: Heparin S/Q 6. Advanced directives: Full code. is HCP 7. Estimated LOS: looking into subacute rehab. He prefers [facility] 08/18/17 16:29
[2017-08-18] MEDS: Latanoprost 0.005%* 2.5 ml BTL BOTH EYES SCH (21:17)
[2017-08-19] MEDS: Heparin VIAL(*) 5000 UNITS/ML VIAL (FIVE THOUSAND) SUBCUT SCH ×3 (06:00→21:38)
[2017-08-19] MEDS: Omeprazole CAP* 20 MG PO SCH (06:01)
[2017-08-19] MEDS: Levothyroxine TAB* 100 MCG TAB PO SCH (06:01)
[2017-08-19] MEDS: Timolol 0.5% OPTH.SOL* BTL BOTH EYES SCH (08:51)
[2017-08-19] MEDS: Docusate CAP* 100 MG PO SCH ×2 (08:51→20:07)
[2017-08-19] MEDS: Lisinopril TAB* 10 MG PO SCH (08:51)
[2017-08-19] MEDS: FESOTERODINE 8 MG PO SCH (08:51)
[2017-08-19] MEDS: Acetaminophen TAB* 325 MG PO PRN (08:52)
--- NOTE | 2017-08-19 12:24 | PMRUTEAM ---
PMRU: Team Meeting Current Status: Nursing: Current Status Skin Deviations [Left Lower Abrasion Leg] Skin Deviations [Right Leg] Other Skin Deviations [Back] Other Skin Deviation Description [ Mepilex is clean, dry and intact Left Lower Leg] Skin Deviation Description [ cast intact - good CSMs Right Leg] Skin Deviation Description [ red bumps Back] Bladder Current Status uses urinal Bowel Current Status bowel meds given Nutrition Current Status appetite great Medication Current Status pain medication given, needs reinforcement Physical Therapy: Current Status Bed Mobility Assistance Mod Assist Transfer Moblility Assistance Max Assist Transfer/Bed Mobility Celia Lift Recommended Devices Ambulation Assistance Unable Ambulation Assistive Devices Straight Cane Stairs Assistance Contact Guard Assist Stairs Recommended Devices Two Rails Number of Stairs 3 Manual Wheelchair Control/ Bilateral UE's Technique Wheelchair Propulsion Ability Independent Wheelchair Distance (ft) 150 Objective Comments transfer trainin successful stands, multiple attempts failed due to attempted pulling on RW or breaking R LE NWB precautions Occupational Therapy: Current Status Upper Body Dressing Supervision,Min Assist Lower Body Dressing Mod Assist Bathing Min Assist,2 Person Assist Toileting Total Assist,2 Person Assist Toilet Transfer Total Assist,2 Person Assist Toilet Transfer Progress CELIA Shower Transfer Total Assist,2 Person Assist Shower Transfer Progress N/A Eating Independent Rec Therapy: Current Status Summary of Assessment and RT assessment complete and pt. is aware of RT Clinical Impression services. Pt. has been very engaged and talkative during leisure visits. Pt. identified with many interests and active involvement in them prior to admission. Treatment Goals Pt. will engage in leisure activities while on the unit. Treatment Plan Provide RT services and encourage involvement. Social Work: Current Status Discharge Plan transfer to jail facility for subacute rehab prior to returning home Potential for Family Training n/a Anticipated Discharge [facility] Facility Destination Discharge With [facility] Nutrition: Current Status Monitoring pt cont to accept 100% of regular diet. Skin is intact; low risk for breakdown. BMs 6/, 6/2; Colace offered daily, though pt sometimes declines . He does not appear to be at any level of nutritional risk at this time. Will cont to follow weekly per team rounds. Goals: Physical Therapy: Initial Goals Bed Mobility Assistance Independent Transfer Mobility Assistance Independent Transfer/Bed Mobility Rolling Walker Recommended Devices Ambulation Independent Ambulation Recommended Devices Rolling Walker Ambulation Distance 10 Wheelchair Propulsion Ability Independent Wheelchair Distance (ft) 300 Physical Therapy: Updated Goals Transfer/Bed Mobility Celia Lift Recommended Devices Occupational Therapy: Initial Goals Goals to be Completed in (Days 21 ) Upper Body Bathing Routine Supervision/Set Up Lower Body Bathing Routine Minimal Contact Assist Upper Body Dressing Routine Supervision/Set Up Lower Body Dressing Routine Moderate Assist Toilet Hygeine and Clothing Minimal Contact Assist Management Routine Toilet Transfer Routine Supervision/Set Up Step-In Shower Transfer Supervision/Set Up Routine Functional Transfers for ADL Supervision/Set Up Grooming Routine Independent Feeding Routine Independent Nursing: Goals Bladder Goal indepedent Bowel Goal independent Nutrition Goal 100% of all meals Medication Goal independent Nutrition: Goals Intervention Goals 1. adequate po intake to support lean body mass, hydration, and stable wt 2. achieve and maintain regular bowel pattern without constipation or diarrhea 3. skin will remain intact without s/sx breakdown Social Work: Goals Discharge Plan transfer to jail facility for subacute rehab prior to returning home Potential for Family Training n/a Anticipated Discharge [facility] Facility Destination Discharge With [facility] Care Plan: Care Plan ADL's - Improve/Maintain Start: 08/05/17 15:30 Freq: DAILY@1200 Status: Active Target: Protocol: Activity Type Activity Date Activity User E-Sign Co-Sign Detail Recorded Client Recorded Date Recorded By Document 08/18/17 15:40 [id number] 08/18/17 15:40 [id number] 08/18/17 15:40 PMRU Outcome: ADL's/ADL Transfers Orders/Interventions Occupational Therapy Evaluation & Treatment Communication Tool in Patient Room Device Yes Address Deficits Secondary To: right ankle fx Patient to receive OT 5x/wk for 60-120 Therex min/day Self Care Management Group Therapy UE/LE ADL's with Assist Yes: setup-modA ADL Transfers with Assist Yes: supervision Toileting: Transfers,Clothing Management Yes: ,Hygeine w/Assist supervision transfer, Tina Progression Toward Outcome/Goals Progressing Outcome/Goals Met Pt participated well in ADL treatment session, progress continues to be limited 2* difficulty maintaining WB status. Pt able to lift RLE off of floor when doing chair pushup for LE dressing this date and maintain WB during that, but does require cues when adjusting on commode and in chair to not put weight through RLE. Discharge Planning - Improve/Maintain Start: 08/05/17 22:21 Freq: DAILY@1200 Status: Active Target: Protocol: Activity Type Activity Date Activity User E-Sign Co-Sign Detail Recorded Client Recorded Date Recorded By Document 08/19/17 00:31 [id number] 08/19/17 00:31 [id number] 08/19/17 00:31 PMRU Outcome: Discharge Planning Update Patient Family No Outcome/Goals Demonstrates Understanding of Discharge Plan Progression Toward Outcome/Goals Progressing Education-Improve/Maintain Start: 08/05/17 22:21 Freq: DAILY@1200 Status: Active Target: Protocol: Activity Type Activity Date Activity User E-Sign Co-Sign Detail Recorded Client Recorded Date Recorded By Document 08/19/17 00:31 [id number] 08/19/17 00:31 [id number] 08/19/17 00:31 PMRU Outcome: Education Outcome/Goals Encourage Questions Progression Toward Outcome/Goals Progressing Mobility- Improve/Maintain Start: 08/05/17 18:43 Freq: DAILY@1200 Status: Active Target: Protocol: Activity Type Activity Date Activity User E-Sign Co-Sign Detail Recorded Client Recorded Date Recorded By Document 08/08/17 16:04 [id number] 08/08/17 16:04 [id number] 08/08/17 16:04 PMRU Outcome: Mobility Physical Therapy Evaluation and Yes Treatment Activity OOB with Assistance Yes NWB Yes: RLE Device Yes Assistance Yes Patient to be seen 5x/wk for 60-120 min/ Therex day for: Mobility Training Gait Training W/C Mobility Balance Outcome/Goals Maintain/ Achieve Baseline Mobility Status Improve Mobility Status Demonstrates Proper Use of Assistive Devices Free from Complications of Immobility Progression Toward Outcome/Goals Progressing Bed Mobility Yes: independent Transfers Yes: independent with RW Gait x ft Yes: independent 10' with RW W/C Mobility x ft Yes: independent to community destinations ( 300) Pain/Comfort- Improve/Maintain Start: 08/05/17 22:21 Freq: DAILY@1200 Status: Active Target: Protocol: Activity Type Activity Date Activity User E-Sign Co-Sign Detail Recorded Client Recorded Date Recorded By Document 08/19/17 00:31 [id number] 08/19/17 00:31 [id number] 08/19/17 00:31 PMRU Outcome: Pain/Comfort Outcome/Goals Demonstrates Knowledge and Use of Available Comfort Measures Achieves Acceptable Comfort/Pain Level as Determined by Patient/Condit Maintain Comfort Level Allowing Patient to Fully Participate in Rehab Progression Toward Outcome/Goals Progressing Outcome/Goals Met Comment pt resting Safety- Improve/Maintain Start: 08/05/17 22:21 Freq: DAILY@1200 Status: Active Target: Protocol: Activity Type Activity Date Activity User E-Sign Co-Sign Detail Recorded Client Recorded Date Recorded By Document 08/19/17 00:31 [id number] 08/19/17 00:31 [id number] 08/19/17 00:31 PMRU Outcome: Safety Outcome/Goals Remain Free of Injury or Harm Cooperates with Safety Measures for Least Restrictive Environment Progression Toward Outcome/Goals Progressing Skin- Improve/Maintain Start: 08/05/17 22:21 Freq: DAILY@1200 Status: Active Target: Protocol: Activity Type Activity Date Activity User E-Sign Co-Sign Detail Recorded Client Recorded Date Recorded By Document 08/19/17 00:31 [id number] 08/19/17 00:31 [id number] 08/19/17 00:31 PMRU Outcome: Skin Skin Risk Level Medium Outcome/Goals Maintain/ Improve Skin Intergrity Free from Decubitus Maintain/ Improve Wound Status Surgical Incisions Healing Progression Toward Outcome/Goals Progressing Medicine Note: Length of Stay: 1 day Anticipated Discharge Destination: [facility] Facility Tentative Discharge Date: 08/20/17 Discharged to: [facility]
--- NOTE | 2017-08-19 15:49 | PN ---
Progress Note Date of Service: 08/19/17 Note: MAYUR MCNEIL was visited. Therapy notes read and reviewed. Discussed in interdisciplinary team rounds. Trying to find a bed that is long enough at [facility]. Otherwise stable Current Medications: Active Medications Generic Name Dose Route Start Last Admin Trade Name Freq PRN Reason Stop Dose Admin Acetaminophen 650 mg 08/05/17 11:15 08/19/17 08:52 Tylenol Tab* PO 650 mg Q6H PRN Administration FEVER/PAIN Bisacodyl 10 mg 08/05/17 11:15 Dulcolax Supp* [place] DAILY PRN CONSTIPATION Docusate Sodium 100 mg 08/05/17 21:00 08/19/17 08:51 Colace Cap* PO 100 mg BID ALLA Administration Fesoterodine Fumarate 8 mg 08/08/17 09:00 08/19/17 08:51 Toviaz (Nf) PO 8 mg 0900 ALLA Administration Heparin Sodium (Porcine) 5,000 units 08/05/17 14:00 08/19/17 14:26 Heparin Vial(*) SUBCUT 5,000 units Q8HR ALLA Administration Latanoprost 1 drop 08/06/17 21:00 08/18/17 21:17 Xalatan 0.005%* BOTH EYES 1 drop BEDTIME ALLA Administration Levothyroxine Sodium 200 mcg 08/06/17 06:00 08/19/17 06:01 Synthroid Tab* PO 200 mcg DAILY@0600 ALLA Administration Lisinopril 10 mg 08/06/17 09:00 08/19/17 08:51 Prinivil Tab* PO 10 mg DAILY ALLA Administration Magnesium Hydroxide 30 ml 08/05/17 11:15 Milk Of Magnesia Liq* PO Q6H PRN CONSTIPATION Omeprazole 20 mg 08/06/17 06:00 08/19/17 06:01 Prilosec Cap* PO 20 mg 0600 ALLA Administration Senna 2 tab 08/05/17 11:15 08/09/17 20:46 Senokot Tab* PO 2 tab BEDTIME PRN Administration CONSTIPATION Timolol Maleate 1 drop 08/06/17 09:00 08/19/17 08:51 Timoptic 0.5% Opth* BOTH EYES 1 drop DAILY ALLA Administration Vital Signs: Vital Signs Temp Pulse Resp BP Pulse Ox 99.1 F 76 20 138/62 97 08/19/17 06:01 08/19/17 06:01 08/19/17 06:01 08/19/17 06:01 08/19/17 06:01 Exam: LUNGS: Clear HEART: Regular rhythm ABDOMEN: Soft EXTREMITIES: Right ankle in splint. Able to move toes NEUROLOGIC: alert and oriented. Moves all 4 extremities. Assessment/Plan: 1. Right medial malleolar fracture, distal fibular fracture, S/P internal fixation: NWB RLE. PT/OT. ortho f/u , removed gabe and splint adjustment. 2. CKD, Stage 3: stable 3. Hypothyroidism: Synthroid 4. Glaucoma: Eye drops 5. DVT Prophylaxis: Heparin S/Q 6. Advanced directives: Full code. is HCP 7. Estimated LOS: likely SNF. He prefers [facility] 08/19/17 15:49
[2017-08-19] MEDS: Latanoprost 0.005%* 2.5 ml BTL BOTH EYES SCH (20:10)
[2017-08-20] MEDS: Omeprazole CAP* 20 MG PO SCH (05:48)
[2017-08-20] MEDS: Levothyroxine TAB* 100 MCG TAB PO SCH (05:48)
[2017-08-20] MEDS: Heparin VIAL(*) 5000 UNITS/ML VIAL (FIVE THOUSAND) SUBCUT SCH (05:49)
[2017-08-20 06:01] LABS: ABS Basophils 0 10^3/ul (0-0.2); ABS Eosinophils 0.2 10^3/ul (0-0.6); ABS Monocytes 0.3 10^3/ul (0-0.8); ABS Neutrophils 2.7 10^3/ul (1.5-7.7); ABS Nucleated RBC 0 10^3/ul; Hematocrit 36 % (42-52); Hemoglobin 12.3 g/dl (14.0-18.0); Lymphocyte % 38.3 % (25-47); Mean Corpuscular HGB Conc 35 g/dl (31-36); Mean Corpuscular Hemoglobin 31 pg (27-31); Mean Corpuscular Volume 89 fL (80-94); Mean Platelet Volume 7.8 um3 (7.4-10.4); Nucleated Red Blood Cells % 0.2; Platelet Count 152 10^3/ul (150-450); Red Cell Distribution Width 15 % (10.5-15); White Blood Count 5.3 10^3/ul (3.5-10.8)
[2017-08-20 06:20] VITALS: BP 130/64
[2017-08-20 06:23] LABS: EGFR Non-African American 46.3 (>60)
[2017-08-20] MEDS: Lisinopril TAB* 10 MG PO SCH (08:00)
[2017-08-20] MEDS: Docusate CAP* 100 MG PO SCH (08:19)
[2017-08-20] MEDS: Timolol 0.5% OPTH.SOL* BTL BOTH EYES SCH (08:20)
[2017-08-20] MEDS: FESOTERODINE 8 MG PO SCH (08:20)
[2017-08-20] MEDS: Acetaminophen TAB* 325 MG PO PRN (08:38)
--- NOTE | 2017-08-20 13:43 | DS ---
CC: [facility]* DATE OF ADMISSION: 08/05/2017 DATE OF DISCHARGE: 08/20/2017. DISCHARGE DIAGNOSES: 1. Right medial malleolus fracture, status post open reduction internal fixation of the same. 2. Right distal fibular fracture. 3. Hypothyroidism. 4. Chronic kidney disease, stage 3. HISTORY OF PRESENT ILLNESS AND HOSPITAL COURSE: For complete history of events leading up to his rehab stay, please see the history and physical dictated by me on 08/05/2017. While on the rehab unit, the patient remained stable from a medical point of view. He had a great deal of difficulty maintaining his nonweightbearing status. He was seen by Physical Therapy and Occupation Therapy , and while he made gains with both disciplines, he was not able to come close to achieving independence because of his difficulty maintaining his weightbearing status. With physical therapy at the time of admission, the patient was dependent in transfers and unable to ambulate. At the time of discharge, he was still dependent in transfers and still unable to ambulate. He was able to repel a wheelchair. With occupational therapy at the time of admission, he was dependent for toileting and toilet transfers. At the time of discharge, he remained dependent in toileting and toilet transfers. He is being transferred to [facility]. His hope that when he is able to begin weightbearing on the right leg, he will be able to transfer and able to perhaps ambulate and return home. He will undergo subacute rehab on a slower scale. DISCHARGE DIET: Regular. DISCHARGE MEDICATIONS: 1. Toviaz 8 mg daily. 2. Xalatan eye drops one drop to both eyes at bedtime. 3. Synthroid 100 mcg daily. 4. Lisinopril 10 mg daily. 5. Omeprazole 20 mg daily. 6. Timoptic eye drops one drop to both eyes daily. 7. Tylenol 650 mg every 6 hours as needed. SERVICES AFTER DISCHARGE: He should have restorative physical therapy and occupational therapy. ACTIVITY LEVEL: He is nonweightbearing on the right lower extremity. FOLLOW-UP: Follow-up with Dr. Mitchell Sanderson in two to three weeks. [id number]/[facility] #: [id number] [facility]
== END 2017-08-20 11:30 | DRG 561 ==
LOC: PMRU 09:46
PROVIDERS: ADMIT Physical Medicine & Rehabilitation; ATTEND Physical Medicine & Rehabilitation
PROC: F07Z5ZZ Bed Mobility Treatment (ICD-10-PCS; principal; 2017-08-05)
PROC: F07Z9ZZ Gait Training/Functional Ambulation Treatment (ICD-10-PCS; 2017-08-05)
PROC: F07Z8ZZ Transfer Training Treatment (ICD-10-PCS; 2017-08-05)
PROC: F07Z4ZZ Wheelchair Mobility Treatment (ICD-10-PCS; 2017-08-05)
PROC: F08Z0ZZ Bathing/Showering Techniques Treatment (ICD-10-PCS; 2017-08-05)
PROC: F08Z1ZZ Dressing Techniques Treatment (ICD-10-PCS; 2017-08-05)
PROC: F08Z3ZZ Feeding/Eating Treatment (ICD-10-PCS; 2017-08-05)
DX: S82.51XD Displaced fracture of medial malleolus of right tibia, subsequent encounter for closed fracture with routine healing (principal); N18.3 Chronic kidney disease, stage 3 (moderate); E03.9 Hypothyroidism, unspecified; H40.9 Unspecified glaucoma; Z96.653 Presence of artificial knee joint, bilateral; W17.89XD Other fall from one level to another, subsequent encounter; Z85.53 Personal history of malignant neoplasm of renal pelvis; Z90.5 Acquired absence of kidney; Z79.01 Long term (current) use of anticoagulants; Z79.899 Other long term (current) drug therapy
CPT/HCPCS: 36415; 80053; 85025; A9270-GY; J1644

== ENCOUNTER → 2018-03-29 15:57 | Emergency (ER) | payer MEDICARE, OTHER ==
--- NOTE | 2018-03-29 16:32 | ED ---
Head Injury - HPI Summary HPI Summary: An 87 y/o M brought in by ambulance presents to ED s/p fall onset NON LINEAR EDITOR. Pt says his legs gave out and he just fell. He denies LOC. He hit the L side of his head and does have a laceration above his eyebrow. It is bandaged at bedside. He denies neck and back pain, SOB, CP. He denies ETOH today. He is not having pain at bedside. He does not think he is on any blood thinners. - History Of Current Complaint Chief Complaint: EDHeadInjury Stated Complaint: FALL HEAD LAC Time Seen by Provider: 03/29/18 16:25 Hx Obtained From: Patient Mechanism Of Injury: Fall From A Standing Position Onset/Duration: Still Present Onset of Pain: Immediate Severity Currently: Mild Severity Initially: Mild Pain Intensity: 1 Pain Scale Used: 0-10 Numeric Location of Head Injury: Frontal Location: Discrete At: - above L eyebrow Associated Signs And Symptoms: Other: - pos: weakness, lac above L eye. neg: SOB , CP, LOC, pain - Allergies/Home Medications Allergies/Adverse Reactions: Allergies Allergy/AdvReac Type Severity Reaction Status Date / Time No Known Allergies Allergy Verified 07/31/17 17:27 PMH/Surg Hx/FS Hx/Imm Hx Previously Healthy: No Endocrine/Hematology History: Reports: Hx Thyroid Disease - hypothyroidism Denies: Hx Diabetes Comment Only: Other Endocrine/Hematological Disorders - partial thyroidectomy Cardiovascular History: Reports: Hx Coronary Artery Disease, Hx Deep Vein Thrombosis - 2009, Other Cardiovascular Problems/Disorders - chronic lower extremity lymphadema Denies: Hx Hypertension Respiratory History: Reports: Hx Sleep Apnea - pt's own CPAP, Other Respiratory Problems/Disorders - KRISTA Denies: Hx Asthma, Hx Chronic Obstructive Pulmonary Disease (COPD) GI History: Denies: Hx Ulcer History: Reports: Hx Benign Prostatic Hyperplasia - s/p TURP, 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, Other Problems/ Disorders - TURP, R nephrectomy s/p renal cell carcinoma Musculoskeletal History: Reports: Other Musculoskeletal History - Bilateral knee replacements Sensory History: Reports: Hx Glaucoma, Hx Hearing Aid, Hx Hearing Problem Denies: Hx Contacts or Glasses Opthamlomology History: Reports: Hx Glaucoma Denies: Hx Contacts or Glasses - Cancer History Cancer Type, Location and Year: Right kidney removed in 1990 - Surgical History Surgery Procedure, Year, and Place: t&a, gall bladder, bilat knee replacement, thyroid nodules removed, bilateral cataract, appendix, right kidney Hx Anesthesia Reactions: No - Immunization History Date of Tetanus Vaccine: not upto date Infectious Disease History: No Infectious Disease History: Denies: Hx Hepatitis, Hx Human Immunodeficiency Virus (HIV), History Other Infectious Disease, Traveled Outside the [place] in Last 30 Days - Family History Known Family History: Negative: Renal Disease, Respiratory Disease, Seizure Disorder - Social History Occupation: Retired Lives: With Family Alcohol Use: Rare Hx Substance Use: No Substance Use Type: Reports: None Hx Tobacco Use: No Smoking Status (MU): Never Smoked Tobacco Review of Systems Negative: Chest Pain Negative: Shortness Of Breath Musculoskeletal: Other - denies pain including neck and back pain Skin: Other - lac above L eye Positive: Weakness All Other Systems Reviewed And Are Negative: Yes Physical Exam - Summary Physical Exam Summary: VITAL SIGNS: Reviewed. GENERAL: Patient is a well-developed and nourished MALE who is lying comfortable in the stretcher. Patient is not in any acute respiratory distress. HEAD AND FACE: 4cm linear lac above L eyebrow. No ecchymosis, hematomas or skull depressions. No sinus tenderness. EYES: PERRLA, EOMI x 2, No injected conjunctiva, no nystagmus. EARS: Hearing grossly intact. Ear canals and tympanic membranes are within normal limits. MOUTH: Oropharynx within normal limits. NECK: Supple, trachea is midline, no adenopathy, no JVD, no carotid bruit, no c- spine tenderness, neck with full ROM. CHEST: Symmetric, no tenderness at palpation LUNGS: Clear to auscultation bilaterally. No wheezing or crackles. CVS: Regular rate and rhythm, S1 and S2 present, no murmurs or gallops appreciated. ABDOMEN: Soft, non-tender. No signs of distention. No rebound, no guarding, and no masses palpated. Bowel sounds are normal. EXTREMITIES: FROM in all major joints, no edema, no cyanosis or clubbing. NEURO: Alert and oriented x 3. No acute neurological deficits. Speech is normal and follows commands. SKIN: Dry and warm Triage Information Reviewed: Yes Vital Signs On Initial Exam: Initial Vitals Temp Pulse Resp BP Pulse Ox 97.8 F 70 16 174/73 98 03/29/18 16:08 03/29/18 16:08 03/29/18 16:08 03/29/18 16:08 03/29/18 16:08 Vital Signs Reviewed: Yes - Ramone Coma Scale Best Eye Response: 4 - Spontaneous Best Motor Response: 6 - Obeys Commands Best Verbal Response: 5 - Oriented Coma Scale Total: 15 Procedures - Laceration/Wound Repair 18:05 Location: face - above L eyebrow Description: Linear Anesthesia: Local, 1.0%, Lido Length, Depth and Shape: 4 cm Irrigated w/ Saline (ccs): 500 - ccs Suture Type: Nylon - 4-0, continuous suture Diagnostics - Vital Signs Vital Signs Temp Pulse Resp BP Pulse Ox 03/29/18 16:08 97.8 F 70 16 174/73 98 - Laboratory Result Diagrams: 03/29/18 16:50 03/29/18 16:50 Lab Statement: Any lab studies that have been ordered have been reviewed, and results considered in the medical decision making process. - CT BRAIN CT CT Interpretation Completed By: Radiologist Summary of CT Findings: IMPRESSION: 1. Left periorbital soft tissue swelling/ laceration. 2. No acute intracranial abnormality. 3. 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 ED provider has reviewed this report. - EKG 1643 Cardiac Rate: NL - 71 bpm EKG Rhythm: Sinus Rhythm ST Segment: Normal - no ST elevation EKG Comparison: No Significant Change - from EKG on 10/14/13 Head Injury Course/Dx Assessment/Plan: An 87 y/o M brought in by ambulance presents to ED s/p fall onset NON LINEAR EDITOR. Pt says his legs gave out and he just fell. He denies LOC. He hit the L side of his head and does have a laceration above his eyebrow. It is bandaged at bedside. He denies neck and back pain, SOB, CP. He denies ETOH today. He is not having pain at bedside. He does not think he is on any blood thinners. Blood work without any significant abnormality except for BUN 25 creatinine 1.37 and glucose 123. Urinalysis is negative UTI and urine toxicology is negative. Head CT impression: Left periorbital soft tissue swelling or laceration. No acute intracranial abnormality. Trace chronic small vessel disease. In the ED course the patients laceration is repair. No complications. Patient reports that he is up-to-date with vaccinations. The last time he had a tetanus vaccine was 3 years ago. Therefore this time the patient will be discharged home with follow-up with PCP in the next 7-10 days for suture removals. Patient understands and agrees. The patient is hemodynamically stable alert oriented 3. The patient is ambulating out of the emergency room. - Diagnoses Provider Diagnoses: Head contusion, Laceration Discharge - Sign-Out/Discharge Documenting (check all that apply): Patient Departure - D/C - Discharge Plan Condition: Stable Disposition: HOME Patient Education Materials: Care For Your Stitches (ED), Fall Prevention for Older Adults (ED), Facial Laceration (ED) Referrals: Niurka Lei MD [Primary Care Provider] - 7 Days Additional Instructions: RETURN TO THE ED FOR ANY WORSENING OR NEW SYMPTOMS. Follow up with your primary care provider in the next 7-10 days for suture removal. - Billing Disposition and Condition Condition: STABLE Disposition: Home - Attestation Statements Document Initiated by Jackie: Yes Documenting Scribe: Lydia Lind Provider For Whom [facility] is Documenting (Include Credential): Dr. Brandon Talley MD Scribe Attestation: Lydia Davis scribed for Dr. Brandon Talley MD on 03/30/18 at 1721. Scribe Documentation Reviewed: Yes Provider Attestation: The documentation as recorded by the Lydia strong accurately reflects the service I personally performed and the decisions made by , Dr. Brandon Talley MD Status of Scribe Document: Viewed
[2018-03-29 17:01] LABS: ABS Basophils 0 10^3/ul (0-0.2); ABS Eosinophils 0.1 10^3/ul (0-0.6); ABS Lymphocytes 1.6 10^3/ul (1.0-4.8); ABS Monocytes 0.3 10^3/ul (0-0.8); ABS Neutrophils 3.7 10^3/ul (1.5-7.7); ABS Nucleated RBC 0 10^3/ul; Eosinophil % 2.4 %; Hematocrit 42 % (42-52); Hemoglobin 14.4 g/dl (14.0-18.0); Lymphocyte % 27.9 %; Mean Corpuscular HGB Conc 35 g/dl (31-36); Mean Corpuscular Hemoglobin 31 pg (27-31); Mean Corpuscular Volume 89 fL (80-94); Mean Platelet Volume 7.9 fL (7.4-10.4); Nucleated Red Blood Cells % 0.1; Platelet Count 166 10^3/ul (150-450); Red Cell Distribution Width 14 % (10.5-15); White Blood Count 5.8 10^3/ul (3.5-10.8)
[2018-03-29 17:17] LABS: Albumin 4.4 g/dL (3.2-5.2); Albumin/Globulin Ratio 1.9 (1-3); BUN/Creatinine Ratio 18.2 (8-20); Calcium 9.7 mg/dL (8.6-10.3); EGFR Non-African American 49.3 (>60); Globulin 2.3 g/dL (2-4); Potassium 4.7 mmol/L (3.5-5.0); Total Bilirubin 0.5 mg/dL (0.2-1.0); Total Protein 6.7 g/dL (6.4-8.9)
[2018-03-29 17:26] LABS: Urine Appearance Clear; Urine Bilirubin Negative (Negative); Urine Blood Negative (Negative); Urine Color Yellow; Urine Glucose Negative (Negative); Urine Ketones Negative (Negative); Urine Nitrite Negative (Negative); Urine Protein Negative (Negative); Urine Specific Gravity 1.016 (1.010-1.030); Urine Urobilinogen Negative (Negative)
[2018-03-29 17:48] LABS: Barbiturates Urine Screen None Detected (None Detect); Benzodiazepine Urine Screen None Detected (None Detect); Urine Cannabinoids Screen None Detected (None Detect)
[2018-03-29 17:50] LABS: Erythrocyte Sed Rate 14 mm/Hr (0-40)
[2018-03-29 18:51] VITALS: BP 196/103
== END | disposition home or self-care (01) ==
LOC: ED 15:57
DX: S00.93XA Contusion of unspecified part of head, initial encounter (principal); S01.112A Laceration without foreign body of left eyelid and periocular area, initial encounter; R53.1 Weakness; W19.XXXA Unspecified fall, initial encounter; Y92.9 Unspecified place or not applicable; I25.10 Atherosclerotic heart disease of native coronary artery without angina pectoris; Z86.718 Personal history of other venous thrombosis and embolism; Z90.5 Acquired absence of kidney
CPT/HCPCS: 12013; 36415; 70450; 80053; 80307; 81003; 82375; 83605; 85025; 85652; 85730; 93005; 99283

== ENCOUNTER 2018-09-04 23:09 | Observation (INO) | payer MEDICARE, OTHER ==
--- NOTE | 2018-09-05 01:20 | ED ---
Dizziness - HPI Summary HPI Summary: Pt is an 87 y/o M presenting to the ED with a chief complaint of weakness. He states he went to his personal service representative on 08/28, and he woke up on 09/04 with chills, and his legs were incredibly weak. This past week, his daughter visited , who was nauseous, and his also experienced nausea and vomiting. The pt was slightly nauseous on the night of 09/04, febrile, and diaphoretic. He denies CP or SOB, and reports a chronic cough. He also states hes not prone to tick bites and does not go outside much. - History Of Current Complaint Chief Complaint: EDFluSymptoms Stated Complaint: "FLU LIKE SYMPTOMS" PER Hx Obtained From: Patient Onset/Duration: Still Present, Suddenly Timing: Constant Severity Initially: Moderate Severity Currently: Moderate Character: Weak Aggravating Factor(s): Nothing Alleviating Factor(s): Nothing Associated Signs And Symptoms: Positive: Nausea, Fever, Chills. Negative: Chest Pain, SOB - Allergies/Home Medications Allergies/Adverse Reactions: Allergies Allergy/AdvReac Type Severity Reaction Status Date / Time No Known Allergies Allergy Verified 09/04/18 23:22 Home Medications: Home Medications Lisinopril TAB* [Prinivil TAB 10 MG*] 5 mg PO DAILY 09/05/18 [History Confirmed 09/05/18] PMH/Surg Hx/FS Hx/Imm Hx Previously Healthy: Yes Endocrine/Hematology History: Reports: Hx Thyroid Disease - hypothyroidism Denies: Hx Diabetes Comment Only: Other Endocrine/Hematological Disorders - partial thyroidectomy Cardiovascular History: Reports: Hx Coronary Artery Disease, Hx Deep Vein Thrombosis - 2009, Other Cardiovascular Problems/Disorders - chronic lower extremity lymphadema Denies: Hx Hypertension Respiratory History: Reports: Hx Sleep Apnea - pt's own CPAP, Other Respiratory Problems/Disorders - KRISTA Denies: Hx Asthma, Hx Chronic Obstructive Pulmonary Disease (COPD) GI History: Denies: Hx Ulcer History: Reports: Hx Benign Prostatic Hyperplasia - s/p TURP, 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, Other Problems/ Disorders - TURP, R nephrectomy s/p renal cell carcinoma Musculoskeletal History: Reports: Other Musculoskeletal History - Bilateral knee replacements Sensory History: Reports: Hx Glaucoma, Hx Hearing Aid, Hx Hearing Problem Denies: Hx Contacts or Glasses Opthamlomology History: Reports: Hx Glaucoma Denies: Hx Contacts or Glasses - Cancer History Cancer Type, Location and Year: Right kidney removed in 1990 - Surgical History Surgery Procedure, Year, and Place: t&a, gall bladder, bilat knee replacement, thyroid nodules removed, bilateral cataract, appendix, right kidney Hx Anesthesia Reactions: No - Immunization History Date of Tetanus Vaccine: not upto date Infectious Disease History: No Infectious Disease History: Denies: Hx Hepatitis, Hx Human Immunodeficiency Virus (HIV), History Other Infectious Disease, Traveled Outside the [place] in Last 30 Days - Family History Known Family History: Negative: Renal Disease, Respiratory Disease, Seizure Disorder - Social History Alcohol Use: Rare Hx Substance Use: No Substance Use Type: Reports: None Hx Tobacco Use: No Smoking Status (MU): Never Smoked Tobacco Review of Systems Positive: Fever, Chills Negative: Chest Pain Positive: Cough. Negative: Shortness Of Breath Positive: Nausea Positive: Weakness - bilateral legs All Other Systems Reviewed And Are Negative: Yes Physical Exam - Summary Physical Exam Summary: Appearance: Febrile-appearing, Well-nourished, lying in bed comfortably Skin: Warm, dry, no obvious rash Eyes: sclera anicteric, no conjunctival pallor ENT: mucous membranes moist, pharynx appears normal Neck: Supple, nontender Respiratory: Clear to auscultation, no signs of respiratory distress Cardiovascular: Normal S1, S2. No murmurs. Normal distal pulses in tibial and radial bilaterally. Abdomen: Soft, nontender, normal active bowel sounds present Musculoskeletal: Normal, Strength/ROM Intact Neurological: A&Ox3, awake and alert, mentation is normal, speech is fluent and appropriate Psychiatric: affect is normal, does not appear anxious or depressed Triage Information Reviewed: Yes Vital Signs On Initial Exam: Initial Vitals Temp Pulse Resp BP Pulse Ox 98.7 F 88 18 142/58 95 09/04/18 23:16 09/04/18 23:16 09/04/18 23:16 09/04/18 23:16 09/04/18 23:16 Vital Signs Reviewed: Yes Diagnostics - Vital Signs Vital Signs Temp Pulse Resp BP Pulse Ox 09/05/18 01:09 96 09/05/18 01:00 82 21 92 09/05/18 00:40 84 23 132/67 95 09/05/18 00:10 83 17 151/67 95 09/05/18 00:00 84 22 92 09/04/18 23:49 80 23 90 09/04/18 23:41 78 22 136/56 91 09/04/18 23:23 85 25 92 09/04/18 23:16 98.7 F 88 18 142/58 95 - Laboratory Result Diagrams: 09/06/18 07:02 09/06/18 07:02 Lab Statement: Any lab studies that have been ordered have been reviewed, and results considered in the medical decision making process. - Radiology CXR Radiology Interpretation Completed By: ED Physician Summary of Radiographic Findings: No acute process, pending official radiology report. Dizzy Course/Dx - Course Course Of Treatment: Pt is an 87 y/o M presenting to the ED with a chief complaint of weakness. He states he was recently visited by his daughter who was c/o nausea, and his also experienced n/v/d. The pt was slightly nauseous on the night of 09/04, febrile, and diaphoretic. He denies CP or SOB, and reports a chronic cough. He also states hes not prone to tick bites and does not go outside much. CXR shows no acute process, pending official radiology report. I spoke with Dr. Mendoza who will be coming to see the patient. Dr. Mendoza will accept the pt for admission. - Diagnoses Provider Diagnoses: Fever Discharge - Sign-Out/Discharge Documenting (check all that apply): Patient Departure - Discharge Plan Condition: Stable Disposition: ADMITTED TO [facility] - Billing Disposition and Condition Condition: STABLE Disposition: Admitted to [facility] - Attestation Statements Document Initiated by Jackie: Yes Documenting Scribe: Nayana Nguyễn Provider For Whom Jackie is Documenting (Include Credential): Raghu Rosenberg MD. Scribe Attestation: Nayana Davis, genevieveed for Raghu Rosenberg MD. on 09/08/18 at 0813. Scribe Documentation Reviewed: Yes Provider Attestation: The documentation as recorded by the Nayana strong accurately reflects the service I personally performed and the decisions made by me, Raghu Rosenberg MD. Status of Scribe Document: Viewed Consult Consult: [id number] - I spoke with Dr. Mendoza who will be coming to see the patient.
[2018-09-05 01:51] LABS: ABS Basophils 0.1 10^3/ul (0-0.2); ABS Lymphocytes 0.9 10^3/ul (1.0-4.8); ABS Monocytes 1.1 10^3/ul (0-0.8); ABS Neutrophils 15.5 10^3/ul (1.5-7.7); Eosinophil % 0.1 %; Hematocrit 40 % (42-52); Hemoglobin 13.9 g/dL (14.0-18.0); Mean Corpuscular HGB Conc 34 g/dL (31-36); Mean Corpuscular Hemoglobin 30 pg (27-31); Mean Corpuscular Volume 88 fL (80-94); Mean Platelet Volume 8.3 fL (7.4-10.4); Platelet Count 124 10^3/uL (150-450); Red Blood Count 4.57 10^6 /uL (4.18-5.48); Red Cell Distribution Width 14 % (10-15); White Blood Count 17.5 10^3/uL (3.5-10.8)
[2018-09-05 01:56] LABS: INR 1.07 (0.82-1.09)
[2018-09-05 02:08] LABS: Albumin 3.9 g/dL (3.2-5.2); Albumin/Globulin Ratio 1.6 (1-3); BUN/Creatinine Ratio 21.5 (8-20); Calcium 9.4 mg/dL (8.6-10.3); EGFR African American 50.6 (>60); EGFR Non-African American 41.8 (>60); Globulin 2.5 g/dL (2-4); Potassium 4.4 mmol/L (3.5-5.0); Total Bilirubin 0.8 mg/dL (0.2-1.0); Total Protein 6.4 g/dL (6.4-8.9)
[2018-09-05 02:09] LABS: Troponin I 0.03 ng/mL (<0.04)
[2018-09-05] MEDS ORDERED: cefTRIAXone(*) 1 GM in NS 0.9% 50 ML* 50 ML IVPB ONE (03:12)
[2018-09-05 03:22] LABS: Urine Appearance Clear; Urine Bilirubin Negative (Negative); Urine Blood Negative (Negative); Urine Color Yellow; Urine Glucose Negative (Negative); Urine Ketones Negative (Negative); Urine Nitrite Negative (Negative); Urine Protein Negative (Negative); Urine Specific Gravity 1.019 (1.010-1.030); Urine Urobilinogen Negative (Negative)
[2018-09-05] MEDS ORDERED: Acetaminophen TAB* 325 MG PO PRN (06:11)
[2018-09-05] MEDS: ceFAZolin 1 GM ADVAN(*) 1 GM in NS 0.9% 50 ML* 50 ML IVPB SCH ×4 (07:55→23:35)
--- NOTE | 2018-09-05 09:30 | HP ---
CC: Dr. Lei * HISTORY AND PHYSICAL: DATE OF ADMISSION: 09/05/18 PRIMARY CARE PROVIDER: Dr. Lei. CHIEF COMPLAINT: Fever and weakness. HISTORY OF PRESENT ILLNESS: Mr. Shah is a 87-year-old male who states that he had been in his usual state of health until approximately 3 p.m. on the day prior to admission. The patient states that he had a home personal training session yesterday afternoon, which completed around 3 p.m. He then sat in his chair and developed what he calls the shakes. He states that he was shaking uncontrollably for approximately 1 hour. Because the shakes continue for that period of time, he got up and he went to bed, covered up and trying to get warm. At some point, his returned home and checked his temperature. He reportedly had a fever to a T- max of 102. The patient felt very weak and because of the fever, shaking and weakness, ultimately presented to the emergency room for evaluation. Currently, the patient states that he is feeling better, but not back to normal. He still feels weaker than usual. He denies any change in appetite. No chest pain. He does have a chronic cough, but no sputum production. No nausea, vomiting, or diarrhea. No dysuria. No hematuria. No joint pains or muscle pains out of the ordinary and no skin breakdown was noted by the patient. PAST MEDICAL HISTORY: 1. Renal cell carcinoma, status post right nephrectomy. 2. Stage 3 chronic kidney disease. 3. Hypothyroidism. 4. BPH. 5. Glaucoma. 6. KRISTA. 7. Hypertension. PAST SURGICAL HISTORY: 1. Bilateral cataract extraction. 2. Internal fixation of right medial malleolus fracture. 3. Partial thyroidectomy. 4. Cholecystectomy. 5. Appendectomy. 6. Right nephrectomy. 7. TURP. 8. Bilateral total knee arthroplasties. 9. Tonsillectomy. MEDICATIONS: 1. Lisinopril 5 mg p.o. daily. 2. Tylenol 650 mg p.o. q.6 hours p.r.n. pain. 3. Timolol 1 drop to both eyes daily. 4. Levothyroxine 200 mcg p.o. daily. 5. Xalatan 1 drop to both eyes at bedtime. 6. Toviaz 8 mg p.o. daily. ALLERGIES: No known drug allergies. FAMILY HISTORY: Positive for coronary artery disease, hypertension, diabetes, and breast cancer. SOCIAL HISTORY: The patient is a nonsmoker. He drinks alcohol very rarely. He worked at [employer]. He is . He has 3 children; one is from renal failure. The patient's , Amna, is his healthcare proxy. REVIEW OF SYSTEMS: A complete 11 system review of systems was obtained. Pertinent positives and negatives were as per HPI and otherwise negative. PHYSICAL EXAMINATION GENERAL: The patient is a well-developed elderly male seen lying in a stretcher , in no acute distress. VITAL SIGNS: Blood pressure 144/67, pulse 87, respirations 22, temp 98.4, and O2 sat 100% on 2 L. HEENT: Pupils are equal and round. Extraocular muscles are intact. Oropharynx is clear. Oral mucosa is moist. There is no submandibular, cervical , or supraclavicular adenopathy. Thyroid is not enlarged. No thyroid nodules noted. PULMONARY: Lungs are clear to auscultation bilaterally. CARDIAC: Normal S1 and S2. Regular rate and rhythm. I do not appreciate any murmurs. There is 1+ bilateral lower extremity pitting edema. ABDOMEN: Bowel sounds are present. Abdomen is soft, nontender, nondistended. MUSCULOSKELETAL: There is no cyanosis or clubbing at the digits. There is full active range of motion all 4 extremities. SKIN: Warm and dry. There are no rashes. There is, however, slight erythema noted to the left distal leg. This is hot to touch. There is an abrasion noted to the dorsal aspect of the left second toe and it appears that the toenail on the left fifth toe has lifted up some and there was bleeding from the toenail. NEUROLOGIC: Cranial nerves II through XII are grossly intact. Sensation is intact to light touch throughout. Strength is 5/5 and symmetrical to both upper and lower extremities bilaterally. PSYCH: The patient is alert. He is oriented x3. Affect appears appropriate. DIAGNOSTIC STUDIES/LAB DATA: WBC 17.5, hemoglobin 13.9, hematocrit 40, platelets 124. INR 1.07. Sodium 138, potassium 4.4, chloride 107, CO2 24, BUN 34, creatinine 1.58, glucose 152, lactic acid 1.2, calcium 9.4, bilirubin 0.8, AST 18, ALT 14, alk phos 44, troponin 0.03, albumin 3.9. Urinalysis reveals clear urine with specific gravity 1.019. Chest x-ray to my interpretation is clear. ASSESSMENT AND PLAN: Mr. Shah is an 87-year-old male with a history of stage 3 chronic kidney disease, hypertension, hypothyroidism, and obstructive sleep apnea, who presents to the emergency room with complaints of weakness and rigors and is going to be admitted for sepsis secondary to left lower extremity cellulitis. 1. Sepsis secondary to left lower extremity cellulitis. At this time, the patient is septic by SIRS criteria with fever and leukocytosis. There is no evidence of end-organ dysfunction or hypotension. The patient will receive normal saline 100 mL/hour. I am going to start cefazolin 1 g IV q.6 hours for the presumed cellulitis of the left lower extremity. The patient is, otherwise , looking quite well. He will be under observation status and if he improves by either later this afternoon or tomorrow morning, he will likely be able to go home. 2. Hypothyroidism. Continue Synthroid at home dose. 3. Hypertension. Blood pressure is under fair control. Continue lisinopril 5 mg daily. 4. Obstructive sleep apnea. I have ordered CPAP to be used for sleep. 5. Deep vein thrombosis prophylaxis. According to the adult thrombosis prophylaxis risk factor assessment guide, the patient has a total risk factor score of 7 making him the highest risk. Lovenox 40 mg subcutaneous daily will be utilized as deep vein thrombosis prophylaxis. 6. Code status is full. TIME SPENT: Sixty-five minutes was spent admitting this patient. [id number]/[facility] #: [id number] NIKITA
[2018-09-05] MEDS: Timolol 0.5% OPTH.SOL* BTL BOTH EYES SCH (09:41)
[2018-09-05] MEDS: NS 0.9% 1000 ML** 1,000 ML IV SCH ×2 (09:41→19:55)
[2018-09-05] MEDS: Lisinopril TAB* 10 MG PO SCH (09:41)
[2018-09-05] MEDS: FESOTERODINE 8 MG PO SCH (09:42)
[2018-09-05 13:06] LABS: C Reactive Protein 23.7 mg/L (<8.01)
--- NOTE | 2018-09-05 14:44 | PN ---
Hospitalist Progress Note Date of Service: 09/05/18 Brief update- Patient feeing better later this morning. Was feeling generalized weakness leading up to admission which has improved. Denies fever/chills/rigors, chest pain, difficulty breathing, abd pain, n/v. PE: General: Elderly white male laying comfortably in hospital bed, appearing in NAD , diaphoretic ENT: mucous membranes moist Lungs: CTA throughout Cardio: RRR with grade I systolic murmur Abd: abd soft nontender nondistended Extremities: minimal erythema to medial aspect of left LE; chronic pigmentation changes to bilateral LEs consistent with vascular insufficiency Neuro: a&ox3, no focal deficits Continuing IVF and cefazolin afebrile since admission, continuing to monitor Ordered CRP add on to ED labs to trend if necessary
[2018-09-05] MEDS ORDERED: Melatonin 3 MG TAB PO PRN (20:06)
[2018-09-05] MEDS ORDERED: Enoxaparin(*) 40 MG/0.4 ML SYR SUBCUT SCH (21:00)
[2018-09-05] MEDS ORDERED: Latanoprost 0.005%* 2.5 ml BTL BOTH EYES SCH (21:00)
[2018-09-06 03:31] VITALS: BP 146/81
[2018-09-06] MEDS ORDERED: Levothyroxine TAB* 100 MCG TAB PO SCH (06:00)
[2018-09-06] MEDS: ceFAZolin 1 GM ADVAN(*) 1 GM in NS 0.9% 50 ML* 50 ML IVPB SCH (06:18)
[2018-09-06] MEDS: NS 0.9% 1000 ML** 1,000 ML IV SCH (06:18)
[2018-09-06 07:31] LABS: Hematocrit 36 % (42-52); Hemoglobin 12.8 g/dL (14.0-18.0); Mean Corpuscular HGB Conc 35 g/dL (31-36); Mean Corpuscular Hemoglobin 31 pg (27-31); Mean Corpuscular Volume 88 fL (80-94); Mean Platelet Volume 8.3 fL (7.4-10.4); Platelet Count 102 10^3/uL (150-450); Red Blood Count 4.13 10^6 /uL (4.18-5.48); Red Cell Distribution Width 14 % (10-15); White Blood Count 5.1 10^3/uL (3.5-10.8)
[2018-09-06 07:41] LABS: BUN/Creatinine Ratio 19.5 (8-20); Calcium 8.8 mg/dL (8.6-10.3); EGFR African American 61.7 (>60); Potassium 3.8 mmol/L (3.5-5.0)
[2018-09-06] MEDS: Lisinopril TAB* 10 MG PO SCH (09:12)
[2018-09-06] MEDS: Timolol 0.5% OPTH.SOL* BTL BOTH EYES SCH (09:12)
[2018-09-06] MEDS: FESOTERODINE 8 MG PO SCH (09:12)
--- NOTE | 2018-09-06 23:18 | DS ---
CC: Dr. Lei * DISCHARGE SUMMARY: DATE OF ADMISSION: 09/05/18 (approximately 0100) DATE OF DISCHARGE: 09/06/18 PROVIDER: ANAND Gandara ATTENDING PHYSICIAN: Dr. Kaushik Ya * (dictated by ANAND Gandara) . PRIMARY CARE PROVIDER: Dr. Lei. PRIMARY DIAGNOSIS: Sepsis secondary to likely cellulitis, sepsis resolved. SECONDARY DIAGNOSES: 1. Renal cell carcinoma, status post right nephrectomy. 2. Chronic kidney disease, stage 3. 3. Hypothyroidism. 4. Benign prostatic hyperplasia. 5. Glaucoma. 6. Obstructive sleep apnea. 7. Hypertension. PERTINENT LAB DATA: White blood cell count of 17.5. At the time of admission, on the date of discharge, white blood cell count of 5.1, creatinine 1.58. At the time of admission, creatinine of 1.33. On the date of discharge, lactic acid 1.2. At the time of admission, urinalysis, yellow clear urine with a pH of 5.8, specific gravity 1.019. Negative for: Proteins, ketones, blood, nitrite, bilirubin, urobilinogen, leukocyte esterase, glucose. CRP 23.70. HISTORY OF PRESENT ILLNESS/HOSPITAL COURSE: Mauro Shah is an 87-year-old white male with past medical history significant for CKD, hypothyroidism, hypertension, BPH, who presented to the emergency department due to fever and generalized weakness. Please see admitting H and P dictated by Dr. Sunita Mendoza on 09/05/18 for further information. Ultimately, there was little evidence for cause of his leukocytosis and fever of 102 at home other than a very mild cellulitis to the left lower extremity. His chest x-ray was negative and his urinalysis was negative. At the time of discharge, blood culture is with no growth to date. During his hospital stay, he was afebrile. He was afebrile at arrival to the emergency department as well. Leukocytosis was resolved by the time of discharge. By the day of discharge, the patient was feeling well. He was feeling his strength had returned. His cellulitis was consistently nonpurulent. He was originally diaphoretic, but this had resolved as well. During his hospital stay, his normal home medications were continued. He was given approximately 2100 mL of IV fluids, which did resolve his DESHAWN on top of his chronic kidney disease as his creatinine returned to his baseline by the date of discharge. The patient received IV cefazolin during his hospital stay to treat his cellulitis. On the day of discharge, the patient is feeling well. He denies fever, chills, chest pain, difficulty breathing, pain to his extremities, weakness, abdominal pain, nausea, or vomiting. PHYSICAL EXAMINATION: General: Obese white male, sitting in hospital chair, appearing in no acute distress, and appearing comfortable. Head: Normocephalic , atraumatic. Eyes: PERRL, sclerae anicteric. ENT: Mucous membranes moist. Neck: Supple. Lungs: Clear to auscultation throughout. Cardio: Regular rate and rhythm without murmurs, rubs, or gallops. Abdomen: Abdomen is soft, nontender, and nondistended. Extremities: No edema, clubbing, or cyanosis. Neuro: The patient is alert and oriented x3. No focal deficits. Able to move all extremities. Skin: Skin is warm, dry, and intact. Very minimal erythema to medial aspect of left lower extremity. No purulence DISCHARGE PLAN: Diet: The patient may return to normal regular diet. Activity: May return to normal activity as tolerated. The patient was advised to return to the emergency department if he experiences any fever, worsening of his redness to his lower extremity, chest pain, or difficulty breathing. He is advised to follow up with his primary care provider within 1 week and he is advised to take his antibiotic prescription starting this afternoon and to continue it to completion. It may be of benefit to have outpatient JUAN testing to rule out peripheral arterial disease though it does appear that he does have some venous insufficiency as well. The patient 's home medications should otherwise be continued. Primary care provider should follow up on the blood cultures to ensure that there is no growth on subsequent days. DISCHARGE MEDICATIONS: Cephalexin 500 mg p.o. four times a day x5 days. Continued home medications: 1. Lisinopril 5 mg p.o. daily. 2. Tylenol 650 mg p.o. q.6 hours p.r.n. pain. 3. Timolol 0.5% ophthalmic drops, 1 drop both eyes q.a.m. 4. Levothyroxine 200 mcg p.o. daily. 5. Latanoprost 1 drop both eyes at bedtime. 6. Toviaz 8 mg p.o. daily. CONDITION ON DISCHARGE: Stable. DISPOSITION: To home. TIME SPENT: Approximately 35 minutes was spent on this discharge, approximately half of this time was spent at bedside. ANAND GANDARA [id number]/CPS #: [id number] NIKITA
== END 2018-09-06 11:50 | disposition home or self-care (01) ==
LOC: ED 23:09 → MED 09-05 06:09
PROVIDERS: ADMIT Hospitalist; ATTEND Internal Medicine
DX: A41.9 Sepsis, unspecified organism (principal); C64.9 Malignant neoplasm of unspecified kidney, except renal pelvis; N18.3 Chronic kidney disease, stage 3 (moderate); E03.9 Hypothyroidism, unspecified; N40.0 Benign prostatic hyperplasia without lower urinary tract symptoms; H40.9 Unspecified glaucoma; G47.33 Obstructive sleep apnea (adult) (pediatric); I10 Essential (primary) hypertension; R11.0 Nausea; Z90.5 Acquired absence of kidney
CPT/HCPCS: 36415; 71046; 80048; 80053; 81003; 83605; 84484; 85025; 85027; 85610; 86140; 87040; 94660; 96365; 96366; 96372; 99284; A9270-GY; G0378; J0690; J1650

== ENCOUNTER 2018-10-19 12:45 | Day surgery (SDC) | payer MEDICARE, OTHER ==
[~2018-10-19 12:45] MED LIST: Buffered Lidocaine 1% SYRIN* 1 ML/SYRINGE INTRADERM ONE; Famotidine IV* 10 MG/ML 2 ML (20 mg) IV ONE; Lactated Ringers 1000 ML Bag* 1,000 ML IV SCH
[2018-10-19] MEDS ORDERED: Famotidine IV* 10 MG/ML 2 ML (20 mg) ONE (13:05)
[2018-10-19] MEDS ORDERED: Buffered Lidocaine 1% SYRIN* 1 ML/SYRINGE INTRADERM ONE (13:05)
[2018-10-19] MEDS ORDERED: Lidocaine 2% PF * 5 ML VIAL ONE (13:20)
[2018-10-19] MEDS ORDERED: Dexamethasone IV* 4 MG/ML 1 ML (4 MG) ONE (13:20)
[2018-10-19] MEDS ORDERED: Ondansetron INJ* 2 MG/ML VIAL ONE (13:20)
[2018-10-19] MEDS ORDERED: Propofol* 10 MG/ML 20 ML BTL ONE (13:20)
[2018-10-19] MEDS ORDERED: fentaNYL* 50 MCG/ML 2 ML VIAL (100 MCG VIAL) ONE (13:21)
[2018-10-19] MEDS ORDERED: Midazolam* 1 MG/ML 5 ML VIAL (5 MG) ONE (13:21)
[2018-10-19] MEDS ORDERED: Bupivacaine 0.25% SDV PF* 10 ML VIAL INJ ONE (13:38)
[2018-10-19] MEDS ORDERED: KETAMINE HCL* 50 MG/ML 10 ML VIAL ONE (13:58)
[2018-10-19] MEDS ORDERED: EPHEDrine (Pressors)* 50 MG/ML VIAL ONE (14:07)
[2018-10-19] MEDS ORDERED: Naloxone* 0.4 MG/ML 1 ML VIAL IV PRN (14:29)
[2018-10-19] MEDS ORDERED: fentaNYL* 50 MCG/ML 2 ML VIAL (100 MCG VIAL) IV PRN (14:29)
[2018-10-19] MEDS ORDERED: Ondansetron INJ* 2 MG/ML VIAL IV PRN (14:29)
[2018-10-19 15:13] VITALS: BP 151/78
--- NOTE | 2018-10-19 20:31 | OP ---
DATE OF OPERATION: 10/19/18 - [facility] DATE OF : 32 SURGEON: Mitchell Kothari MD. SEPARATOR INSERTER: None. ANESTHESIOLOGIST: Dr. Mccabe. ANESTHESIA: General. PRE-OP DIAGNOSIS: Right carpal tunnel syndrome. POST-OP DIAGNOSIS: Right carpal tunnel syndrome. OPERATIVE PROCEDURE: Right endoscopic carpal tunnel release. 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 It is very painful, it is not letting him sleep. We talked about risks and benefits. He wanted to proceed. ESTIMATED BLOOD LOSS: 2 mL. COMPLICATIONS: None. FINDINGS: See above and below. DESCRIPTION OF PROCEDURE: Mauro was seen in the preoperative holding area. The correct site, side, and procedure were identified. We came back to the operating room, where the arm was prepped and draped in the usual fashion and a time-out was performed. The arm was exsanguinated with the Esmarch and the tourniquet was inflated to 250 mmHg. I made a 1 cm transverse incision just ulnar to the palmaris longus tendon and just proximal to the wrist flexion crease. Dissection was carried down and the distal antebrachial fascia was split transversally, bluntly with the tenotomy scissors. A two-prong skin hook was placed. I then used a synovial stripper followed by the dilators and a Q-tip to dilate and dry out the carpal tunnel. The MicroAire endoscopic carpal tunnel system was then introduced into the carpal tunnel. I went ahead in the appropriate location. I pulled the trigger to elevate the blade and then the release was completed from distal to proximal as I pulled back. Once I completed the release, I placed the August retractor and confirmed the release that was complete distally as well as proximally. Everything was looking good. I released the distal antebrachial fascia proximally with the tenotomy scissors. The wound was irrigated out. Skin was closed with 4-0 Prolene suture and Steri-Strips. Marcaine 0.25% was infiltrated around the operative area. Soft dressing was applied and he was taken to the recovery room in stable condition. [id number]/CPS #: [id number] MTDD
== END 2018-10-19 15:46 | disposition home or self-care (01) ==
LOC: OR 12:45
PROVIDERS: ATTEND Orthopaedic Surgery Hand Surgery
DX: G56.01 Carpal tunnel syndrome, right upper limb (principal); I10 Essential (primary) hypertension; G47.33 Obstructive sleep apnea (adult) (pediatric); E03.9 Hypothyroidism, unspecified; N18.9 Chronic kidney disease, unspecified; Z85.528 Personal history of other malignant neoplasm of kidney
CPT/HCPCS: J1100; J2250; J2405; J2704; J3010; J3490

== ENCOUNTER 2019-01-23 16:38 | Emergency (ER) | payer MEDICARE, OTHER ==
[2019-01-23] MEDS ORDERED: Ibuprofen TAB* 600 MG PO ONE (16:50)
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
[2019-01-23 18:19] VITALS: BP 170/85
== END 2019-01-23 18:18 | disposition home or self-care (01) ==
LOC: ED 16:38
DX: T20.04XA Burn of unspecified degree of nose (septum), initial encounter (principal); V47.5XXA Car driver injured in collision with fixed or stationary object in traffic accident, initial encounter; Y92.411 Interstate highway as the place of occurrence of the external cause; E03.9 Hypothyroidism, unspecified; I25.10 Atherosclerotic heart disease of native coronary artery without angina pectoris; N40.0 Benign prostatic hyperplasia without lower urinary tract symptoms; N18.9 Chronic kidney disease, unspecified; Z90.5 Acquired absence of kidney; Z96.653 Presence of artificial knee joint, bilateral
CPT/HCPCS: 99283; A9270-GY

== ENCOUNTER 2019-01-29 14:28 | Emergency (ER) | payer SELFPAY ==
[2019-01-29] MEDS ORDERED: NS 0.9% 1000 ML** 1,000 ML IV ONE (15:05)
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
[2019-01-29 15:59] LABS: ABS Eosinophils 0.1 10^3/ul (0-0.6); ABS Lymphocytes 1.6 10^3/ul (1.0-4.8); ABS Monocytes 0.3 10^3/ul (0-0.8); ABS Neutrophils 3.6 10^3/ul (1.5-7.7); Eosinophil % 2.5 %; Hematocrit 37 % (42-52); Hemoglobin 12.9 g/dL (14.0-18.0); Mean Corpuscular HGB Conc 34 g/dL (31-36); Mean Corpuscular Hemoglobin 31 pg (27-31); Mean Corpuscular Volume 89 fL (80-94); Mean Platelet Volume 7.4 fL (7.4-10.4); Nucleated Red Blood Cells % 0.1; Platelet Count 161 10^3/uL (150-450); Red Blood Count 4.22 10^6 /uL (4.18-5.48); Red Cell Distribution Width 14 % (10-15); White Blood Count 5.6 10^3/uL (3.5-10.8)
[2019-01-29 16:18] LABS: Troponin I 0.01 ng/mL (<0.04)
[2019-01-29 16:30] LABS: Alcohol < 10 mg/dL (<10)
[2019-01-29 16:31] LABS: ALT 12 U/L (7-52); AST 12 U/L (13-39); Albumin 3.9 g/dL (3.2-5.2); Albumin/Globulin Ratio 1.4 (1-3); Alkaline Phosphatase 54 U/L (34-104); Anion Gap 5 mmol/L (2-11); Blood Urea Nitrogen 39 mg/dL (6-24); CO2 Carbon Dioxide 28 mmol/L (22-32); Calcium 9.4 mg/dL (8.6-10.3); Chloride 108 mmol/L (101-111); EGFR African American 51.2 (>60); EGFR Non-African American 42.3 (>60); Globulin 2.7 g/dL (2-4); Glucose 111 mg/dL (70-100); Sodium 141 mmol/L (135-145); Total Protein 6.6 g/dL (6.4-8.9)
[2019-01-29 17:37] LABS: Urine Appearance Clear; Urine Bilirubin Negative (Negative); Urine Blood Negative (Negative); Urine Color Yellow; Urine Glucose Negative (Negative); Urine Ketones Negative (Negative); Urine Nitrite Negative (Negative); Urine Protein Negative (Negative); Urine Specific Gravity 1.017 (1.010-1.030); Urine Urobilinogen Negative (Negative)
[2019-01-29 19:05] VITALS: BP 145/70
== END 2019-01-29 19:03 | disposition home or self-care (01) ==
LOC: ED 14:28
DX: R41.0 Disorientation, unspecified (principal); E86.0 Dehydration; I70.0 Atherosclerosis of aorta; E03.9 Hypothyroidism, unspecified; I25.10 Atherosclerotic heart disease of native coronary artery without angina pectoris; N40.0 Benign prostatic hyperplasia without lower urinary tract symptoms; N18.9 Chronic kidney disease, unspecified; Z90.5 Acquired absence of kidney; Z85.528 Personal history of other malignant neoplasm of kidney; Z79.899 Other long term (current) drug therapy
CPT/HCPCS: 36415; 70450; 71250; 74176; 80053; 80320; 81003; 82140; 83605; 84484; 85025; 93005; 96360; 99283; G0480

== ENCOUNTER 2019-08-19 19:57 | Observation (INO) ==
[2019-08-19 20:31] LABS: ABS Eosinophils 0.1 10^3/ul (0-0.6); ABS Lymphocytes 1.7 10^3/ul (1.0-4.8); ABS Monocytes 0.6 10^3/ul (0-0.8); Eosinophil % 1.5 %; Hematocrit 34 % (42-52); Hemoglobin 11.9 g/dL (14.0-18.0); Mean Corpuscular HGB Conc 35 g/dL (31-36); Mean Corpuscular Hemoglobin 31 pg (27-31); Mean Corpuscular Volume 87 fL (80-94); Mean Platelet Volume 7.9 fL (7.4-10.4); Nucleated Red Blood Cells % 0.1; Platelet Count 144 10^3/uL (150-450); Red Blood Count 3.87 10^6 /uL (4.18-5.48); Red Cell Distribution Width 14 % (10-15); White Blood Count 6.6 10^3/uL (3.5-10.8)
[2019-08-19 21:01] LABS: Albumin 3.8 g/dL (3.2-5.2); Albumin/Globulin Ratio 1.7 (1-3); BUN/Creatinine Ratio 21.3 (8-20); Calcium 8.6 mg/dL (8.6-10.3); EGFR African American 46.7 (>60); EGFR Non-African American 38.6 (>60); Globulin 2.3 g/dL (2-4); Potassium 4.7 mmol/L (3.5-5.0); Total Bilirubin 0.6 mg/dL (0.2-1.0); Total Protein 6.1 g/dL (6.4-8.9)
[2019-08-20 06:25] LABS: ABS Eosinophils 0.1 10^3/ul (0-0.6); ABS Lymphocytes 1.8 10^3/ul (1.0-4.8); ABS Monocytes 0.6 10^3/ul (0-0.8); Eosinophil % 2.5 %; Hematocrit 35 % (42-52); Hemoglobin 12.3 g/dL (14.0-18.0); Mean Corpuscular HGB Conc 36 g/dL (31-36); Mean Corpuscular Hemoglobin 31 pg (27-31); Mean Corpuscular Volume 87 fL (80-94); Platelet Count 140 10^3/uL (150-450); Red Blood Count 3.98 10^6 /uL (4.18-5.48); Red Cell Distribution Width 14 % (10-15)
[2019-08-20 06:48] LABS: BUN/Creatinine Ratio 20.3 (8-20); EGFR African American 54.4 (>60); HDL Cholesterol 24.4 mg/dL; Potassium 4.1 mmol/L (3.5-5.0)
[2019-08-20] MEDS: Heparin 5000 UNITS/ML VIAL(*) 1 ml vial SUBCUT SCH ×2 (07:35→14:11)
[2019-08-20] MEDS ORDERED: FESOTERODINE 8 MG PO SCH (09:00)
[2019-08-20] MEDS ORDERED: Timolol XE 0.5% (OPHTH)(NF) 1 DROP BTL BOTH EYES SCH (09:00)
[2019-08-20 15:26] VITALS: BP 157/42
[2019-08-20] MEDS ORDERED: Latanoprost 0.005% 2.5 ml BTL BOTH EYES SCH (18:00)
== END 2019-08-20 17:10 | disposition home or self-care (01) ==
LOC: MEDTELE 19:57 → ED 19:57 → MEDTELE 22:59
PROVIDERS: ADMIT Internal Medicine; ATTEND Internal Medicine

== ENCOUNTER 2020-05-18 12:23 | Inpatient (IN) ==
[2020-05-18] MEDS ORDERED: NS 0.9% 1000 ml BAG 1,000 ML IV ONE (12:50)
[2020-05-18 13:09] LABS: ABS Lymphocytes 0.4 10^3/ul (1.0-4.8); ABS Monocytes 0.7 10^3/ul (0-0.8); ABS Neutrophils 14.4 10^3/ul (1.5-7.7); Hematocrit 37 % (42-52); Hemoglobin 12.4 g/dL (14.0-18.0); Lymphocyte % 2.4 %; Mean Corpuscular HGB Conc 34 g/dL (31-36); Mean Corpuscular Hemoglobin 29 pg (27-31); Mean Corpuscular Volume 87 fL (80-94); Mean Platelet Volume 7.9 fL (7.4-10.4); Platelet Count 147 10^3/uL (150-450); Red Blood Count 4.22 10^6 /uL (4.18-5.48); Red Cell Distribution Width 14 % (10-15); White Blood Count 15.5 10^3/uL (3.5-10.8)
[2020-05-18 13:27] LABS: ALT 38 U/L (7-52); AST 41 U/L (13-39); Albumin 4.4 g/dL (3.2-5.2); Albumin/Globulin Ratio 1.8 (1-3); Alkaline Phosphatase 86 U/L (34-104); Anion Gap 8 mmol/L (2-11); Blood Urea Nitrogen 44 mg/dL (6-24); CO2 Carbon Dioxide 24 mmol/L (22-32); Calcium 9.7 mg/dL (8.6-10.3); Chloride 107 mmol/L (101-111); Creatine Kinase 144 U/L (10-223); EGFR African American 44.4 (>60); EGFR Non-African American 36.7 (>60); Globulin 2.5 g/dL (2-4); Glucose 136 mg/dL (70-100); Sodium 139 mmol/L (135-145); Total Protein 6.9 g/dL (6.4-8.9)
[2020-05-18 13:29] LABS: Ammonia 30 mcmol/L (16-53); Troponin I 0.02 ng/mL (<0.03)
[2020-05-18 13:31] LABS: Alcohol, S < 10 mg/dL (<10)
[2020-05-18] MEDS ORDERED: Iodixanol (CONTRAST) 320 MG/ML 100 ML SDV IV ONE (13:43)
[2020-05-18 13:46] LABS: TSH Ultra Thyroid Stim Horm 2.06 mcIU/mL (0.34-5.60)
[2020-05-18 15:46] LABS: BNP 49 pg/mL (<=100)
[2020-05-18] MEDS: Vancomycin 1,500 MG in NS 0.9% 250 ml 250 ML IVPB ONE ×2 (15:50→16:55)
[2020-05-18] MEDS ORDERED: Ondansetron 4 mg VIAL 2 MG/ML 2 ml VIAL IV PRN (16:44)
[2020-05-18] MEDS ORDERED: NS 0.9% 1000 ml BAG 1,000 ML IV SCH (16:45)
[2020-05-18 16:48] LABS: Urine Appearance Cloudy; Urine Bilirubin Negative (Negative); Urine Blood 1+ (Negative); Urine Color Yellow; Urine Glucose Negative (Negative); Urine Ketones Negative (Negative); Urine Nitrite Negative (Negative); Urine Protein Negative (Negative); Urine Urobilinogen Negative (Negative)
[2020-05-18] MEDS ORDERED: NS 0.9% 1000 ml BAG 1,000 ML IV.FLUID IV ONE (16:52)
[2020-05-18] MEDS ORDERED: cefTRIAXone 1 GM/50 ML PREMIX.BAG IV ONE (17:00)
[2020-05-18 17:03] LABS: Urine Bacteria Absent (Absent); Urine Red Blood Cell Trace(0-2/hpf) (Absent); Urine White Blood Cell Trace(0-5/hpf) (Absent)
[2020-05-18] MEDS ORDERED: GuaiFENesin DM 100 mg/10 mg in 5 ML UDC PO PRN (17:47)
[2020-05-18] MEDS: Latanoprost 0.005% 2.5 ml BTL BOTH EYES SCH (22:13)
[2020-05-18] MEDS: Enoxaparin 30 MG/0.3 ML SYR SUBCUT SCH (22:13)
[2020-05-19 06:52] LABS: ABS Lymphocytes 0.8 10^3/ul (1.0-4.8); ABS Monocytes 0.5 10^3/ul (0-0.8); ABS Neutrophils 7.7 10^3/ul (1.5-7.7); Hematocrit 30 % (42-52); Hemoglobin 10.6 g/dL (14.0-18.0); Mean Corpuscular HGB Conc 35 g/dL (31-36); Mean Corpuscular Hemoglobin 30 pg (27-31); Mean Corpuscular Volume 87 fL (80-94); Mean Platelet Volume 7.9 fL (7.4-10.4); Platelet Count 113 10^3/uL (150-450); Red Blood Count 3.51 10^6 /uL (4.18-5.48); Red Cell Distribution Width 14 % (10-15)
[2020-05-19 07:11] LABS: EGFR Non-African American 43.5 (>60); Potassium 3.9 mmol/L (3.5-5.0)
[2020-05-19 07:12] LABS: Albumin 3.2 g/dL (3.2-5.2); Albumin/Globulin Ratio 1.6 (1-3); Calcium 8.2 mg/dL (8.6-10.3); EGFR African American 52.6 (>60); Total Bilirubin 0.7 mg/dL (0.2-1.0); Total Protein 5.2 g/dL (6.4-8.9)
[2020-05-19] MEDS: Aspirin EC 81 mg TAB.EC (enteric coated) PO SCH (08:55)
[2020-05-19] MEDS: cefTRIAXone 1 gm/50 mL NS BAG 1 GM/50 ML BAG IVPB SCH (08:55)
[2020-05-19] MEDS: Enoxaparin 30 MG/0.3 ML SYR SUBCUT SCH (21:59)
[2020-05-19] MEDS: Latanoprost 0.005% 2.5 ml BTL BOTH EYES SCH (22:02)
[2020-05-20 06:11] LABS: ABS Lymphocytes 0.9 10^3/ul (1.0-4.8); ABS Monocytes 0.3 10^3/ul (0-0.8); ABS Neutrophils 4.6 10^3/ul (1.5-7.7); Eosinophil % 0.7 %; Hematocrit 30 % (42-52); Hemoglobin 10.5 g/dL (14.0-18.0); Lymphocyte % 15.6 %; Mean Corpuscular HGB Conc 35 g/dL (31-36); Mean Corpuscular Hemoglobin 30 pg (27-31); Mean Corpuscular Volume 86 fL (80-94); Mean Platelet Volume 8.3 fL (7.4-10.4); Nucleated Red Blood Cells % 0.1; Platelet Count 100 10^3/uL (150-450); Red Cell Distribution Width 14 % (10-15); White Blood Count 5.9 10^3/uL (3.5-10.8)
[2020-05-20 06:31] LABS: Calcium 8.4 mg/dL (8.6-10.3); EGFR African American 55.1 (>60); EGFR Non-African American 45.6 (>60); Potassium 3.3 mmol/L (3.5-5.0)
[2020-05-20] MEDS: cefTRIAXone 1 gm/50 mL NS BAG 1 GM/50 ML BAG IVPB SCH (08:31)
[2020-05-20] MEDS: Aspirin EC 81 mg TAB.EC (enteric coated) PO SCH (08:32)
[2020-05-20] MEDS ORDERED: Potassium Chlor 20 meq TAB.ER PO ONE (10:36)
[2020-05-20] MEDS: Enoxaparin 30 MG/0.3 ML SYR SUBCUT SCH (22:10)
[2020-05-20] MEDS: Latanoprost 0.005% 2.5 ml BTL BOTH EYES SCH (22:22)
[2020-05-21] MEDS: Aspirin EC 81 mg TAB.EC (enteric coated) PO SCH (09:12)
[2020-05-21] MEDS: cefTRIAXone 1 gm/50 mL NS BAG 1 GM/50 ML BAG IVPB SCH (09:16)
[2020-05-21] MEDS ORDERED: Furosemide 20 mg/2 ml IV VIAL IV ONE (10:30)
[2020-05-21] MEDS: Enoxaparin 30 MG/0.3 ML SYR SUBCUT SCH (22:21)
[2020-05-21] MEDS: Latanoprost 0.005% 2.5 ml BTL BOTH EYES SCH (22:21)
[2020-05-22] MEDS ORDERED: Polyethylene Glycol 3350 17 GM PACKET PO PRN (07:26)
[2020-05-22] MEDS ORDERED: Magnesium Hydroxide LIQ 30 ML UDC PO PRN (07:26)
[2020-05-22] MEDS: Aspirin EC 81 mg TAB.EC (enteric coated) PO SCH (07:55)
[2020-05-22] MEDS: Magnesium Hydroxide LIQ 30 ML UDC PO SCH ×2 (07:56→20:07)
[2020-05-22 08:34] LABS: Hematocrit 33 % (42-52); Hemoglobin 11.2 g/dL (14.0-18.0); Mean Corpuscular HGB Conc 34 g/dL (31-36); Mean Corpuscular Hemoglobin 30 pg (27-31); Mean Corpuscular Volume 86 fL (80-94); Mean Platelet Volume 7.6 fL (7.4-10.4); Platelet Count 147 10^3/uL (150-450); Red Blood Count 3.79 10^6 /uL (4.18-5.48); Red Cell Distribution Width 14 % (10-15); White Blood Count 4.7 10^3/uL (3.5-10.8)
[2020-05-22] MEDS ORDERED: Potassium Chlor 20 meq TAB.ER PO ONE (08:49)
[2020-05-22 08:53] LABS: BUN/Creatinine Ratio 18.8 (8-20); C Reactive Protein 64.52 mg/L (<8.01); Calcium 8.7 mg/dL (8.6-10.3); EGFR African American 58.8 (>60); EGFR Non-African American 48.6 (>60); Potassium 3.4 mmol/L (3.5-5.0)
[2020-05-22] MEDS: ceFAZolin 2 GM PREMIX 2 GM/50 ML BAG IVPB SCH ×3 (11:55→20:07)
[2020-05-22] MEDS: Enoxaparin 30 MG/0.3 ML SYR SUBCUT SCH (20:07)
[2020-05-22] MEDS: Senna TAB 8.6 mg TAB PO PRN (20:07)
[2020-05-22] MEDS: Latanoprost 0.005% 2.5 ml BTL BOTH EYES SCH (20:16)
[2020-05-23] MEDS: ceFAZolin 2 GM PREMIX 2 GM/50 ML BAG IVPB SCH ×2 (05:17→11:53)
[2020-05-23 05:55] LABS: Hematocrit 31 % (42-52); Hemoglobin 10.9 g/dL (14.0-18.0); Mean Corpuscular HGB Conc 35 g/dL (31-36); Mean Corpuscular Hemoglobin 30 pg (27-31); Mean Corpuscular Volume 86 fL (80-94); Mean Platelet Volume 7.3 fL (7.4-10.4); Platelet Count 156 10^3/uL (150-450); Red Blood Count 3.64 10^6 /uL (4.18-5.48); Red Cell Distribution Width 14 % (10-15); White Blood Count 4.7 10^3/uL (3.5-10.8)
[2020-05-23 06:12] LABS: BUN/Creatinine Ratio 19.6 (8-20); Calcium 8.8 mg/dL (8.6-10.3); EGFR African American 58.8 (>60); EGFR Non-African American 48.6 (>60); Potassium 4.3 mmol/L (3.5-5.0)
[2020-05-23] MEDS: Magnesium Hydroxide LIQ 30 ML UDC PO SCH ×2 (10:04→20:59)
[2020-05-23] MEDS: Aspirin EC 81 mg TAB.EC (enteric coated) PO SCH (10:05)
[2020-05-23 15:34] LABS: C Reactive Protein 37.88 mg/L (<8.01)
[2020-05-23] MEDS: Enoxaparin 30 MG/0.3 ML SYR SUBCUT SCH (20:58)
[2020-05-23] MEDS: Sulfamethox/Trimethoprim DS TAB 800/160 mg PO SCH (20:58)
[2020-05-23] MEDS: Senna TAB 8.6 mg TAB PO PRN (20:58)
[2020-05-23] MEDS: Latanoprost 0.005% 2.5 ml BTL BOTH EYES SCH (20:59)
[2020-05-24 06:16] LABS: BUN/Creatinine Ratio 19.8 (8-20); Calcium 8.6 mg/dL (8.6-10.3); EGFR African American 71.9 (>60); EGFR Non-African American 59.4 (>60)
[2020-05-24] MEDS ORDERED: PEG 3000 GI LAVAGE 1 GALLON PO ONE (08:10)
[2020-05-24] MEDS: Aspirin EC 81 mg TAB.EC (enteric coated) PO SCH (09:26)
[2020-05-24] MEDS: Magnesium Hydroxide LIQ 30 ML UDC PO SCH (09:26)
[2020-05-24] MEDS: Sulfamethox/Trimethoprim DS TAB 800/160 mg PO SCH (09:27)
[2020-05-24 12:29] VITALS: BP 113/51
== END 2020-05-24 18:30 | DRG 872 ==
LOC: ED 12:23 → MED 12:23
PROVIDERS: ADMIT Pediatrics; ATTEND Internal Medicine

== ENCOUNTER 2021-03-22 08:07 | Inpatient (IN) ==
[2021-03-22 08:52] LABS: ABS Lymphocytes 0.4 10^3/ul (1.0-4.8); ABS Monocytes 0.7 10^3/ul (0-0.8); Hematocrit 32 % (42-52); Hemoglobin 10.8 g/dL (14.0-18.0); Lymphocyte % 2.6 %; Mean Corpuscular HGB Conc 33 g/dL (31-36); Mean Corpuscular Hemoglobin 30 pg (27-31); Mean Corpuscular Volume 89 fL (80-94); Mean Platelet Volume 8.2 fL (7.4-10.4); Platelet Count 134 10^3/uL (150-450); Red Blood Count 3.65 10^6 /uL (4.18-5.48); Red Cell Distribution Width 14 % (10-15); White Blood Count 16.2 10^3/uL (3.5-10.8)
[2021-03-22 08:59] LABS: Urine Appearance Clear; Urine Bilirubin Negative (Negative); Urine Blood Negative (Negative); Urine Color Yellow; Urine Glucose Negative (Negative); Urine Ketones Negative (Negative); Urine Nitrite Negative (Negative); Urine Protein Negative (Negative); Urine Specific Gravity 1.018 (1.002-1.030); Urine Urobilinogen Negative (Negative)
[2021-03-22 09:07] LABS: ALT 91 U/L (7-52); AST 116 U/L (13-39); Albumin 3.8 g/dL (3.2-5.2); Albumin/Globulin Ratio 1.5 (1-3); Alkaline Phosphatase 115 U/L (35-149); Anion Gap 7 mmol/L (2-11); Blood Urea Nitrogen 38 mg/dL (6-24); CO2 Carbon Dioxide 26 mmol/L (22-32); Chloride 106 mmol/L (101-111); Globulin 2.6 g/dL (2-4); Glucose 168 mg/dL (70-100); Potassium 4.3 mmol/L (3.5-5.0); Sodium 139 mmol/L (135-145); Total Protein 6.4 g/dL (6.4-8.9); eGFR CKD-EPI 37.8 (>60)
[2021-03-22] MEDS ORDERED: Azithromycin 500 mg/250 ml NS 500 MG/250 ML BAG IVPB ONE (10:32)
[2021-03-22] MEDS ORDERED: cefTRIAXone 1 gm/50 mL NS BAG 1 GM/50 ML BAG IV ONE (10:32)
[2021-03-22 11:36] LABS: Troponin I 0.36 ng/mL (<0.03)
[2021-03-22] MEDS ORDERED: Ondansetron 4 mg VIAL 2 MG/ML 2 ml VIAL IV PRN (12:20)
[2021-03-22] MEDS ORDERED: Lactated Ringers 1000 ml BAG IV.FLUID IV ONE (12:22)
[2021-03-22] MEDS ORDERED: Piperacillin/Tazobac ADVAN 3.375 GM in NS 0.9% 100 ml BAG 100 ML IV ONE (12:23)
[2021-03-22 12:32] LABS: Troponin I 0.47 ng/mL (<0.03)
[2021-03-22] MEDS ORDERED: Zosyn per Pharmacy NOTE FOLLOW UP SCH (13:00)
[2021-03-22] MEDS: Heparin 5000 UNITS/ML 1 mL VIAL SUBCUT SCH ×2 (15:26→21:26)
[2021-03-22] MEDS: ZOSYN 3.375 GM Q8H per EXTENDED INFUSION IV SCH (18:24)
[2021-03-22 20:42] LABS: Troponin I 0.54 ng/mL (<0.03)
[2021-03-22] MEDS: Latanoprost 0.005% 2.5 ml BTL BOTH EYES SCH (21:46)
[2021-03-23] MEDS: ZOSYN 3.375 GM Q8H per EXTENDED INFUSION IV SCH ×5 (04:59→20:14)
[2021-03-23] MEDS: Heparin 5000 UNITS/ML 1 mL VIAL SUBCUT SCH ×3 (05:08→20:14)
[2021-03-23] MEDS: Cholecalciferol (VIT D3) 1,000 unit TAB PO SCH (05:08)
[2021-03-23 06:10] LABS: ABS Lymphocytes 1.2 10^3/ul (1.0-4.8); ABS Monocytes 0.4 10^3/ul (0-0.8); ABS Neutrophils 8.2 10^3/ul (1.5-7.7); Hematocrit 29 % (42-52); Lymphocyte % 12.5 %; Mean Corpuscular HGB Conc 34 g/dL (31-36); Mean Corpuscular Hemoglobin 30 pg (27-31); Mean Corpuscular Volume 87 fL (80-94); Mean Platelet Volume 8.4 fL (7.4-10.4); Platelet Count 114 10^3/uL (150-450); Red Blood Count 3.36 10^6 /uL (4.18-5.48); Red Cell Distribution Width 14 % (10-15); White Blood Count 9.9 10^3/uL (3.5-10.8)
[2021-03-23 06:26] LABS: Troponin I 0.63 ng/mL (<0.03)
[2021-03-23 06:29] LABS: ALT 78 U/L (7-52); AST 87 U/L (13-39); Albumin 3.5 g/dL (3.2-5.2); Albumin/Globulin Ratio 1.3 (1-3); Alkaline Phosphatase 98 U/L (35-149); Anion Gap 6 mmol/L (2-11); Blood Urea Nitrogen 37 mg/dL (6-24); CO2 Carbon Dioxide 25 mmol/L (22-32); Calcium 8.7 mg/dL (8.6-10.3); Chloride 105 mmol/L (101-111); Globulin 2.6 g/dL (2-4); Glucose 124 mg/dL (70-100); Potassium 3.7 mmol/L (3.5-5.0); Sodium 136 mmol/L (135-145); Total Protein 6.1 g/dL (6.4-8.9); eGFR CKD-EPI 38.6 (>60)
[2021-03-23] MEDS ORDERED: FESOTERODINE 4 MG PO SCH (09:00)
[2021-03-23 12:11] LABS: Troponin I 0.54 ng/mL (<0.03)
[2021-03-23] MEDS ORDERED: Perflutren Lipid Microsphere 3 ML VIAL ONE (12:46)
[2021-03-23 14:53] LABS: C Reactive Protein 33.54 mg/L (<8.01)
[2021-03-23] MEDS: Latanoprost 0.005% 2.5 ml BTL BOTH EYES SCH (20:14)
[2021-03-23] MEDS: Timolol 0.5% OPTH.SOL BTL BOTH EYES SCH (20:15)
[2021-03-24] MEDS: Heparin 5000 UNITS/ML 1 mL VIAL SUBCUT SCH ×3 (05:14→20:40)
[2021-03-24] MEDS: ZOSYN 3.375 GM Q8H per EXTENDED INFUSION IV SCH ×2 (05:15→12:55)
[2021-03-24] MEDS: Cholecalciferol (VIT D3) 1,000 unit TAB PO SCH (05:15)
[2021-03-24 06:19] LABS: ABS Eosinophils 0.1 10^3/ul (0-0.6); ABS Lymphocytes 1.1 10^3/ul (1.0-4.8); ABS Monocytes 0.4 10^3/ul (0-0.8); ABS Neutrophils 4.1 10^3/ul (1.5-7.7); Eosinophil % 2.4 %; Hematocrit 29 % (42-52); Hemoglobin 10.1 g/dL (14.0-18.0); Lymphocyte % 18.6 %; Mean Corpuscular HGB Conc 35 g/dL (31-36); Mean Corpuscular Hemoglobin 30 pg (27-31); Mean Corpuscular Volume 88 fL (80-94); Mean Platelet Volume 8.7 fL (7.4-10.4); Platelet Count 109 10^3/uL (150-450); Red Blood Count 3.32 10^6 /uL (4.18-5.48); Red Cell Distribution Width 14 % (10-15); White Blood Count 5.7 10^3/uL (3.5-10.8)
[2021-03-24 06:41] LABS: Albumin 3.1 g/dL (3.2-5.2); Albumin/Globulin Ratio 1.2 (1-3); C Reactive Protein 128.65 mg/L (<8.01); Calcium 8.4 mg/dL (8.6-10.3); Globulin 2.5 g/dL (2-4); Potassium 3.6 mmol/L (3.5-5.0); Total Bilirubin 0.6 mg/dL (0.2-1.0); Total Protein 5.6 g/dL (6.4-8.9); eGFR CKD-EPI 38.1 (>60)
[2021-03-24] MEDS: Timolol 0.5% OPTH.SOL BTL BOTH EYES SCH ×2 (08:26→08:28)
[2021-03-24] MEDS: FESOTERODINE 8 MG PO SCH (08:26)
[2021-03-24] MEDS: Latanoprost 0.005% 2.5 ml BTL BOTH EYES SCH (20:40)
[2021-03-24] MEDS ORDERED: cefTRIAXone 1 gm/50 mL NS BAG 1 GM/50 ML BAG IVPB SCH (21:00)
[2021-03-24] MEDS ORDERED: Timolol 0.5% OPTH.SOL BTL BOTH EYES SCH (21:00)
[2021-03-25 05:16] LABS: ABS Eosinophils 0.2 10^3/ul (0-0.6); ABS Lymphocytes 1.4 10^3/ul (1.0-4.8); ABS Monocytes 0.3 10^3/ul (0-0.8); ABS Neutrophils 2.6 10^3/ul (1.5-7.7); Eosinophil % 3.5 %; Hematocrit 30 % (42-52); Hemoglobin 10.1 g/dL (14.0-18.0); Lymphocyte % 31.8 %; Mean Corpuscular HGB Conc 34 g/dL (31-36); Mean Corpuscular Hemoglobin 30 pg (27-31); Mean Corpuscular Volume 89 fL (80-94); Mean Platelet Volume 8.2 fL (7.4-10.4); Platelet Count 121 10^3/uL (150-450); Red Blood Count 3.38 10^6 /uL (4.18-5.48); Red Cell Distribution Width 14 % (10-15); White Blood Count 4.5 10^3/uL (3.5-10.8)
[2021-03-25 05:33] LABS: C Reactive Protein 86.82 mg/L (<8.01); Calcium 8.5 mg/dL (8.6-10.3); Potassium 3.8 mmol/L (3.5-5.0); eGFR CKD-EPI 44.2 (>60)
[2021-03-25] MEDS: Heparin 5000 UNITS/ML 1 mL VIAL SUBCUT SCH ×2 (05:46→13:17)
[2021-03-25] MEDS: Cholecalciferol (VIT D3) 1,000 unit TAB PO SCH (05:46)
[2021-03-25] MEDS: FESOTERODINE 8 MG PO SCH (08:50)
[2021-03-25 12:45] VITALS: BP 140/57
== END 2021-03-25 14:30 | disposition home or self-care (01) | DRG 871 ==
LOC: ED 08:07 → EDHOLD 12:20 → MEDTELE 14:46
PROVIDERS: ADMIT Hospitalist; ATTEND Internal Medicine